=== PATIENT | female | born 1990 | race Hispanic/Latino ===

== ENCOUNTER 2020-04-04 19:35 | Observation (INO) | payer SELFPAY ==
[~2020-04-04] VITALS: Ht 162.6 cm; Wt 63.0 kg
--- OUTSIDE RECORDS SUMMARY | 2020-04-04 19:38 | XMS REPORT ---
Author Author [facility] t Organization [facility] Address [address] [place] [address] Phone Unavailable Care Team Providers Care Front End Software Engineer Name Role Phone NO, PCP PCP Unavailable MONA JULIAN Attphys Unavailable Eunice Nguyen CNM Attphys 1Jovan Rn [facility] Attphys Unavailable Porsha Jules MD Attphys Doctor Unassigned, Name No Attphys Unavailable Tereso Wayne CNM Attphys , [facility] Attphys Unavailable MONA JULIAN Admphys Unavailable Porsha Jules MD Admphys Payers Payer Name Policy Type Policy Number Effective Date Expiration Date S ource Problems Condition Name Condition Details Condition Category Status Onset Date Resolution Date Last Treatment Date Treating Clinician Comments Source Pancreatitis Problem Active [facility] Cholecystitis Problem Active [facility] Allergies, Adverse Reactions, Alerts Allergy Name Allergy Type Status Severity Reaction(s) Onset Date Inacti ve Date Treating Clinician Comments Source Aspirin Allergy to substance Active Severe SWELLING IN TON YESSI AND THROAT 2020-03-06 00:00:00 [facility] aspirin DA Active [place] 2019-07-25 00:00:00 [facility] No Known Allergies DA Active U 2019-07-25 00:00:00 [facility] Social History Social Habit Start Date Stop Date Quantity Comments Source Sex Assigned At 1990 00:00:00 1990 00:00:00 Female [facility] Medications Ordered Medication Name Filled Medication Name Start Date Stop Da te Current Medication? Ordering Clinician Indication Dosage Frequency Signature (SIG) Comments Components Source Famotidine (Pepcid) 20 Mg TABLET Famotidine (Pepcid) 20 Mg T ABLET 2020-03-10 08:52:00 Yes 20 Twice A Day [facility] Ondansetron Hcl (Zofran*) 4 Mg TABLET Ondansetron Hcl (Zofra n*) 4 Mg TABLET 2020-03-10 08:52:00 Yes 4 Every 4 Hour s as needed for Nausea/Vomiting [facility] Vital Signs Vital Name Observation Time Observation Value Comments Source Body Temperature 2020-03-10 11:46:00 97.7 [degF] [facility] Weight 2020-03-08 00:47:00 159.56 [lb_av] [facility] BMI (Body Mass Index) 2020-03-08 00:47:00 25.4 kg/m2 [facility] Procedures Procedure Date / Time Performed Performing Clinician Antonio cruz US Gallbladder 2020-03-10 00:00:00 [facility] Magnetic resonance cholangiopancreatography (MRCP) wit hout contrast 2020-03-07 00:00:00 [facility] CT of abdomen and pelvis without contrast 2020-03-06 00:00:00 [facility] Computed tomography of abdomen with contrast 2020-03-06 00:00:00 [facility] Plan of Care Planned Activity Planned Date Details Comments Source Instructions Cholelithiasis [facility] Encounters Start Date/Time End Date/Time Encounter Type Admission Type [facility] Care Department Encounter ID Source 2020-03-06 17:55:00 2020-03-10 14:24:00 Discharged Inpatient 1 MONA JULIAN [facility] [id number] [facility] 2020-01-09 10:52:18 2020-01-09 11:47:42 Routine Visit Yeny Nguyen [facility] [employer]ENT[employer] METAL [facility] [id number] 2019-12-26 10:04:52 2019-12-26 10:45:22 Nurse Visit 1Christopher Rn [facility] [employer] APPRENTICE METAL [facility] [id number] 2019-12-19 06:31:00 2019-12-21 13:20:00 Hospital Encounter Charly Jules [facility] [id number] 2019-12-19 00:00:00 2019-12-19 00:00:00 Orders Only D octor Unassigned, [place] [facility] [id number] 2019-12-17 13:16:43 2019-12-17 14:01:45 Routine Visit Viviana Wayne [facility] [employer] MET[employer] [facility]ILD [facility] [id number] 2019-12-13 15:34:16 2019-12-13 16:37:54 Routine Visit Viviana Wayne [facility] [employer]ENT[employer] MET[employer] [facility] [id number] 2019-07-18 16:05:34 2019-07-18 16:50:45 Routine Visit Yeny Nguyen [facility] [employer] APPRENTICE METAL [facility] & CHILD [facility] [id number] 2019-06-19 15:28:12 2019-06-19 16:04:29 Routine Visit Yeny Nguyen [facility] [employer] APPRENTICE METAL [facility] & CHILD [facility] [id number] 2019-06-11 15:27:50 2019-06-11 15:54:27 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 2020-03-10 11:26:00 [place] [address] Patient Name: RANDALL IVORY MR #: [id number] : 1990 Age/Sex: 29/F Req #: [id number] Adm Physician: MONA JULIAN MD Ordered by: MONA JULIAN MD Report #: [id number] Location: MED/SURG Room/Bed: [facility] Procedure: [id number] US/US GALLBLADDER Exam Date: 03/10/20 Exam Time: 0942 REPORT STATUS: Signed EXAM: Right upper quadrant abdominal ultrasound INDICATION: Right upper quadrant pain COMPARISON: CT abdomen and pelvis of 03/06/2020 TECHNIQUE: Transverse and longitudinal images of the right upper quadrant abdomen were obtained FINDINGS: Liver: Size: 14.3 cm in the right midclavicular line, normal Appearance: Increased echogenicity, smooth contour Mass: No focal masses Gallbladder: Multiple echogenic gallstones in the gallbladder. No gallbladder wall thickening, gallbladder distention, or pericholecystic fluid. Gallbladder wall measures 3 mm. Negative sonographic Gallagher's sign. Bile Ducts: Intrahepatic Ducts: No dilatation Extrahepatic Ducts: Common bile duct measures 4 mm Pancreas: Visualized portions of the pancreatic head, neck and proximal body are normal. Kidney: The right kidney measures 10.9 cm without evidence of hydronephrosis or stone. Vessels: Aorta: Visualized portions are normal Inferior Vena Cava: Visualized portions are normal Main Portal Vein: 0.9 cm, normal size with hepatopetal flow. Free Fluid: No ascites or pleural effusion IMPRESSION: Cholelithiasis without sonographic evidence of cholecystitis. Mild hepatic steatosis. Signed by: Cuba Payton MD on 03/10/2020 11:28 AM Dictated By: CUBA PAYTON MD 27 Transcribed By: DENISSE on 03/10/201127 COPY TO: MONA JULIAN MD Serum or plasma total bilirubin measurement (mass/volume) 26-03-04 05:15:00 Test Item Total Bilirubin (test code = 1975-2) 0.9 0.2-1.2 [facility] conjugated bilirubin measurement (mass/volume)2020-03-10 05:15:00* Test Item Value Reference Range Interpretation Comments Direct Bilirubin (test code = 39632-7) 0.5 0.0-0.5 [facility] procedure less than one hour [id number] 05:15:00* Test Item Value Reference Range Interpretation Comments Aspartate Amino Transf (AST/SGOT) (test code = Aspartate Amino Transf (AST/SGOT)) 63 5-34 [facility] alanine aminotransferase measurement (enzymatic activity/volume)2020-03-10 05:15:00* Test Item Value Reference Range Interpretation Comments Alanine Aminotransferase (ALT/SGPT) (test code = 1742-6) 532 0-55 [facility] protein measurement (mass/volume)2020-03-10 05:15:00* Test Item Value Reference Range Interpretation Comments Total Protein (test code = 2885-2) 6.8 6.5-8.1 [facility] albumin measurement (mass/volume)2020-03-10 05:15:00* Test Item Value Reference Range Interpretation Comments Albumin (test code = 1751-7) 3.7 3.5-5.0 [facility] alkaline phosphatase measurement (enzymatic activity/volume)2020-03-10 05:15:00* Test Item Value Reference Range Interpretation Comments Alkaline Phosphatase (test code = 6768-6) 155 40-150 [facility] lipase measurement (enzymatic activity/volume)2020-03-10 05:15:00* Test Item Value Reference Range Interpretation Comments Lipase (test code = 3040-3) 92 8-78 [facility] leukocytes automated count (number/volume)2020-03-09 05:30:00* Test Item Value Reference Range Interpretation Comments White Blood Count (test code = 6690-2) 5.17 4.8-10.8 [facility] erythrocytes automated count (number/volume)2020-03-09 05:30:00* Test Item Value Reference Range Interpretation Comments Red Blood Count (test code = 789-8) 4.79 3.6-5.1 [facility] hemoglobin measurement (moles/volume)2020-03-09 05:30:00* Test Item Value Reference Range Interpretation Comments Hemoglobin (test code = 28214-4) 13.3 12.0-16.0 [facility] HospitalAutomated blood hematocrit (volume fraction)2020-03-09 05:30:00* Test Item Value Reference Range Interpretation Comments Hematocrit (test code = 4544-3) 39.5 34.2-44.1 [facility] HospitalAutomated erythrocyte mean corpuscular rttaha6746-65-69 05:30:00* Test Item Value Reference Range Interpretation Comments Mean Corpuscular Volume (test code = 787-2) 82.5 81-99 [facility] HospitalAutomated erythrocyte mean corpuscular hemoglobin (mass per erythrocyte)2020-03-09 05:30:00* Test Item Value Reference Range Interpretation Comments Mean Corpuscular Hemoglobin (test code = 785-6) 27.8 28-32 [facility] HospitalAutomated erythrocyte mean corpuscular hemoglobin concentration measurement (mass/volume)2020-03-09 05:30:00* Test Item Value Reference Range Interpretation Comments Mean Corpuscular Hemoglobin Concent (test code = 786-4) 33.7 31-35 [facility] HospitalRDW KdnSm-Evp6978-14-03 05:30:00* Test Item Value Reference Range Interpretation Comments Red Cell Distribution Width (test code = 34948-1) 13.8 11.7 -14.4 [facility] HospitalAutomated blood platelet count (count/volume)2020-03-09 05:30:00* Test Item Value Reference Range Interpretation Comments Platelet Count (test code = 777-3) 210 140-360 [facility] HospitalAutomated blood segmented neutrophil count as percentage of total jidwwlhiuc6545-11-17 05:30:00* Test Item Value Reference Range Interpretation Comments Neutrophils (%) (Auto) (test code = 93693-7) 57.7 38.7-80.0 [facility] HospitalAutomated blood lymphocyte count as percentage ot total qtqslvctgn0610-26-78 05:30:00* Test Item Value Reference Range Interpretation Comments Lymphocytes (%) (Auto) (test code = 736-9) 26.3 18.0-39.1 [facility] HospitalAutomated blood monocyte count as percentage of total nzbzpvjlkq2696-30-13 05:30:00* Test Item Value Reference Range Interpretation Comments Monocytes (%) (Auto) (test code = 5905-5) 10.4 4.4-11.3 [facility] HospitalAutomated blood eosinophil count as percentage of total oibbcfspit2809-89-65 05:30:00* Test Item Value Reference Range Interpretation Comments Eosinophils (%) (Auto) (test code = 713-8) 4.6 0.0-6.0 [facility] HospitalAutomated blood basophil count as percentage of total hnymonskyp5978-45-61 05:30:00* Test Item Value Reference Range Interpretation Comments Basophils (%) (Auto) (test code = 706-2) 0.8 0.0-1.0 [facility] HospitalFluoroscopic procedure less than one hour pszzlmnd7381-18-24 05:30:00* Test Item Value Reference Range Interpretation Comments IM GRANULOCYTES % (test code = IM GRANULOCYTES %) 0.2 0.0- 1.0 [facility] HospitalAutomated blood neutrophil count 2020-03-09 05:30:00* Test Item Value Reference Range Interpretation Comments Neutrophils # (Auto) (test code = 751-8) 3.0 2.1-6.9 [facility] HospitalBlood lymphocytes count (number/volume) 2020-03-09 05:30:00* Test Item Value Reference Range Interpretation Comments Lymphocytes # (Auto) (test code = 59370-9) 1.4 1.0-3.2 [facility] monocytes automated count (number/volume)2020-03-09 05:30:00* Test Item Value Reference Range Interpretation Comments Monocytes # (Auto) (test code = 742-7) 0.5 0.2-0.8 [facility] HospitalAutomated blood eosinophil count 2020-03-09 05:30:00* Test Item Value Reference Range Interpretation Comments Eosinophils # (Auto) (test code = 711-2) 0.2 0.0-0.4 [facility] HospitalAutomated blood basophil count (count/volume)2020-03-09 05:30:00* Test Item Value Reference Range Interpretation Comments Basophils # (Auto) (test code = 704-7) 0.0 0.0-0.1 [facility] HospitalFluoroscopic procedure less than one hour iccosnho7065-41-18 05:30:00* Test Item Value Reference Range Interpretation Comments Absolute Immature Granulocyte (auto (izabel t code = Absolute Immature Granulocyte (auto) 0.01 0-0.1 [facility] sodium measurement (moles/volume)2020-03-09 05:30:00* Test Item Value Reference Range Interpretation Comments Sodium Level (test code = 2951-2) 138 136-145 [facility] potassium measurement (moles/volume)2020-03-09 05:30:00* Test Item Value Reference Range Interpretation Comments Potassium Level (test code = 2823-3) 3.2 3.5-5.1 [facility] chloride measurement (moles/volume)2020-03-09 05:30:00* Test Item Value Reference Range Interpretation Comments Chloride Level (test code = 2075-0) 110 98-107 [facility] carbon dioxide, total measurement (moles/volume)2020-03-09 05:30:00* Test Item Value Reference Range Interpretation Comments Carbon Dioxide Level (test code = 2028-9) 16 22-29 [facility] anion bkf1364-07-41 05:30:00* Test Item Value Reference Range Interpretation Comments Anion Gap (test code = 71796-5) 15.2 8-16 [facility] urea nitrogen measurement (mass/volume)2020-03-09 05:30:00* Test Item Value Reference Range Interpretation Comments Blood Urea Nitrogen (test code = 3094-0) 5 7-26 [facility] creatinine measurement (mass/volume)2020-03-09 05:30:00* Test Item Value Reference Range Interpretation Comments Creatinine (test code = 2160-0) 0.62 0.57-1.11 [facility] urea nitrogen/creatinine mass xdpaq1934-28-71 05:30:00* Test Item Value Reference Range Interpretation Comments BUN/Creatinine Ratio (test code = 3097-3) 8 6-25 [facility] HospitalEstimated glomerular filtration rate (GFR) dtlkoewsixzrc5572-11-61 05:30:00* Test Item Value Reference Range Interpretation Comments Estimat Glomerular Filtration Rate (test code = 624336410) > 60 >60 Ranges were taken from the National Kidney Disease Education Program and the [facility] Kid[facility] Foundation literature.Reference ranges:60 or greater: Worsul74-55 ( for 3 consecutive months): Chronic kidney disease 15 or less: Kidney failureCH[facility]stGlucose cpvlkikuxxg6602-80-25 05:30:00* Test Item Value Reference Range Interpretation Comments Glucose Level (test code = HUY7427) 65 74-118 [facility] calcium measurement (mass/volume)2020-03-09 05:30:00* Test Item Value Reference Range Interpretation Comments Calcium Level (test code = 35275-2) 8.9 8.4-10.2 [facility] HospitalMRI MRCP [id number] 19:05:00 [place] [address] Patient Name: RANDALL IVORY MR #: [id number] : 1990 Age/Sex: 29/F Req #: [id number] Adm Physician: MONA JULIAN MD Ordered by: MONA JULIAN MD Report #: [id number] Location: MED/SURG Room/Bed: [facility] Procedure: [id number] M RI/MRI MRCP WO Exam Date: Exam Time: REPORT STATUS: Signed EXAMINATION: MRI Abdome n without contrast/MRCP. TECHNIQUE: Axial T1 nonfat sat in and out of p hase, axial T2 with and without fat sat, coronal T2 nonfat sat, axial DWI and ADC MR images of the abdomen were obtained. No intravenous gadolinium was admi nistered. Heavily T2-weighted MRCP images were also performed including thick and thin slab ASSETT and 3-D reconstructions. CLINICAL HISTORY:Cholecyst itis, pancreatitis COMPARISON: CT abdomen 03/06/2020 FINDINGS:LACK OF G ADOLINIUM DECREASES SENSITIVITY FOR DETECTION OF INTRA-ABDOMINAL PATHOLOGY. LOWER THORAX: Unremarkable. LIVER: The hepatic contour is normal.. No s ignificant hepatic signal abnormality. No focal hepatic lesions. BILIA RY: No intra or extrahepatic biliary ductal dilation. The common bile duct is normal in caliber, measuring approximately 4 mm at the bradley hepatis and 2 mm at the pancreatic head. No intraluminal filling defects, strictures or extrins ic compressions.. Moderate to marked diffuse gallbladder wall thickening, whi ch measures approximately 1.0 cm. No gallbladder stones or sludge. PANCRE : .No mass or ductal dilatation. No peripancreatic increased T2 signal, free fluid or fluid collections. Assessment of the pancreatic parenchyma is limite d by lack of intravenous contrast. SPLEEN: No splenomegaly. ADRENALS: No nodules. KIDNEYS: No hydronephrosis or contour abnormalities in the imag ed portion of the kidneys. PERITONEUM / RETROPERITONEUM: No upper abdomin al free fluid. GI TRACT: Visualized bowel shows no dilation. LYMPH NOD ES: No upper abdominal lymphadenopathy. VESSELS: Normal flow voids are iden tified BONES AND SOFT TISSUES: No abnormal bone marrow signal. No soft tis ladan abnormalities. IMPRESSION: 1. No MR evidence of choledocholithi asis. 2. Diffuse gallbladder wall thickening suggesting cholecystitis. No s tones or sludge are identified. 3. Unremarkable appearance of the pancrea s in this noncontrast exam. Assessment of pancreatic parenchyma is limited by lack of intravenous contrast. Signed by: Dr. Olu Gaspar M.D. on 03/08/2020 7:13 PM Dictated By: OLU GASPAR MD 191 Transcribed By: DENISSE on 03/08/20 191 3 COPY TO: MONA JULIAN MD Serum or plasma ethanol measurement (mass/volume)2020-03-07 16:02:00* Test Item Value Reference Range Interpretation Comments Ethyl Alcohol Level (test code = 5643-2) < 10.0 0.0-10.0 [facility]CT [facility] [id number] 17:00:00 [facility] [address] [place] [address] Patient Name: RANDALL IVORY MR #: [id number] : 1990 Age/Sex: 29/F Req #: [id number] Adm Physician: Ordered by: PABLO DUNCAN COLOR CHECKER Report #: [id number] Location: ER Room/Bed: Procedure: CT/CT ABDOMEN W Exam Date: 03/06/20 Exam Time: 16 47 REPORT STATUS: Signed CT o f the abdomen. Comparison: CT of the abdomen and pelvis without oral or IV contrast done approximately 90 minutes earlier. Clinical History: Abdominal pain with elevation of lipase. Technique: CT scan of the abdomen was perfo rmed. Intravenous contrast administration was utilized. Oral contrast admini stration was not utilized. Multiple images were submitted for interpretation. This exam was performed according to our departmental dose-optimization progr am which includes automated exposure control, adjustment of the mA and/or kV according to patient size Discussion: Inferior chest: Unremarkable Li abdirizak: Unremarkable Spleen: Unremarkable Pancreas: Unremarkable Biliary t ree and gallbladder: There is severe wall thickening of the gallbladder. The gallbladder wall measures approximately 8 mm. There is no radiopaque calculus. There is no pericholecystic fluid collection at this time. There is no gallbl adder associated gas. There is no intra or extrahepatic biliary ductal dilatat ion. For example the common bile duct measures 6 mm. There is no biliary ducta l calculus. Adrenal glands: Unremarkable Kidneys: Unremarkable Vasculatu re: Unremarkable Lymph nodes: No lymphadenopathy Bowel: Unremarkable Fl uid: No free fluid Bones: Unremarkable Impression: CT findings sugges tive of acute cholecystitis without abscess formation at this time. No radiopa que biliary calculi are seen. Signed by: Adan Watson MD on 03/06/2020 5:0 5 PM Dictated By: ADAN WATSON MD 04 Transcribed By: DENISSE on 03/06/201704 COPY TO: PABLO DUNCAN COLOR CHECKER CT ABDOMEN/PELVIS [id number] 16:04:00 [place] [address] Patient Name: RANDALL IVORY MR #: [id number] : 1990 Age/Sex: 29/F Req #: [id number] [facility] Physician: Ordered by: PABLO DUNCAN COLOR CHECKER Report #: [id number] Location: ER Room/Bed: Procedure: CT/CT ABDOMEN/PELVIS WO Exam Date: 03/06/20 Exam Time: 1510 REPORT STATUS: Signed ADDENDUM #1 New information just became available on this patient. There is elevation of lipase. The pancreas does not show any per ipancreatic stranding, low-density areas or peripancreatic fluid collections. There is no gallstone. There is no intrahepatic or extrahepatic biliary dilata tion. Please note that an IV contrast enhanced CT of the abdomen would be help ful to further evaluate the biliary tree and pancreas. A single phase Portal v enous phase CT of the abdomen may be performed to minimize radiation exposure in this woman of childbearing age. Signed by: Adan Watson MD on 020 4:[address] of the abdomen and pelvi s. Comparison: None Clinical History: Abdominal pain nausea vomiting epigastric Technique: Helical CT scan of the abdomen and pelvis was perform ed. Intravenous contrast administration was not utilized. Oral contrast ad ministration was not utilized. Coronal and sagittal reconstructions were gener ated from the raw data. This exam was performed according to our department al dose-optimization program which includes automated exposure control, adjust ment of the mA and/or kV according to patient size Discussion: Infe rior chest: Unremarkable. Liver: Unremarkable Spleen: Unremarkable Panc reas: Unremarkable Biliary tree and gallbladder: Unremarkable Adrenal glan ds: Unremarkable Kidneys and ureters: Unremarkable. Specifically, no perinep hric stranding, hydronephrosis, renal or ureteric calculi. Vasculature: Unr emarkable Lymph nodes: No lymphadenopathy Bowel: Unremarkable. Specificall y, no bowel obstruction. Pelvis: Urinary bladder is unremarkable. Female pelvi c organs unremarkable. Pelvic wall unremarkable. Peritoneum: Unremarkable Perineal compartments: unremarkable. Fluid: No free fluid Bones: Unremarka ble Body wall: Unremarkable Impression: No significant abnormality on t he CT of abdomen and pelvis without contrast in this patient. Specifically, no findings to account for the patient's symptoms. Signed by: Adan Watson MD on 03/06/2020 4:06 PM Dictated By: ADAN WATSON MD Electronically S igned By: ADAN WATSON MD on 03/06/20 161 Transcribed By: DENISSE on 1606 COPY TO: PABLO DUNCAN NP Urine color determination 2020-03-06 14:20:00* Test Item Value Reference Range Interpretation Comments Urine Color (test code = 5778-6) STRAW YELLOW [facility] Hospital[facility] wracbkg3897-35-94 14:20:00* Test Item Value Reference Range Interpretation Comments Urine Clarity (test code = 82701-1) SL CLOUDY CLEAR [facility] Urine by Test strip 2020-03-06 14:20:00* Test Item Value Reference Range Interpretation Comments Urine Specific Allison (test code = 5811-5) 1.020 1.010-1.02 5 [facility] HospitalU[facility] pH measurement by automated test knnkc1725-95-50 14:20:00* Test Item Value Reference Range Interpretation Comments Urine pH (test code = 90644-8) 7 5-7 [facility] HospitalUrine leukocyte esterase detection by [id number] 14:20:00* Test Item Value Reference Range Interpretation Comments Urine Leukocyte Esterase (test code = 5799-2) NEGATIVE [facility]GATIVE [facility] nitrite [id number] 14:20:00* Test Item Value Reference Range Interpretation Comments Urine Nitrite (test code = 98650-2) NEGATIVE NEGATIVE [facility] protein measurement by test strip (mass/volume)2020-03-06 14:20:00* Test Item Value Reference Range Interpretation Comments Urine Protein (test code = 5804-0) NEGATIVE NEGATIVE [facility] HospitalU[facility] glucose [id number] 14:20:00* Test Item Value Reference Range Interpretation Comments Urine Glucose (UA) (test code = 2349-9) NEGATIVE NEGATIVE [facility] HospitalUrine ketones detection by automated test [id number] 14:20:00* Test Item Value Reference Range Interpretation Comments Urine Ketones (test code = 96925-6) NEGATIVE NEGATIVE [facility] HospitalUrine urobilinogen measurement by test strip (mass/volume)2020-03-06 14:20:00* Test Item Value Reference Range Interpretation Comments Urine Urobilinogen (test code = 03529-2) 0.2 0.2-1 [facility] HospitalU[facility] total bilirubin measurement (mass/volume)2020-03-06 14:20:00* Test Item Value Reference Range Interpretation Comments Urine Bilirubin (test code = 1978-6) MODERATE NEGATIVE [facility] HospitalUrine erythrocytes [id number] 14:20:00* Test Item Value Reference Range Interpretation Comments Urine Blood (test code = 23509-5) TRACE NEGATIVE [facility] HospitalAutomated urine sediment leukocyte count by microscopy (number/high power field)2020-03-06 14:20:00* Test Item Value Reference Range Interpretation Comments Urine WBC (test code = 5821-4) NONE 0-5 [facility] HospitalErythrocytes detection in urine sediment by light [id number] 14:20:00* Test Item Value Reference Range Interpretation Comments Urine RBC (test code = 58005-0) 0-5 0-5 [facility] HospitalBacteria detection in urine sediment by light [id number] 14:20:00* Test Item Value Reference Range Interpretation Comments Urine Bacteria (test code = 41410-4) RARE NONE [facility] HospitalEpithelial cells detection in urine sediment by light yyyxvpycmb6070-22-82 14:20:00* Test Item Value Reference Range Interpretation Comments Urine Epithelial Cells (test code = 42040-4) FEW NONE [facility] HospitalPlasma globulin measurement (mass/volume) 2020-03-06 14:20:00* Test Item Value Reference Range Interpretation Comments Globulin (test code = 61645-7) 2.9 2.3-3.5 [facility] albumin/globulin mass [id number] 14:20:00* Test Item Value Reference Range Interpretation Comments Albumin/Globulin Ratio (test code = 1759-0) 1.4 0.8-2.0 [facility] amylase measurement (enzymatic activity/volume)2020-03-06 14:20:00* Test Item Value Reference Range Interpretation Comments Amylase Level (test code = 1798-8) 3642 25-125 [facility] or plasma choriogonadotropin ( test) ayqphxwzv1053-10-97 14:20:00* Test Item Value Reference Range Interpretation Comments Human Chorionic Gonadotropin, Qual (test code = 2118-8) NEGATIVE NEGATIVE [facility] HospitalURINALYSIS [id number] 06:57:00* Test Item Value Reference Range Interpretation Comments UA COLOR (test code = COLU) YELLOW YELLOW UA APPEARANCE (test code = APPU) CLEAR CLEAR UA GLUCOSE DIPSTICK (test code = DGLUU) NEGATIVE mg/dL NEGATIVE UA BILIRUBIN DIPSTICK (test code = BILU) NEGATIVE mg/dL NEGATIVE UA KETONE DIPSTICK (test code = KETU) 40 (2+) mg/dL NEGATIVE A UA SPECIFIC GRAVITY (test code = SGU) 1.017 1.001-1.035 UA BLOOD DIPSTICK (test code = MUNIRA) Negative mg/dL NEGATIVE UA PH DIPSTICK (test code = JACINTO) 6.0 5.0-8.0 UA PROTEIN DIPSTICK (test code = PROU) NEGATIVE mg/dL NEGATIVE UA UROBILINIOGEN DIPSTICK (test code = URO) Normal mg/dL NEGATIVE UA NITRITE DIPSTICK (test code = JANICE) NEGATIVE NEGATIVE UA LEUKOCYTE ESTERASE W REFLEX (test code = LEUUR) 500 Alexia/u L (3+) Alexia/uL NEGATIVE A UA WBC (test code = WBCU) 11-20 per HPF 0-5 A UA RBC (test code = RBCU) 0-2 #/HPF 0-5 UA EPITHELIAL CELLS (test code = EPIU) MOD per HPF FEW UA BACTERIA (test code = BACU) FEW #/HPF NONE A UA MUCUS (test code = MUCU) FEW #/LPF FEW SPECIMEN COMMENTS: repeat urinalysis Urine Source? Clean CatchURINALYSIS [id number] 06:55:00* Test Item Value Reference Range Interpretation Comments UA COLOR (test code = COLU) YELLOW YELLOW UA APPEARANCE (test code = APPU) CLEAR CLEAR UA GLUCOSE DIPSTICK (test code = DGLUU) NEGATIVE mg/dL NEGATIVE UA BILIRUBIN DIPSTICK (test code = BILU) NEGATIVE mg/dL NEGATIVE UA KETONE DIPSTICK (test code = KETU) 40 (2+) mg/dL NEGATIVE A UA SPECIFIC GRAVITY (test code = SGU) 1.017 1.001-1.035 UA BLOOD DIPSTICK (test code = MUNIRA) Negative mg/dL NEGATIVE UA PH DIPSTICK (test code = JACINTO) 6.0 5.0-8.0 UA PROTEIN DIPSTICK (test code = PROU) NEGATIVE mg/dL NEGATIVE UA UROBILINIOGEN DIPSTICK (test code = URO) Normal mg/dL NEGATIVE UA NITRITE DIPSTICK (test code = JANICE) NEGATIVE NEGATIVE UA LEUKOCYTE ESTERASE W REFLEX (test code = LEUUR) 500 Alexia/u L (3+) Alexia/uL NEGATIVE A UA WBC (test code = WBCU) per HPF 0-5 UA RBC (test code = RBCU) per HPF 0-5 UA EPITHELIAL CELLS (test code = EPIU) per HPF Few UA BACTERIA (test code = BACU) per HPF NONE SPECIMEN COMMENTS: repeat urinalysis Urine Source? Clean CatchHCG SERUM BETA 2019-07-29 05:58:00* Test Item Value Reference Range Interpretation Comments HCG SERUM BETA (test code = HCG) 81659.0 mIU/mL 0-3 H Interfering substances present in the serum of somepatients may cause a false-positive result in this assay.Questionable elevations in serum hCG should be confirmedwith a urine hCG. Suspected Trophoblastic Neoplasms shouldnot be diagnosed based on serun hCG/beta hCG alone. Theymust be confirmed by clinical history and tissue diagnosis.INTERPRETATION:B-HCG LEVELS <5 SHOULD BE CONSIDERED "NEGATIVE." *WHEN BODERLINE RESULTS ARE ENCOUNTERED,PATIENT SAMPLESSHOULD BE REDRAWN 48 HOURS. 0-1 WEEKS AFTER CONCEPTION 5-50 MIU/ML1-2 WEEKS AFTER CONCEPTION 50-500 MIU/ML2-3 WEEKS AFTER CONCEPTION 100 -5,000 MIU/ML3-4 WEEKS AFTER CONCEPTION 500-10,000 MIU/ML4-5 WEEKS AFTER CONCEPTION 1000 -50,000 MIU/ML5-6 WEEKS AFTER CONCEPTION 10,000-100,000 MIU/ML6-8 WEEKS AFTER CONCEPTION 15,000- 200,000 MIU/ML2-3 MONTHS AFTER CONCEPTION 10,000-100,000 MIU/ML BASIC METABOLIC [id number] 05:42:00* Test Item Value Reference Range Interpretation Comments SODIUM (test code = NA) 139 mmol/L 136-145 N POTASSIUM (test code = K) 3.2 mmol/L 3.5-5.1 L CHLORIDE (test code = CL) 106.0 mmol/L 98-107 N CARBON DIOXIDE (test code = CO2) 26.0 mmol/L 21-32 N ANION GAP (test code = GAP) 10.2 10-20 N GLUCOSE (test code = GLU) 99 mg/dL 74-106 N BLOOD UREA NITROGEN (test code = BUN) 6 mg/dL 7-18 L GLOMERULAR FILTRATION RATE (test code = GFR) > 60 mL/min >=60 Estimated GFR by using Modified MDRD formula.Chronic kidney disease is defined as either kidney damageor GFR <60 mL/min/1.73 m2 for >3 months. CREATININE (test code = CREAT) 0.60 mg/dL 0.55-1.02 N Note change in reference range due to change in reagent. BUN/CREATININE RATIO (test code = BUN/CREA) 9.9 10-20 L CALCIUM (test code = CA) 8.8 mg/dL 8.5-10.1 N HEPATIC FUNCTION [id number] 05:42:00* Test Item Value Reference Range Interpretation Comments TOTAL PROTEIN (test code = PROT) 7.3 gram/dL 6.4-8.2 N ALBUMIN (test code = ALB) 3.3 g/dL 3.4-5.0 L GLOBULIN (test code = GLOB) 4.0 gram/dL 2.7-4.2 N ALBUMIN/GLOBULIN RATIO (test code = A/G) 0.8 0.75-1.50 N BILIRUBIN TOTAL (test code = BILT) 0.60 mg/dL 0.0-1.0 N BILIRUBIN DIRECT (test code = BILD) 0.29 mg/dL 0.0-0.20 H SGOT/AST (test code = AST) 137 IUnit/L 15-37 H SGPT/ALT (test code = ALT) 88 IUnit/L 12-78 H ALKALINE PHOSPHATASE TOTAL (test code = ALKP) 86 IUnit/L 45-117 N Note change in reference range due to change in reagent. [id number] 05:42:00* Test Item Value Reference Range Interpretation Comments LIPASE (test code = LIP) 87 U/L 73.0-393.0 N [id number] 05:42:00* Test Item Value Reference Range Interpretation Comments TROPONIN-I (test code = TROPI) <0.015 ng/mL 0-0.045 N CBC W/O [id number] 05:40:00* Test Item Value Reference Range Interpretation Comments WHITE BLOOD CELL (test code = WBC) 14.2 K/mm3 4.5-12.5 H RED BLOOD CELL (test code = RBC) 4.47 mill/mm3 3.7-5.2 N HEMOGLOBIN (test code = HGB) 12.9 gram/dL 11.5-15.5 N HEMATOCRIT (test code = HCT) 38.3 % 36.0-46.0 N MEAN CELL VOLUME (test code = MCV) 85.7 fL 80-98 N MEAN CELL HGB (test code = MCH) 28.9 picogram 27.0-33.0 N MEAN CELL HGB CONCETRATION (test code = MCHC) 33.7 gram/dL 33.0-36. 0 N RED CELL DISTRIBUTION WIDTH (test code = RDW) 13.7 % 11.6-16. 2 N PLATELET COUNT (test code = PLT) 218 K/mm3 150-450 N MEAN PLATELET VOLUME (test code = MPV) 10.4 fL 6.7-11.0 N CBC W/O [id number] 05:19:00* Test Item Value Reference Range Interpretation Comments WHITE BLOOD CELL (test code = WBC) K/mm3 4.5-12.5 RED BLOOD CELL (test code = RBC) mill/mm3 3.7-5.2 HEMOGLOBIN (test code = HGB) 12.9 gram/dL 11.5-15.5 N HEMATOCRIT (test code = HCT) 38.3 % 36.0-46.0 N MEAN CELL VOLUME (test code = MCV) fL 80-98 MEAN CELL HGB (test code = MCH) picogram 27.0-33.0 MEAN CELL HGB CONCETRATION (test code = MCHC) gram/dL 33.0-36. 0 RED CELL DISTRIBUTION WIDTH (test code = RDW) % 11.6-16. 2 PLATELET COUNT (test code = PLT) K/mm3 150-450 MEAN PLATELET VOLUME (test code = MPV) fL 6.7-11.0 - US ABDOMEN [id number] 04:57:00 Name: RANDALL DE LA CRUZ [facility] : 1990 Age/S: 28 / F [address] [facility] Unit #: [id number] Loc: [place] [address] Phys: Gertrudis Angel COLOR CHECKER Acct: [id number] Dis Date: Status: REG ER PHONE #: [phone] Exam Date: 07/29/2019 0430 FAX #: [phone] Reason: Epigastric EXAMS: CPT CODE: [id number] US ABDOMEN LTD [id number] EXAM: RIGHT UPPER QUADRANT ABDOMINAL ULTRASOUND INDICATION: Epigastric COMPARISON: None available TECHNIQUE: Routine grayscale and color Doppler ultrasound examination of the right upper quadrant was obtained. FINDINGS: The liver is normal in size and measures 15.8 cm. There is normal echogenicity and echotexture of the liver parenchyma. No intrahepatic biliary ductal dilatation. The common bile duct measures 0.6 cm. The main portal vein is normal in size with normal hepatopedal flow. The gallbladder is normal in size. There are multiple gallstones noted within the gallbladder. No pericholecystic fluid is identified. The gallbladder wall thickness is normal measuring 0.3 cm. Negative Gallagher sign. The visualized pancreas is normal. The right kidney measures 11.9 x 4.2 x 5.4 cm and is normal in appearance with normal cortical thickness and cortical echogenicity. No hydronephrosis or nephrolithiasis. Abdominal aorta is normal in course and caliber. The IVC is normal. No free fluid or pleural effusion is ident ified. IMPRESSION: Cholelithiasis with no sonographic ev idence of acute cholelithiasis. Normal sonographic appearance of the conchis er and right kidney. LOCATION: A1 Electro nically Signed by Naomi Patiño M.D. on 07/29/2019 at 0456 Reported and signed by: Naoim ovalle M.D. PAGE 1 Signed Report (CONTINUED) Name: RANDALL DE LA CRUZ [facility] : 1990 Age/S: 28 / F [address] [facility] Unit #: [id number] Loc: [place] [address] Ph s: Gertrudis Angel NP Acct: [id number] Dis Date: Status: REG ER PHONE #: [phone] Exam Date: 07/29/2019 0430 FAX #: [phone] Reason: Epigastric EXAMS: CPT CODE: [id number] ABDOMEN LTD 89956 <Continued> CC: Gertrudis Angel NP Technologist: Patricia Galvan RT(S), RDCA Trnscb Date/Time: 07/29/2019 (0457) 16 Orig Print D/T: S: 07/29/2019 (0530) Probe: PAGE 2 Signed Report URINALYSIS COMPLETE 2019-07-29 03:23:00* Test Item Value Reference Range Interpretation Comments UA COLOR (test code = COLU) YELLOW YELLOW UA APPEARANCE (test code = APPU) Cloudy CLEAR A UA GLUCOSE DIPSTICK (test code = DGLUU) NEGATIVE mg/dL NEGATIVE UA BILIRUBIN DIPSTICK (test code = BILU) NEGATIVE mg/dL NEGATIVE UA KETONE DIPSTICK (test code = KETU) NEGATIVE mg/dL NEGATIVE UA SPECIFIC GRAVITY (test code = SGU) 1.011 1.001-1.035 UA BLOOD DIPSTICK (test code = MUNIRA) Negative mg/dL NEGATIVE UA PH DIPSTICK (test code = JACINTO) 7.5 5.0-8.0 UA PROTEIN DIPSTICK (test code = PROU) NEGATIVE mg/dL NEGATIVE UA UROBILINIOGEN DIPSTICK (test code = URO) Normal mg/dL NEGATIVE UA NITRITE DIPSTICK (test code = JANICE) NEGATIVE NEGATIVE UA LEUKOCYTE ESTERASE W REFLEX (test code = LEUUR) 250 Alexia/u L (2+) Alexia/uL NEGATIVE A UA WBC (test code = WBCU) 6-10 per HPF 0-5 A UA RBC (test code = RBCU) 0-2 #/HPF 0-5 UA EPITHELIAL CELLS (test code = EPIU) MOD per HPF FEW UA BACTERIA (test code = BACU) MODERATE #/HPF NONE A UA MUCUS (test code = MUCU) FEW #/LPF FEW UA AMORPHOUS SEDIMENT (test code = AMORU) MODERATE #/LPF NONE Urine Source? Clean CatchBASIC METABOLIC [id number] 07:49:00* Test Item Value Reference Range Interpretation Comments SODIUM (test code = NA) 141 mmol/L 136-145 N POTASSIUM (test code = K) 2.8 mmol/L 3.5-5.1 Re sults called to [id number] by EDU 07/25/19 0643Critical results verified and read back by Nurse? Y CHLORIDE (test code = CL) 108.0 mmol/L 98-107 H CARBON DIOXIDE (test code = CO2) 22.0 mmol/L 21-32 N ANION GAP (test code = GAP) 13.8 10-20 N GLUCOSE (test code = GLU) 113 mg/dL 74-106 H BLOOD UREA NITROGEN (test code = BUN) 6 mg/dL 7-18 L GLOMERULAR FILTRATION RATE (test code = GFR) > 60 mL/min >=60 Estimated GFR by using Modified MDRD formula.Chronic kidney disease is defined as either kidney damageor GFR <60 mL/min/1.73 m2 for >3 months. CREATININE (test code = CREAT) 0.60 mg/dL 0.55-1.02 N Note change in reference range due to change in reagent. BUN/CREATININE RATIO (test code = BUN/CREA) 10.6 10-20 N CALCIUM (test code = CA) 8.6 mg/dL 8.5-10.1 N HCG SERUM [id number] 07:49:00* Test Item Value Reference Range Interpretation Comments HCG SERUM BETA (test code = HCG) 50238.0 mIU/mL 0-3 H Interfering substances present in the serum of somepatients may cause a false-positive result in this assay.Questionable elevations in serum hCG should be confirmedwith a urine hCG. Suspected Trophoblastic Neoplasms shouldnot be diagnosed based on serun hCG/beta hCG alone. Theymust be confirmed by clinical history and tissue diagnosis.INTERPRETATION:B-HCG LEVELS <5 SHOULD BE CONSIDERED "NEGATIVE." *WHEN BODERLINE RESULTS ARE ENCOUNTERED,PATIENT SAMPLESSHOULD BE REDRAWN 48 HOURS. 0-1 WEEKS AFTER CONCEPTION 5-50 MIU/ML1-2 WEEKS AFTER CONCEPTION 50-500 MIU/ML2-3 WEEKS AFTER CONCEPTION 100 -5,000 MIU/ML3-4 WEEKS AFTER CONCEPTION 500-10,000 MIU/ML4-5 WEEKS AFTER CONCEPTION 1000 -50,000 MIU/ML5-6 WEEKS AFTER CONCEPTION 10,000-100,000 MIU/ML6-8 WEEKS AFTER CONCEPTION 15,000- 200,000 MIU/ML2-3 MONTHS AFTER CONCEPTION 10,000-100,000 MIU/ML URINALYSIS [id number] 06:47:00* Test Item Value Reference Range Interpretation Comments UA COLOR (test code = COLU) YELLOW YELLOW UA APPEARANCE (test code = APPU) Cloudy CLEAR A UA GLUCOSE DIPSTICK (test code = DGLUU) NEGATIVE mg/dL NEGATIVE UA BILIRUBIN DIPSTICK (test code = BILU) NEGATIVE mg/dL NEGATIVE UA KETONE DIPSTICK (test code = KETU) 20 (1+) mg/dL NEGATIVE A UA SPECIFIC GRAVITY (test code = SGU) 1.024 1.001-1.035 UA BLOOD DIPSTICK (test code = MUNIRA) Negative mg/dL NEGATIVE UA PH DIPSTICK (test code = JACINTO) 6.0 5.0-8.0 UA PROTEIN DIPSTICK (test code = PROU) 30 (1+) mg/dL NEGATIVE A UA UROBILINIOGEN DIPSTICK (test code = URO) Normal mg/dL NEGATIVE UA NITRITE DIPSTICK (test code = JANICE) NEGATIVE NEGATIVE UA LEUKOCYTE ESTERASE W REFLEX (test code = LEUUR) 75 Alexia/uL (1+) Alexia/uL NEGATIVE A UA WBC (test code = WBCU) 11-20 per HPF 0-5 A UA RBC (test code = RBCU) 0-2 #/HPF 0-5 UA EPITHELIAL CELLS (test code = EPIU) FEW per HPF FEW UA BACTERIA (test code = BACU) FEW #/HPF NONE A UA CALCIUM OXALATE CRYSTALS (test code = CAOXU) MODERATE #/HPF NONE A UA MUCUS (test code = MUCU) FEW #/LPF FEW Urine Source? Clean CatchBASIC METABOLIC [id number] 06:43:00* Test Item Value Reference Range Interpretation Comments SODIUM (test code = NA) 141 mmol/L 136-145 N POTASSIUM (test code = K) 2.8 mmol/L 3.5-5.1 Re sults called to [id number] by V.LAB.JAYY 07/25/19 0643Critical results verified and read back by Nurse? Y CHLORIDE (test code = CL) 108.0 mmol/L 98-107 H CARBON DIOXIDE (test code = CO2) 22.0 mmol/L 21-32 N ANION GAP (test code = GAP) 13.8 10-20 N GLUCOSE (test code = GLU) 113 mg/dL 74-106 H BLOOD UREA NITROGEN (test code = BUN) 6 mg/dL 7-18 L GLOMERULAR FILTRATION RATE (test code = GFR) > 60 mL/min >=60 Estimated GFR by using Modified MDRD formula.Chronic kidney disease is defined as either kidney damageor GFR <60 mL/min/1.73 m2 for >3 months. CREATININE (test code = CREAT) 0.60 mg/dL 0.55-1.02 N Note change in reference range due to change in reagent. BUN/CREATININE RATIO (test code = BUN/CREA) 10.6 10-20 N CALCIUM (test code = CA) 8.6 mg/dL 8.5-10.1 N HCG SERUM [id number] 06:43:00* Test Item Value Reference Range Interpretation Comments HCG SERUM BETA (test code = HCG) mIU/mL 0-3 - US PREG AFTER [id number] 06:17:00 Name: RANDALL JAVIER [facility] : 1990 Age/S: 28 / F [address] [facility] Unit #: [id number] Loc: [place] [address] Phys: Dillan Up BEHAVIORAL HEALTH SPECIALIST Acct: [id number] Dis Date: Status: REG ER PHONE #: [phone] Exam Date: 07/25/2019 0557 FAX #: [phone] Reason: VAGINAL BLEEDING/PELVIC PAIN EXAMS: CPT CODE: [id number] US PREG AFTER TRI 24291 EXAM: LIMITED OBSTETRIC ULTRASOUND INDICATION: VAGINAL BLEEDING/PELVIC PAIN COMPARISON: None available TECHNIQUE: Routine grayscale and color Doppler ultrasound examination of the . FINDINGS: There is a single uterine in cephalic presentation. The pl acenta is posterior. There is no evidence of previa or protrusion. The c ervix is closed and measures 2.6 cm. Estimated heart rate is 146 fabiana ts per minute. Amniotic fluid index is within normal limits. Approximate sonographic age is 17 weeks 0 days based upon the following: BPD 3.66 cm, 17 weeks 1 day. HC 13.66 cm, 17 weeks 1 day. F L 2.26 cm, 16 weeks 5 days. AC 11.05 cm, 16 weeks 6 days. Fe napoleon ratios include: CI: 0.80 FL/AC: 0.20 HC/AC: 1.24 FL/ BPD: 0.62 weight estimate: 172.65 Grams, 44.6 WT % Limited evaluation of the anatomy was performed. Maternal ovaries: Not identified IMPRESSION: Single intr auterine in cephalic presentation with an approximate sonograp hic age of 17 weeks 0 days. 2. No abnormality identified. LOCATION: A1 PAGE 1 Signed Report (CONTINUED) Name: RANDALL JAVIER [facility] : 1990 Age/S: 28 / F [address] [facility] Unit #: [id number] Loc: [place] [address] Phys: Dillan Up BEHAVIORAL HEALTH SPECIALIST Acct: [id number] Dis Date: Status: REG ER PHONE #: [phone] Exam Date: 07/25/2019 0557 FAX #: [phone] Reason: VAGINAL BLEEDING/PELVIC PAIN EXAMS: CPT CODE: [id number] US PREG AFTER 1ST TRI 81031 < Continued> at 0617 Reported and signed by: Naomi Patiño M.D. CC: Dillan UpP Technologist: CARMEN AGUIRRE RDMS Trnscb Date/Time: 07/25/2019 (616) 16 Orig Print D/T: S: 07/25/2019 (619) Probe: PAGE 2 Signed Report CBC W/O [id number] 06:08:00* Test Item Value Reference Range Interpretation Comments WHITE BLOOD CELL (test code = WBC) 11.2 K/mm3 4.5-12.5 N RED BLOOD CELL (test code = RBC) 4.07 mill/mm3 3.7-5.2 N HEMOGLOBIN (test code = HGB) 12.0 gram/dL 11.5-15.5 N HEMATOCRIT (test code = HCT) 34.6 % 36.0-46.0 L MEAN CELL VOLUME (test code = MCV) 85.0 fL 80-98 N MEAN CELL HGB (test code = MCH) 29.5 picogram 27.0-33.0 N MEAN CELL HGB CONCETRATION (test code = MCHC) 34.7 gram/dL 33.0-36. 0 N RED CELL DISTRIBUTION WIDTH (test code = RDW) 13.9 % 11.6-16. 2 N PLATELET COUNT (test code = PLT) 195 K/mm3 150-450 N MEAN PLATELET VOLUME (test code = MPV) 10.2 fL 6.7-11.0 N
--- OUTSIDE RECORDS SUMMARY | 2020-04-04 19:38 | XMS REPORT | Summary of Care ---
Author Author [facility] Organization [facility] Address Unknown Phone Unavailable Care Team Providers Care Nurse Discharge Planner Name Role Phone Viviana Wayne CNM PCP Reason for Referral * (Routine) Referred By Contact Referred To Contact Status Reason Specialty Diagnoses / Procedures Charly Jules MD [address] [employer] [address] [address] New Request OB Satellites Diagnoses S/P section P rocedures DISCHARGE FOLLOW-UP: [facility] Reason for Visit * Auth/Cert Referred By Contact Referred To Contact Status Reason Specialty Diagnoses / Procedures Jsa[address] [place] [id number] Obstetrics Diagnoses P rocedures DELIVERY Encounter Details Care Team Description Date Type Department Charly Jules MD [address] [email or web address] [address] 39 weeks gestation of 12/19/2019 [facility] Mother Baby Unit (J 8C) - Encounter 301 [facility] 12/21/2019 [place] [address] Allergies Comments Active Allergy Reactions Severity Noted Date Was a child Aspirin Swelling 01/28/2015 documented as of this encounter (statuses as of 12/21/2019) Medications End Date Status Medication Sig Dispensed Refills Start Date Active simethicone 80 mg Take 2 60 tablet 1 12/20/19 2 chewable tablets by 0 tabletIndications: S/P mouth after section meals and at bedtime as needed for Gas. Active vitamin w/FA Take 1 tablet 100 tablet 3 tabletIndications: S/P by mouth 0 section daily. Active docusate calcium 240 mg Take 1 60 capsule 1 capsuleIndications: S/P capsule by 0 section mouth once daily as needed for Constipation. Active ferrous sulfate 325 mg Take 1 tablet 60 tablet 2 0 (65 mg iron) by mouth 2 0 tabletIndications: S/P (two) times section daily. Active HYDROcodone-acetaminophen Take 1 tablet 20 tablet 0 5-325 mg by mouth 0 tabletIndications: S/P every 6 (six) section hours as needed for Pain (scale 4-6). 12/20/2019 Discontinued PNV 67-iron ps-folate Take 1 60 capsule 6 11/08 no.1-dha (VITAFOL ULTRA) capsule by 0 29 mg iron- 1 mg-200 mg mouth daily. CapIndications: High-risk in third trimester documented as of this encounter (statuses as of 12/21/2019) Active Problems Problem Noted Date 39 weeks gestation of 12/19/2019 Breech presentation 11/12/2019 Gallstones 08/21/2019 High-risk in third trimester 07/18/2019 Bicornuate uterus 09/22/2015 Comments Yes documented as of this encounter (statuses as of 12/21/2019) Resolved Problems Problem Noted Date Resolved Date Need for Tdap vaccination 10/26/2019 11/12/2019 Need for prophylactic vaccination and inoculation aga inst influenza 09/27/2019 10/11/2019 Insertion of implantable subdermal contraceptive 6 07/18/2019 Overview: 01/21/16 Implant placed Encounter for removal of intrauterine contraceptive device 01/05/2016 07/18/2019 Overview: 01/05/16 removal IUD Surveillance of previously prescribed intrauterine co ntraceptive device 12/30/2015 07/18/2019 Overview: 12/30/15 IUD check 01/05/16 IUD removal, advised no IUD for contraception d/t abnormal uterus Contraception 11/13/2015 07/18/2019 Overview: 01/05/16 IUD removed Encounter for insertion of intrauterine contraceptive devic e 11/13/2015 07/18/2019 Family planning counseling 11/13/2015 07/18/2019 care and examination of lactating mother 201411/13/2015 General counseling and advice for contraceptive management 10/14/2015 07/18/2019 Third degree laceration of perineum, type 3a 09/23/2015 11/13/2015 Overview: Perineal, 3A Extention, anal sphincter intact Vaginal delivery 09/23/2015 11/13/2015 Active labor at term 09/22/2015 09/23/2015 High-risk , third trimester [O09.93] 09/17/2015 10/14/2015 Immunizations up to date 09/02/2015 10/14/2015 Overview: Tdap and flu given this pg RESEARCH: ARRIVE-Expectant Managment 09/02/2015 1 12/15/2014 Overview: This patient was consented in the ARRIV E Research Study on 09/02/15. IRB # [id number], PI Dr. Szymanski Patient was randomized into the study o n 09/19/2015 and will be in the following group: Expectant Management Arm Pt. Must have at least weekly follow-up visits with provider. Unless pt. delivers spontaneously or a medical indication presents, will continue until at least 40.6 weeks. At 40.6 weeks, the patient may be induc ed at the provider s discretion or continue expectant bunny gement, but must undergo induction if not delivered by 42.2 weeks. testing must be started no later than 41.6 weeks (may be started earlier at the provider s discretion). [email or web address] Page r [phone] Supervision of other high-risk , third trimester 07/17/2015 10/14/2015 Overview: S=d and c/w exam High-risk , first trimester [V23.9] 02/06/2015 09/02/2015 Overview: , NOB at 6w5d per LMP Other specified screening(V28.89) 02/06/2015 10/14/2015 Overview: sono requested, Desires QUAD 28 wk labs wnl, RH + Screening examination for pulmonary tuberculosis 5 10/14/2015 Overview: PPD given 03/10/15. Result neg Flu vaccine need 02/06/2015 09/02/2015 Overview: Flu vaccine 08/19/15 History of migraine 02/06/2015 10/14/2015 Overview: reprts dx 9 yrs ago, last episode 4 mon ths ago, uses Tyelnol. Acid reflux 02/06/2015 10/14/2015 documented as of this encounter (statuses as of 12/21/2019) Immunizations Name Administration Dates Next Due HPV9 12/21/2019 Influenza Virus Vaccine 09/27/2019 Quad .5 mL IM 6+ MO Influenza Virus Vaccine 08/19/2015 Quad IM 3+ YRS PPD (TB) 03/10/2015 TDAP (ADACEL) VACCINE 10/26/2019 Tdap 07/03/2015 documented as of this encounter Social History Date Tobacco Use Types Packs/Day Years Used Never Smoker Smokeless Tobacco: Never Used Drinks/Week oz/Week Comments Alcohol Use 0 Standard drinks or equivalent 0.0 No Comments Yes Sex Assigned at Date Recorded Not on file Industry Job Start Date Occupation Not on file Not on file Not on file Travel End Travel History Travel Start No recent travel history available. documented as of this encounter Last Filed Vital Signs Reading Time Taken Comments Vital Sign 104/56 12/21/2019 8:00 AM RESIDENTIAL HOUSEKEEPER Blood Pressure 74 12/21/2019 8:00 AM RESIDENTIAL HOUSEKEEPER Pulse 36.8 C (98.3 F) 12/21/2019 8:00 AM RESIDENTIAL HOUSEKEEPER Temperature 20 12/21/2019 8:00 AM RESIDENTIAL HOUSEKEEPER Respiratory Rate 98% 12/21/2019 8:00 AM RESIDENTIAL HOUSEKEEPER Oxygen Saturation - - Inhaled Oxygen Concentration 79.8 kg (176 lb) 12/19/2019 6:50 AM RESIDENTIAL HOUSEKEEPER Weight 165.1 cm (5' 5") 12/19/2019 6:50 AM RESIDENTIAL HOUSEKEEPER Height 29.29 12/19/2019 6:50 AM RESIDENTIAL HOUSEKEEPER Body Mass Index documented in this encounter Discharge Instructions * Attachments The following attachments cannot be sent through Care Everywhere.* Breastfeed, How to (Indonesian) * , After (Indonesian) * Human Papillomavirus Quadrivalent Vaccine suspension for injection (Indonesian) * Human Papillomavirus Quadrivalent Vaccine suspension for injection (Greenlandic) documented in this encounter Progress Notes * Niya Gil MD - 12/20/2019 6:18 AM RESIDENTIAL HOUSEKEEPER POST-OPERATIVE PROGRESS NOTE 12/20/2019 6:19 AM Subjective: Overnight patient had no complaints. Her pain is well controlled on oral pain medications. She is tolerating a regular diet. She has not passed fla tus. She is not ambulating without difficulty. Lochia is Scant. She is urinating without adame. Patient denies chest pain, SOB, n/v, headache, RUQ pain, vision changes, dizziness. Objective: VITALS: Patient Vitals for the past 24 hrs: BP Temp Temp src Pulse Resp SpO2 Height Weight 12/20/19 0400 118/68 36.7 C (98.1 F) Oral 88 20 99 % 12/20/19 0000 110/76 37.1 C (98.8 F) Oral 89 20 99 % 12/19/19 2029 102/72 36.9 C (98.4 F) Oral 80 20 98 % 12/19/19 1700 104/64 36.8 C (98.2 F) Oral 95 17 100 % 12/19/19 1403 106/67 36.9 C (98.4 F) Oral 76 17 100 % 12/19/19 1245 98/64 78 17 100 % 12/19/19 1215 102/64 65 17 100 % 12/19/19 1200 104/58 68 17 99 % 12/19/19 1145 100/66 67 17 100 % 12/19/19 1130 95/57 73 17 100 % 12/19/19 1115 95/53 70 14 100 % 12/19/19 1100 105/64 36.4 C (97.5 F) 75 16 100 % 12/19/19 0815 106/74 96 18 100 % 12/19/19 0650 115/76 36.7 C (98 F) Axillary 76 18 100 % 1.651 m (5' 5") 79.8 kg (176 lb) I/O: Intake/Output Summary (Last 24 hours) at 12/20/2019 0619 Last data filed at 12/20/2019 0400 Gross per 24 hour Intake 8125 ml Output 3125 ml Net 5000 ml PE: General: patient alert and in no acute distress Lungs: clear to auscultation bilaterally Cardiology: regular rate and rhythm, no murmur Abdomen: normal tenderness to palpation, soft, bowel sounds present. Fundus is f irm and at umbilicus Incision: Bandage is clean, dry, and intact, will require removal and incision c heck at 1015 Extremities: no clubbing, cyanosis, or edema : deferred MEDS: Current Facility-Administered Medications Medication Dose Route Frequency Last Rate Last Dose bisacodyL (DULCOLAX) suppository 10 mg 10 mg Rectal QDAILYPRN diphenhydrAMINE (BENADRYL) injection 25 mg 25 mg Slow IV Push Q4HPRN diphenhydrAMINE (BENADRYL) tablet 25 mg 25 mg Oral Q6HPRN diphenhydrAMINE (BENADRYL) tablet 25 mg 25 mg Oral Q4HPRN diphenhydrAMINE-0.9 % sod.chlr (BENADRYL) 25 mg/50 mL piggyback 25 mg 25 mg IV Piggyback Q6HPRN docusate calcium (SURFAK) capsule 240 mg 240 mg Oral QDAILYPRN human papillomav vac,9-key(PF) (GARDASIL-9) syringe 0.5 mL 0.5 mL Intramusc ular ONCE-PRIOR TO DISCHARGE HYDROcodone-acetaminophen (NORCO 5) 5-325 mg tablet 1 tablet 1 tablet Oral Q6HPRN 1 tablet at 12/19/19 1256 HYDROcodone-acetaminophen (NORCO 5) 5-325 mg tablet 2 tablet 2 tablet Oral Q6HPRN 2 tablet at 12/20/19 0302 magnesium hydroxide (MILK OF MAGNESIA) 400 mg/5 mL suspension 30 mL 30 mL O ral QDAILYPRN naloxone (NARCAN) injection 0.2 mg 0.2 mg Intramuscular Q3HPRN naloxone (NARCAN) injection 0.4 mg 0.4 mg Slow IV Push PRN - SEE INSTRUCTIO NS ondansetron (ZOFRAN (PF)) injection 4 mg 4 mg Slow IV Push Q8HPRN ondansetron (ZOFRAN (PF)) injection 4 mg 4 mg Slow IV Push [id number] rho(D) immune globulin (RHOGAM) syringe 300 mcg 300 mcg Intramuscular ONCE simethicone (GAS RELIEF (SIMETHICONE)) chewable tablet 160 mg 160 mg Oral P C+HSPRN 160 mg at 12/20/19 0302 LABS: WBC x10^3 (/uL) Date Value 02/06/2015 8.4 WBC (10*3/L) Date Value 12/20/2019 12.44 (H) 11/28/2019 8.57 HGB Date Value 12/20/2019 12.5 g/dL 11/28/2019 12.2 g/dL 02/06/2015 13.0 G/DL HCT (%) Date Value 12/20/2019 38.2 11/28/2019 38.6 02/06/2015 39.0 PLT x10^3 (/uL) Date Value 02/06/2015 229 PLT (10*3/L) Date Value 12/20/2019 156 (L) 11/28/2019 199 Assessment: Ally Ramos is a 29 year old POD#1 s/p primary LTCS on 12/19/19 at 1016 at 39w0d for beau breech presentation, uncomplicated. Patient i s recovering well: hemodynamically stable, good UOP, pain well-controlled, vital s within normal limits. Plan: Postoperative Review: - Admitted for: Primary section - Surgical procedure: Primary Lower uterine tranverse section with no e xtension - Skin incision: pfannenstiel - Closure: sutures - Estimated blood loss: 650 mL - Intraoperative Complications: none - Clinical trials: none - Urine output: ~150cc/hr past 5 hrs - Preop H/H: 12.2/38.6 - Postop H/H: 12.5/38.2 Right ovarian cyst - simple appearing noted on M scan from 08/2019 and 10/2019; measuring 3.01 x 2.43 x 2.12 cm - adnexal not visualized on last scan - Mass removal consent form not done during admission Antepartum course reviewed - 1 h 107, sero neg, RImm, VZVImm, O+/neg, GBS neg, Pap NIL 05/2019 Postoperative care: - Diet: Advance as tolerated - Fluid: Encourage oral intake - Activity: Encourage ambulation and incentive spirometry - Pain: [place] and Ibuprofen - DVT prophylaxis: SCDs and TEDs when not ambulating Discharge Planning - Contraception: OCPs - Vaccines: Gardasil - Follow up in 5-7 days for incision check and/or staple removal at [facility] - [facility] Dispo: Anticipate discharge POD2 Baby's Status - APGARs 8,8 - Weight: 3230 g - Location: bedside Dispo: Patient is POD#1 s/p PCS, will be 24hr @1016 and require dressing removal /incision check. Patient is doing well with no complaints. Needs to meet the [facility] milestones before discharge: incision check, flatus, ambulation. Anticipa te discharge POD2. Will require Gardasil before discharge. Niya Gil MD DENTIAL HOUSEKEEPER Associated attestation - Apolinar Ceron MD - 12/20/2019 11:42 AM RESIDENTIAL HOUSEKEEPER I have seen and evaluated on 12/20/19 the patient thereby confirming the johnson po rtions of the history and physical examination. I discussed the case with the r sameerdent and agree with the findings and plan as documented in the resident note. Patient Active Problem List Diagnosis Bicornuate uterus High-risk in third trimester Gallstones Breech presentation 39 weeks gestation of Apolinar Ceron MD * Ange Do - 12/18/2019 12:57 PM RESIDENTIAL HOUSEKEEPER HISTORY & PHYSICAL IDENTIFYING DATA Ally Ramos is 29 year old, /White, 39w0d, fem juanito with KWABENA 12/26/2019, by Ultrasound. : 1990 Primary Care Physician: Viviana Wayne Hospital Day: 1 CHIEF COMPLAINT Scheduled primary section HISTORY OF PRESENT ILLNESS Ally Ramos is a 29 year old at 39w0d who presents for scheduled primary section secondary to breech presentation. complicated by bicornuate uterus and right ovarian cyst. PAST OBSTETRIC HISTORY OB History Para Term AB Living 2 1 1 1 SAB TAB Ectopic Multiple Live Births 1 # Outcome Date GA Lbr Suresh/2nd Weight Sex Delivery Anes PTL Lv 2 Current 1 Term 09/22/15 39w0d 3640 g M NORMAL SPONT EPI N CINDY Complications: Retained placenta PAST MEDICAL HISTORY Problem list: Patient Active Problem List Diagnosis Date Noted 39 weeks gestation of 12/19/2019 Breech presentation 11/12/2019 Gallstones 08/21/2019 High-risk in third trimester 07/18/2019 Bicornuate uterus 09/22/2015 Operations: No past surgical history on file. Prior surgeries at outside hospitals: none Past Medical History: Diagnosis Date Migraines 9 years last episode 4 months ago use tylenol Reflux gastritis 2012 Use antacids CURRENT HEALTH STATUS Medications: Current Facility-Administered Medications Medication Dose Route Frequency Last Rate Last Dose acetaminophen (TYLENOL) tablet 650 mg 650 mg Oral ONCE ceFAZolin in dextrose (iso-os) (ANCEF) 2 gram/100 mL Piggyback 2 g 2,000 mg IV Piggyback O.R. HOLDING ONCE lactated ringers IV infusion 1,000 mL 1,000 mL IV Infusion CONTINUOUS 125 m L/hr at 12/19/19 0742 1,000 mL at 12/19/19 0742 lactated ringers IV infusion 500 mL 500 mL IV Infusion ONCE sodium citrate-citric acid (BICITRA) 500-334 mg/5 mL solution 30 mL 30 mL O ral PRE-PROCEDURE ONCE Allergies and drug reactions: Asa [aspirin] HOME MEDICATIONS Medications Prior to Admission Medication Sig Dispense Refill Last Dose PNV 67-iron ps-folate no.1-dha (VITAFOL ULTRA) 29 mg iron- 1 mg-200 mg Cap T hans 1 capsule by mouth daily. 60 capsule 6 SOCIAL HISTORY Tobacco History: Social History Tobacco Use Smoking Status Never Smoker Smokeless Tobacco Never Used Drug History: Social History Substance and Sexual Activity Drug Use No Alcohol History: Social History Substance and Sexual Activity Alcohol Use No Alcohol/week: 0.0 standard drinks FAMILY HISTORY Family History Problem Relation Age of Onset Other - see comments Father Liver Diabetes Paternal Aunt No Significant Medical Problems Mother No Significant Medical Problems Sister No Significant Medical Problems Brother No Significant Medical Problems Maternal Aunt No Significant Medical Problems Maternal Uncle No Significant Medical Problems Paternal Uncle No Significant Medical Problems Maternal Grandmother No Significant Medical Problems Maternal Grandfather No Significant Medical Problems Paternal Grandmother No Significant Medical Problems Paternal Grandfather REVIEW OF SYSTEMS General: negative Constitutional: negative Eyes: negative ENT/Mouth: negative Cardiovascular: negative Respiratory: negative Gastrointestinal:negative Genitourinary: negative Musculoskeletal: negative Skin/breast: negative Neurological: negative Psychiatric: negative Endocrine: negative Hemat/Lymph: negative Allergic/Immuno:none VITAL SIGNS BP: (115)/(76) Temp: [36.7 C (98 F)] Temp source: Axillary (12/19 0650) Pulse: [76] Resp: [18] SpO2: [100 %] Height: [165.1 cm (5' 5")] Weight: [79.8 kg (176 lb)] BMI (calculated): [29.29] PHYSICAL EXAMINATIONS General: well-developed, well-nourished Cardiology: regular rate and rhythm Abdomen: fundal height - size equals dates Extremities: no clubbing, cyanosis, or edema Skin: no rashes REVIEW OF LABORATORY, PATHOLOGY, AND RADIOLOGY DATA Lab results: CBC BMP PT/INR WBC x10^3 (/uL) Date Value 02/06/2015 8.4 WBC (10*3/L) Date Value 11/28/2019 8.57 No results found for: NA No results found for: PT RBC x10^6 (/uL) Date Value 02/06/2015 4.70 RBC (10*6/L) Date Value 11/28/2019 4.31 No results found for: K No results found for: PTINR PLT x10^3 (/uL) Date Value 02/06/2015 229 PLT (10*3/L) Date Value 11/28/2019 199 No results found for: CA HGB Date Value 11/28/2019 12.2 g/dL 02/06/2015 13.0 G/DL No results found for: CL aPTT HCT (%) Date Value 11/28/2019 38.6 02/06/2015 39.0 No results found for: BUN No results found for: APTTPAT No results found for: CREAT No results found for: GLU No results found for: TCO2 Type & Screen Rubella Varicella ABO & RH (no units) Date Value 05/21/2019 O POSITIVE RUBELLA (no units) Date Value 02/06/2015 POSITIVE Rubella screen IgG (no units) Date Value 05/21/2019 Positive VZV IgG (no units) Date Value 02/06/2015 POSITIVE (A) No results found for: TSABINT Hep B HIV Syphilis HBsAg (no units) Date Value 02/06/2015 NEGATIVE HIV 1/2 Ab (no units) Date Value 02/06/2015 NEGATIVE SYPH IgG/IgM (no units) Date Value 02/06/2015 Non Reac Group B Strep Chlamydia No results found for: CGBS Chlamydia Amplified Assay (no units) Date Value 02/06/2015 NEGATIVE C. trachomatis Nucleic Acid (no units) Date Value 05/21/2019 Negative HEART RATE Baseline 140, moderate variability, + accelerations, -decelerations ASSESSMENT AND PLAN Ally Ramos is a 29 year old at 39w0d who presents for scheduled PCS for breech presentation. Breech presentation - breech presentation on last MFM scan from 11/28; not a candidate for ECV due to bicornuate uterus - posterior placenta - Hgb 12.2, Plt 199 on 11/28/18 - There is no height or weight on file to calculate BMI. - Will proceed with Right ovarian cyst - simple appearing noted on MFM scan from 08/2019 and 10/2019; measuring 3.01 x 2.43 x 2.12 cm - adnexal not visualized on last scan - Mass removal consent form? Antepartum course reviewed - 1 h 107, sero neg, RImm, VZVImm, O+/neg, GBS neg, Pap NIL 05/2019 - Juan J SHAH Fetus - Presentation: beau breech - NST: baseline 140, moderate variability, +accelerations, -decelerations - Normal anatomy scan Ange Do MD DENTIAL HOUSEKEEPER Associated attestation - Aziza Arizmendi MD - 12/20/2019 3:36 PM RESIDENTIAL HOUSEKEEPER Present and participated in the decision making, assessment and plan for admissi on and delivery documented in this encounter Plan of Treatment Care Team Description Date Type Specialty 1, Pas-Rmchp Jovan Rodríguez 12/26/2019 [place] [address] [address] [place] [address] [phone] 01/09/2020 Routine OB Satellites Visit Health Maintenance Due Date Last Done Comments PAP SMEAR 05/21/2022 05/21/2019, 015 DTaP,Tdap,and Td Vaccines 10/26/2029 10/26/2019, 07/03/2015 (3 - Td) INFLUENZA VACCINE Completed 09/27/2019, 015 PNEUMOCOCCAL 0-64 YEARS Aged Out No longer elig ible based COMBINED SERIES on patient's age to complete this topic documented as of this encounter Procedures Comments Procedure Name Priority Date/Time Associated Diag nosis PROFILE / HEMOGRAM STAT 12/20/2019 1:31 PM RESIDENTIAL HOUSEKEEPER CBC WITH DIFFERENTIAL Routine 12/20/2019 2:45 AM RESIDENTIAL HOUSEKEEPER CBC WITH DIFFERENTIAL Routine 12/20/2019 2:45 AM RESIDENTIAL HOUSEKEEPER VENOUS CORD GAS ANIYAH 12/19/2019 10:23 AM RESIDENTIAL HOUSEKEEPER ARTERIAL CORD GAS ANIYAH 12/19/2019 10:23 AM RESIDENTIAL HOUSEKEEPER SECTION 12/19/2019 s/p primary for gaurav ech 9:19 AM RESIDENTIAL HOUSEKEEPER RHO (D) IMMUNE GLOBULIN Routine 12/19/2019 7:43 AM RESIDENTIAL HOUSEKEEPER HB ABO GROUPING Routine 12/19/2019 7:43 AM RESIDENTIAL HOUSEKEEPER GALV ONLY - SYPHILIS ANIYAH 12/19/2019 IGG/IGM 7:41 AM RESIDENTIAL HOUSEKEEPER HEPATITIS B SURFACE ANIYAH 12/19/2019 ANTIGEN 7:41 AM RESIDENTIAL HOUSEKEEPER documented in this encounter Results * PROFILE / HEMOGRAM (12/20/2019 1:31 PM RESIDENTIAL HOUSEKEEPER) WBC 14.04 (H) 4.30 - 11.10 [facility] 10*3/L SERVICES RBC 4.26 3.93 - 5.25 10*6/L [facility] HGB 11.9 11.6 - 15.0 g/dL [facility] HCT 36.7 35.7 - 45.2 % [facility] MCH 27.9 25.9 - 32.8 pg [facility] MCV 86.2 80.6 - 95.5 fL [facility] MCHC 32.4 31.6 - 35.1 g/dL [facility] PLT 174 166 - 358 10*3/L [facility] MPV 10.2 9.5 - 12.9 fL [facility] RDW-CV 13.9 12.0 - 15.5 % [facility] RDW-SD 42.8 39.0 - 49.9 fL [facility] NRBC x10^3 <0.01 10*3/L [facility] NRBC/100 WBC 0.0 0.0 - 10.0 /100 WBCs [facility] IPF % [facility] Specimen Blood - ARM, RIGHT Performing Organization Address City/State/Zipcode Ph one Number [facility] CLIA: [id number], [address] [place] [address] [facility] * CBC WITH DIFFERENTIAL (12/20/2019 2:45 AM RESIDENTIAL HOUSEKEEPER) WBC 12.44 (H) 4.30 - 11.10 [facility] 10*3/L SERVICES RBC 4.45 3.93 - 5.25 10*6/L [facility] HGB 12.5 11.6 - 15.0 g/dL [facility] HCT 38.2 35.7 - 45.2 % [facility] MCV 85.8 80.6 - 95.5 fL [facility] MCH 28.1 25.9 - 32.8 pg [facility] MCHC 32.7 31.6 - 35.1 g/dL [facility] RDW-SD 42.4 39.0 - 49.9 fL [facility] RDW-CV 13.8 12.0 - 15.5 % [facility] PLT 156 (L) 166 - 358 10*3/L [facility] MPV 10.1 9.5 - 12.9 fL [facility] NRBC/100 WBC 0.0 0.0 - 10.0 /100 WBCs [facility] NRBC x10^3 <0.01 10*3/L [facility] GRAN MAT (NEUT) 79.2 % [facility] % SERVICES IMM GRAN % 0.60 % [facility] LYMPH % 9.2 % [facility] MONO % 10.0 % [facility] EOS % 0.7 % [facility] BASO % 0.3 % [facility] GRAN MAT 9.84 (H) 1.88 - 7.09 10*3/uL [facility] x10^3(ANC) SERVICES IMM GRAN x10^3 0.08 (H) 0.00 - 0.06 10*3/uL [facility] LYMPH x10^3 1.15 (L) 1.32 - 3.29 10*3/uL [facility] MONO x10^3 1.24 (H) 0.33 - 0.92 10*3/uL [facility] EOS x10^3 0.09 0.03 - 0.39 10*3/uL [facility] BASO x10^3 0.04 0.01 - 0.07 10*3/uL [facility] Specimen Blood - ARM, LEFT Performing Organization Address [facility] one Number [facility] CLIA: [id number], [address] [place] [address] [facility] * Venous Cord Gas (12/19/2019 10:23 AM RESIDENTIAL HOUSEKEEPER) VENOUS BASE -2.1 mEq/L [facility] EXCESS, CORD SERVICES VENOUS PH, CORD 7.39 7.25 - 7.45 [facility] Y SERVICES VENOUS PC02, 38 27 - 49 mmHg [facility] CORD SERVICES VENOUS PO2, 39 17 - 41 mmHg [facility] CORD SERVICES VENOUS 22 12 - 29 mEq/L [facility] BICARBONATE, SERVICES CORD Specimen Blood - CORD Performing Organization Address [facility] one Number [facility] CLIA: [id number], [address] [place] [address] [facility] * Arterial Cord Gas (12/19/2019 10:23 AM RESIDENTIAL HOUSEKEEPER) BASE EXCESS, -2.6 mEq/L [facility] CORD SERVICES AC PH, CORD 7.30 7.18 - 7.38 [facility] (BEAKER) SERVICES PC02, CORD 50 32 - 66 mmHg [facility] PO2, CORD 15 10 - 30 mmHg [facility] SERVICES BICARBONATE, 24 17 - 27 mEq/L [facility] LABORATORY CORD SERVICES Specimen Blood - CORD Performing Organization Address [facility] one Number [facility] LABORATORY SERVICES CLIA: [id number], [address] [place] [address] [facility] * RHO (D) IMMUNE GLOBULIN (12/19/2019 7:43 AM RESIDENTIAL HOUSEKEEPER) Pathologist [facility] RHIG CANDIDATE? No- see comment LAB Comment: Patient is not a candidate for RhIg- Patient is Rh Positive. Performed at [facility] Laboratory Services - [facility] Blood [place] [address] Toll Free: [phone] CLIA No. [id number] Specimen Blood Performing Organization Address City/[facility] one Number [facility] LAB * Type and Screen - ONCE Routine (12/19/2019 7:43 AM RESIDENTIAL HOUSEKEEPER) Pathologist [facility] ABO & RH O POSITIVE LAB Comment: Performed at [facility] Laboratory Services - [facility] Blood [place] [address] Toll Free: [phone] CLIA No. [id number] IAT Negative LAB Comment: Performed at [facility] Laboratory Services - [facility] Blood [place] [address] Toll Free: [phone] CLIA No. [id number] Specimen Blood Performing Organization Address [facility] one Number D LAB * GALV ONLY - SYPHILIS IGG/IGM (12/19/2019 7:41 AM RESIDENTIAL HOUSEKEEPER) Pathologist [facility] Syphilis Non-reactive Non-reactive [facility] IgG/IgM SERVICES Specimen Blood - VENOUS Narrative Performed At Non-reactive - No serologic evidence of T. pallidum i nfection. Cannot exclude [facility] incubating or early syphilis. Submit a second specimen in 2-4 weeks if syphilis SERVICES is clinically suspected. Equivocal - Further testing to follow. Reactive - Further testing to follow. Performing Organization Address City/[facility] one Number [facility]ORY SERVICES CLIA: [id number], [address] [place] [address] [facility] * Hepatitis B Surface Antigen (12/19/2019 7:41 AM RESIDENTIAL HOUSEKEEPER) Pathologist [facility] HBsAg Negative Negative [facility] SERVICES HBsAg 0.21 [facility] Semi-Quantitati SERVICES ve Specimen Blood - VENOUS Performing Organization Address City/[facility] Ph one Number [facility] SERVICES CLIA: [id number], [address] [place] [address] documented in this encounter Visit Diagnoses Diagnosis S/P section - Primary Other postprocedural status 39 weeks gestation of state, incidental documented in this encounter Administered Medications Action Date Dose Rate Site Medication Order BANNER Action diphenhydrAMINE (BENADRYL) tablet 25 mg 25 mg, Oral, Q4HPRN, Starting Tue12/19/19 at 1012, Until Discontinued, Routine, Itching, PACU 12/21/2019 7:51 AM RESIDENTIAL HOUSEKEEPER 240 mg docusate calcium (SURFAK) capsule 240 mg Given 240 mg, Oral, QDAILYPRN, Starting Tue12/19/19 at 1353, Until Discontinued, Routine, Constipation 12/19/2019 12:56 PM RESIDENTIAL HOUSEKEEPER 1 tablet HYDROcodone-acetaminophen (NORCO 5) Given 5-325 mg tablet 1 tablet 1 tablet, Oral, Q6HPRN, Starting Tue12/19/19 at 1012, Until Discontinued, Routine, Pain (scale 4-6), PACU 12/21/2019 4:44 AM RESIDENTIAL HOUSEKEEPER 2 tablets HYDROcodone-acetaminophen (NORCO 5) Given 5-325 mg tablet 2 tablet 2 tablet, Oral, Q6HPRN, Starting Tue12/19/19 at 1353, Until Discontinued, Routine, Pain (scale 7-10) 2 tablets Given 12/20/2019 8:08 PM RESIDENTIAL HOUSEKEEPER 2 tablets Given 12/20/2019 10:57 AM RESIDENTIAL HOUSEKEEPER naloxone (NARCAN) injection 0.2 mg 0.2 mg, Intramuscular, Q3HPRN, Starting Tue12/19/19 at 1012, Until Discontinued , Routine, Itching, PACU 12/20/2019 3:02 AM RESIDENTIAL HOUSEKEEPER 160 mg simethicone (GAS RELIEF (SIMETHICONE)) Given chewable tablet 160 mg 160 mg, Oral, PC+HSPRN, Starting Tue12/19/19 at 1353, Until Discontinued, Routine, Gas Action Date Dose Rate Site Medication Order BANNER Action 12/19/2019 8:18 AM RESIDENTIAL HOUSEKEEPER 650 mg acetaminophen (TYLENOL) tablet 650 mg Given 650 mg, Oral, ONCE, 1 dose, Tue12/19/19 at 0745, Routine 12/19/2019 9:20 AM RESIDENTIAL HOUSEKEEPER 2 g ceFAZolin in dextrose (iso-os) (ANCEF) 2 Given gram/100 mL Piggyback 2 g 2 g (2,000 mg), IV Piggyback, O.R. HOLDING ONCE, 1 dose, Starting Tue12/19/19 at 0736, Until Tue12/19/19 at 0920, 100 mL, Reason for Anti-Infective : Surgical Prophylaxis, Surgical Prophylaxis: AUTO GARAGE ATTENDANT, Duration of therapy: within 24 hours of surgery 12/21/2019 11:32 AM RESIDENTIAL HOUSEKEEPER 0.5 mL Left Del toid-IM human papillomav vac,9-key(PF) Given (GARDASIL-9) syringe 0.5 mL 0.5 mL, Intramuscular, ONCE-PRIOR TO DISCHARGE, 1 dose, Starting Tue12/19/19 at 1353, Until Tue12/21/19 at 1132, Routine, Give vaccine prior to discharg e 12/19/2019 10:46 AM RESIDENTIAL HOUSEKEEPER lactated ringers IV infusion 1,000 mL New Bag at 125 mL/hr, 1,000 mL, IV Infusion, CONTINUOUS, Starting Tue12/19/19 at 0745, Until Tue12/19/19 at 1353, Routin e New Bag 12/19/2019 9:32 AM RESIDENTIAL HOUSEKEEPER 1,000 mL 125 mL/hr New Bag 12/19/2019 7:42 AM RESIDENTIAL HOUSEKEEPER 12/19/2019 3:02 PM RESIDENTIAL HOUSEKEEPER 125 mL/hr LR 1000 mL + oxytocin 20 units IV Given Solution at 125 mL/hr, IV Infusion, ONCE, 1 dose , Tue12/19/19 at 1400, ANIYAH 12/19/2019 9:19 AM RESIDENTIAL HOUSEKEEPER 30 mL sodium citrate-citric acid (BICITRA) Given 500-334 mg/5 mL solution 30 mL 30 mL, Oral, PRE-PROCEDURE ONCE, 1 dose , Starting Tue12/19/19 at 0736, Until Tue12/19/19 at 0919, Routine, Surgery/Procedure documented in this encounter Insurance Type Payer Benefit Subscriber ID Effective Phone Address Plan / Dates Group Pending MEDICAID PENDING CHIP FELA PENDING 2019- [phone] [place], [place] [phone] documented as of this encounter
--- OUTSIDE RECORDS SUMMARY | 2020-04-04 19:38 | XMS REPORT | Summary of Care ---
Author Author [facility] - Health Organization [facility] - Health Address Unknown Phone Unavailable Care Team Providers Care Forklift Driver Name Role Phone Yeny Nguyen CNM PCP Reason for Visit * Reason Comments ULTRASOUND * (Routine) Referred By Contact Referred To Contact Status Reason Specialty Diagnoses / Procedures Yeny Nguyen CNM [address] [place] [address] Closed Maternal Diagnoses Medicine High-risk in first trimester P rocedures CONSULT MATERNAL MEDICINE ULTRASOUND Preferred Location: [place] Encounter Details Care Team Description Date Type Department Aziza Arizmendi [id number] [place] [address] Encounter for screening for un certain dates; Uterine size-date discrepancy in first trimester 06/11/2019 Industrial Green Systems Designer [facility] Visit Ultrasound- [place] [address] [place] [address] Allergies Comments Active Allergy Reactions Severity Noted Date Was a child Aspirin Swelling 01/28/2015 documented as of this encounter (statuses as of 06/11/2019) Medications No known medicationsdocumented as of this encounter (statuses as of 06/11/2019) Active Problems Problem Noted Date Insertion of implantable subdermal contraceptive Overview: 01/21/16 Implant placed Encounter for removal of intrauterine contraceptive d evice 01/05/2016 Overview: 01/05/16 removal IUD Surveillance of previously prescribed intrauterine co ntraceptive device 12/30/2015 Overview: 12/30/15 IUD check 01/05/16 IUD removal, advised no IUD for contraception d/t abnormal uterus Contraception 11/13/2015 Overview: 01/05/16 IUD removed Encounter for insertion of intrauterine contraceptive device 11/13/2015 Family planning counseling 11/13/2015 General counseling and advice for contraceptive manag ement 10/14/2015 Bicornuate uterus 09/22/2015 Estimated Date of Delivery Comments Yes 01/03/2020 Based on last menst rual period of 03/29/2019 documented as of this encounter (statuses as of 06/11/2019) Resolved Problems Problem Noted Date Resolved Date care and examination of lactating mother 201411/13/2015 Third degree laceration of perineum, type 3a [...] started earlier at the provider s discretion). [email or web address] Page r [phone] Supervision of other high-risk , third trimester [...] as of this encounter (statuses as of 06/11/2019) Immunizations Name Administration Dates Next Due Influenza Virus Vaccine 08/19/2015 Quad IM 3+ YRS PPD (TB) 03/10/2015 Tdap 07/03/2015 documented as of this encounter Social History Date Tobacco Use Types Packs/Day Years Used Never Smoker Smokeless Tobacco: Never Used Drinks/Week oz/Week Comments Alcohol Use 0 Standard drinks or equivalent 0.0 No Estimated Date of Delivery Comments Yes 01/03/2020 Based on last menst rual period of 03/29/2019 Sex Assigned at Date Recorded Not on file Industry Job Start Date Occupation Not on file Not on file Not on file Travel End Travel History Travel Start No recent travel history available. documented as of this encounter Last Filed Vital Signs Not on filedocumented in this encounter Plan of Treatment Care Team Description [place] [address] [facility] [address] [place], [place] [address] 06/19/2019 Routine OB Satellites Visit Health Maintenance Due Date Last Done Comments VARICELLA VACCINES (1 of 2002 2 - 13+ 2-dose series) INFLUENZA VACCINE 07/08/2019 08/19/2015 PAP SMEAR 05/21/2022 05/21/2019, 015 DTaP,Tdap,and Td Vaccines 07/03/2025 07/03/2015 (2 - Td) PNEUMOCOCCAL 0-64 YEARS Aged Out No longer elig ible based COMBINED SERIES on patient's age to complete this topic documented as of this encounter Results Not on filedocumented in this encounter Visit Diagnoses Diagnosis Encounter for screening for u ncertain dates Uterine size-date discrepancy in first trimester Uterine size date discrepancy, antepart um condition or complication documented in this encounter Insurance Type Payer Benefit Subscriber ID Effective Phone Address Plan / Dates Group Agency [facility] TITLE V [facility] TITLE V [id number] 2019- [address]% [place] [phone] documented as of this encounter
--- OUTSIDE RECORDS SUMMARY | 2020-04-04 19:38 | XMS REPORT | Summary of Care ---
Author Author [facility] - Health Organization [facility] - Health Address Unknown Phone Unavailable Care Team Providers Care Title Insurance Sales Representative Name Role Phone Yeny Nguyen CNM PCP Reason for Visit * Reason Comments Care Encounter Details Care Team Description Date Type Department Yeny Nguyen CNM [address] [place] [address] High-risk in first trimester ( Primary Dx); Bicornuate uterus 06/19/2019 Routine [facility] Visit [facility] [address] [place] [address] Allergies Comments Active Allergy Reactions Severity Noted Date Was a child Aspirin Swelling 01/28/2015 documented as of this encounter (statuses as of 06/20/2019) Medications No known medicationsdocumented as of this encounter (statuses as of 06/20/2019) Active Problems Problem Noted Date Insertion of [...] 09/22/2015 Estimated Date of Delivery Comments Yes 12/26/2019 Based on Ultrasound , FHT 161; posterior placenta documented as of this encounter (statuses as of 06/20/2019) Resolved Problems Problem Noted Date Resolved Date [...] started earlier at the provider s discretion). [email or web address] Page r [phone] Supervision of other high-risk , third trimester [...] as of this encounter (statuses as of 06/20/2019) Immunizations Name Administration Dates Next Due Influenza Virus Vaccine 08/19/2015 Quad IM 3+ YRS PPD (TB) 03/10/2015 Tdap 07/03/2015 documented as of this encounter Social History Date Tobacco Use Types Packs/Day Years Used Never Smoker Smokeless Tobacco: Never Used Drinks/Week oz/Week Comments Alcohol Use 0 Standard drinks or equivalent 0.0 No Estimated Date of Delivery Comments Yes 12/26/2019 Based on Ultrasound , FHT 161; posterior placenta Sex Assigned at Date Recorded Not on file Industry Job Start Date Occupation Not on file Not on file Not on file Travel End Travel History Travel Start No recent travel history available. documented as of this encounter Last Filed Vital Signs Reading Time Taken Comments Vital Sign 104/68 06/19/2019 3:39 PM CDT Blood Pressure 68 06/19/2019 3:39 PM CDT Pulse 36.8 C (98.2 F) 06/19/2019 3:39 PM CDT Temperature 20 06/19/2019 3:39 PM CDT Respiratory Rate - - Oxygen Saturation - - Inhaled Oxygen Concentration 77.8 kg (171 lb 9.6 oz) 06/19/2019 3:39 PM CDT Weight 165.1 cm (5' 5") 06/19/2019 3:39 PM CDT Height 28.56 06/19/2019 3:39 PM CDT Body Mass Index documented in this encounter Progress Notes * Yeny Nguyen CNM - 06/19/2019 3:30 PM CDT Chief complaint: Chief Complaint Patient presents with Care CC: Follow Up Visit Ally Ramos is a 28 year old, , /White female. Patient's last menstrual period was 03/29/2019. She is 11w5d with an intrauteri ne . Her estimated date of delivery is 01/03/2020, by Last Menstrual Pe riod. She denies nausea, vomiting, cramping, and vaginal bleeding. She has no complaints today. Histories OB History Para Term AB Living 2 1 1 1 SAB TAB Ectopic Multiple Live Births 1 # Outcome Date GA Lbr Suresh/2nd Weight Sex Delivery Anes PTL Lv 2 Current 1 Term 09/22/15 39w0d 8 lb 0.4 oz (3.64 kg) M NORMAL SPONT EPI N CINDY Complications: Retained placenta Past Medical History: Diagnosis Date Migraines 9 years last episode 4 months ago use tylenol Reflux gastritis 2013 Use antacids Family History Problem Relation Age of Onset [...] Grandmother No Significant Medical Problems Paternal Grandfather Family Status Relation Name Status Fa PAunt Alive Mo Alive Sis Alive Bro Alive MAunt Alive MUnc Alive PUnc Alive MGMo Alive MGFa Alive PGMo PGFa No past surgical history on file. Social History Socioeconomic History Marital status: Single Spouse name: Alonzo Lakhani Number of children: 1 Years of education: Not on file Highest education level: Not on file Occupational History Occupation: none Social Needs Financial resource strain: Not on file Food insecurity: Worry: Not on file Inability: Not on file Transportation needs: Medical: Not on file Non-medical: Not on file Tobacco Use Smoking status: Never Smoker Smokeless tobacco: Never Used Substance and Sexual Activity Alcohol use: No Alcohol/week: 0.0 oz Drug use: No Sexual activity: Yes Partners: Male control/protection: None Comment: last intercourse 05/18/19 Lifestyle Physical activity: Days per week: Not on file Minutes per session: Not on file Stress: Not on file Relationships Social connections: Talks on phone: Not on file Gets together: Not on file Attends anabaptist service: Not on file Active member of club or organization: Not on file Attends meetings of clubs or organizations: Not on file Relationship status: Not on file Intimate partner violence: Fear of current or ex partner: Not on file Emotionally abused: Not on file Physically abused: Not on file Forced sexual activity: Not on file Other Topics Concern Not on file Social History Narrative Denies any form of abuse/domestic violence. Lives and son, no pets. Social History Substance and Sexual Activity Sexual Activity Yes Partners: Male control/protection: None Comment: last intercourse 05/18/19 Labs No new labs Radiology No new radiology. Allergies Ally is allergic to asa [aspirin]. Medications Ally currently has no medications in their medication list. Review of Systems Constitutional: Negative. Negative for appetite change, fever and unexpected we ight change. HENT: Negative. Negative for congestion, facial swelling, rhinorrhea and sore t hroat. Eyes: Negative. Negative for visual disturbance. Respiratory: Negative. Breasts: Negative. Cardiovascular: Negative. Negative for palpitations and leg swelling. Gastrointestinal: Negative. Negative for abdominal pain, constipation, diarrhea , nausea and vomiting. Genitourinary: Negative. Negative for bladder incontinence, dysuria, flank pain , vaginal bleeding, vaginal discharge, difficulty urinating, genital sores, vagi nal pain and pelvic pain. Musculoskeletal: Negative. Skin: Negative. Neurological: Negative. Negative for syncope, light-headedness, numbness and he adaches. Psychiatric/Behavioral: Negative. Negative for dysphoric mood, self-injury and suicidal ideas. The patient is not nervous/anxious. Endocrine: Endocrine negative BP 104/68 | Pulse 68 | Temp 36.8 C (98.2 F) (Tympanic) | Resp 20 | Ht 5' 5" (1.651 m) | Wt 171 lb 9.6 oz (77.8 kg) | LMP 03/29/2019 | BMI 28.56 kg/m Pregravid BMI: Could not be calculated Physical Exam Vitals reviewed. Constitutional: She is oriented to person, place, and time. She appears well-dev eloped, well-nourished and well-groomed. Cardiovascular: No peripheral edema present. Pulmonary/Chest: Normal inspiratory effort. Abdominal: No tenderness present. There is no rigidity and no guarding. Neuro/Psychiatric: She has a normal mood and affect. She is oriented to person, place, and time. Skin: Skin normal. PHYSICAL: General Exam: Lungs: Normal Abdomen: Normal Gravid, nontender Skin: Normal Extremities: Normal Pelvic Exam: Membrane status: Intact Assessment/Plan High-risk in first trimester (primary encounter diagnosis) Comment: 12wd Plan: RTC in 4w Bicornuate uterus Comment: Plan: continue poc This visit did not involve counseling and coordination that comprised more than 50% of the visit time. documented in this encounter Plan of Treatment Care Team Description Date Type Specialty Yeny Nguyen CNM [address] [place] [address] [phone] 07/18/2019 Routine OB Satellites Visit Health Maintenance Due [...] filedocumented in this encounter Visit Diagnoses Diagnosis High-risk in first trimester - Primary Bicornuate uterus documented in this encounter Insurance Type Payer Benefit Subscriber ID Effective Phone Address Plan / Dates Group CHIP Mylene CHIP MYLENE [employer] [id number] 2019- [address] CHIP Present [id number] [phone] [place] [address] [facility] TITLE V [facility] TITLE V [id number] 2019- [address]100% [place] [phone] documented as of this encounter
--- OUTSIDE RECORDS SUMMARY | 2020-04-04 19:38 | XMS REPORT | Summary of Care ---
Author Author [facility] - Health Organization [facility] - Health Address Unknown Phone Unavailable Care Team Providers Care Surgical Nurse Practitioner Name Role Phone Viviana Wayne CNM PCP Reason for Visit * Reason Comments NURSE VISIT staple removal * (Routine) Referred By Contact Referred To Contact Status Reason Specialty Diagnoses / Procedures Charly Jules MD [address] [facility] [id number] [place] [address] New Request OB Satellites Diagnoses S/P section P rocedures DISCHARGE FOLLOW-UP: [facility] Encounter Details Care Team Description Date Type Department Viviana Wayne CNM [address] [place] [address] [facility] Encounter for post surgical wound check (Primary Dx) 12/26/2019 Nurse Visit [facility] [address] [place] [address] Allergies Comments Active Allergy Reactions Severity Noted Date Was a child Aspirin Swelling 01/28/2015 documented as of this encounter (statuses as of 12/26/2019) Medications End Date Status Medication Sig Dispensed [...] hours as needed for Pain (scale 4-6). documented as of this encounter (statuses as of 12/26/2019) Active Problems Problem Noted Date 39 weeks gestation of 12/19/2019 Breech presentation 11/12/2019 Gallstones 08/21/2019 High-risk in third trimester 07/18/2019 Bicornuate uterus 09/22/2015 documented as of this encounter (statuses as of 12/26/2019) Resolved Problems Problem Noted Date Resolved Date [...] started earlier at the provider s discretion). [email or web address] Page r [phone] Supervision of other high-risk , third trimester [...] as of this encounter (statuses as of 12/26/2019) Immunizations Name Administration Dates Next Due HPV9 [...] 0 Standard drinks or equivalent 0.0 No Sex Assigned at Date Recorded Not on file Industry Job Start Date Occupation Not on file Not on file Not on file Travel End Travel History Travel Start No recent travel history available. documented as of this encounter Last Filed Vital Signs Reading Time Taken Comments Vital Sign 102/67 12/26/2019 10:25 AM REGISTRAR ASSISTANT Blood Pressure 70 12/26/2019 10:25 AM REGISTRAR ASSISTANT Pulse 36.8 C (98.3 F) 12/26/2019 10:25 AM REGISTRAR ASSISTANT Temperature 20 12/26/2019 10:25 AM REGISTRAR ASSISTANT Respiratory Rate - - Oxygen Saturation - - Inhaled Oxygen Concentration 72.6 kg (160 lb) 12/26/2019 10:25 AM REGISTRAR ASSISTANT Weight 167.6 cm (5' 6") 12/26/2019 10:25 AM REGISTRAR ASSISTANT Height 25.82 12/26/2019 10:25 AM REGISTRAR ASSISTANT Body Mass Index documented in this encounter Progress Notes * Alana [place] LVN - 12/26/2019 10:00 AM REGISTRAR ASSISTANT Ally Ramos is a 29 year old female Patient in clinic for staple removal. Delivered girl by 12/19/19. She is breast feeding. She denies depression/suicidal/homocial ideation, not con stipated and is drinking 12 bottles water daily, last BM yesterday. States has help at home and denies any domestic violence. LT incision well approximated and intact/no superficial wound separation. No ss of infection, induration or wound opening noted. Skin cleansed via aseptic technique, steri strips removed w/o any difficulty. ER warnings discussed, she voiced understanding and agrees with plan. STRAR ASSISTANT documented in this encounter Plan of Treatment Care Team Description Date Type Specialty Yeny Nguyen CNM [address] [place] [address] [phone] 01/09/2020 Routine OB Satellites Visit Health Maintenance [...] this encounter Visit Diagnoses Diagnosis Encounter for post surgical wound check - Primary documented in this encounter Insurance Type Payer Benefit Subscriber ID Effective Phone Address Plan / Dates Group CHIP Mylene CHIP MYLENE [facility] [id number] 2019-[address] [facility] [id number] [facility] [id number] CH[address]LEN[phone] [id number] [phone] documented as of this encounter
--- OUTSIDE RECORDS SUMMARY | 2020-04-04 19:38 | XMS REPORT | Summary of Care ---
Author Author [facility] - Health Organization [facility] - Health Address Unknown Phone Unavailable Care Team Providers Care [place] Machine Operator Name Role Phone Viviana Wayne CNM PCP Reason for Visit * Reason Comments Care Encounter Details Care Team Description Date Type Department Viviana Wayne, GUERRERO [address] [facility] [place] [address] High-risk in third trimester ( Primary Dx); Breech presentation, single or unspecified fetus; Bicornuate uterus 12/13/2019 Routine [facility] Visit [facility] [address] [place] [address] Allergies Comments Active Allergy Reactions Severity Noted Date Was a child Aspirin Swelling 01/28/2015 documented as of this encounter (statuses as of 12/13/2019) Medications End Date Status Medication Sig Dispensed Refills Start Date Active PNV 67-iron ps-folate Take 1 60 capsule 6 11/08 no.1-dha (VITAFOL ULTRA) capsule by 0 29 mg iron- 1 mg-200 mg mouth daily. CapIndications: High-risk in third trimester documented as of this encounter (statuses as of 12/13/2019) Active Problems Problem Noted Date Breech presentation 11/12/2019 Gallstones 08/21/2019 High-risk in third trimester 07/18/2019 Bicornuate uterus 09/22/2015 Estimated Date of Delivery Comments Yes 12/26/2019 Based on Ultrasound , FHT 161; posterior placenta documented as of this encounter (statuses as of 12/13/2019) Resolved Problems Problem Noted Date Resolved Date [...] started earlier at the provider s discretion). [email or web address] [phone] Supervision of other high-risk , third trimester [...] as of this encounter (statuses as of 12/13/2019) Immunizations Name Administration Dates Next Due Influenza Virus Vaccine 09/27/2019 Quad .5 mL [...] Signs Reading Time Taken Comments Vital Sign 116/71 12/13/2019 3:48 PM RISK SPECIALIST Blood Pressure 88 12/13/2019 3:48 PM RISK SPECIALIST Pulse 36.6 C (97.9 F) 12/13/2019 3:48 PM RISK SPECIALIST Temperature 20 12/13/2019 3:48 PM RISK SPECIALIST Respiratory Rate - - Oxygen Saturation - - Inhaled Oxygen Concentration 79.2 kg (174 lb 9.6 oz) 12/13/2019 3:48 PM RISK SPECIALIST Weight 165.1 cm (5' 5") 12/13/2019 3:48 PM RISK SPECIALIST Height 29.05 12/13/2019 3:48 PM RISK SPECIALIST Body Mass Index documented in this encounter Progress Notes * Viviana Wayne, ALONAM - 12/13/2019 3:30 PM RISK SPECIALIST Chief complaint: Chief Complaint Patient presents with Care CC: Follow Up Visit Ally Ramos is a 29 year old, , /White female. Patient's last menstrual period was 03/29/2019. She is 38w1d with an intrauteri ne . Her estimated date of delivery is 12/26/2019, by Ultrasound. She has no complaints today. Histories OB [...] Sexual Activity Alcohol use: No Alcohol/week: 0.0 standard drinks Drug use: No Sexual activity: Yes Partners: Male control/protection: None Comment: last intercourse 05/18/19 Lifestyle Physical activity: Days per week: Not on file Minutes per session: Not on file Stress: Not on file Relationships Social connections: Talks on phone: Not on file Gets together: Not on file Attends oriental orthodox service: Not on file Active member of [...] control/protection: None Comment: last intercourse 05/18/19 Labs Routine Visit on 12/06/2019 Component Date Value POCT U SP GRAV 12/06/2019 na POCT PH U 12/06/2019 7 POCT U LEUK EST 12/06/2019 2+ POCT U NIT 12/06/2019 n POCT U PROT 12/06/2019 trace POCT U GLU 12/06/2019 n POCT U KETONE 12/06/2019 n POCT U UROBILI 12/06/2019 na POCT U BILI 12/06/2019 na POCT U BLD 12/06/2019 n POCT U COLOR 12/06/2019 yellow POCT U APPEAR 12/06/2019 clear Routine Visit on 11/28/2019 Component Date Value Group B Streptococcus by* 11/28/2019 Negative WBC 11/28/2019 8.57 RBC 11/28/2019 4.31 HGB 11/28/2019 12.2 HCT 11/28/2019 38.6 MCV 11/28/2019 89.6 MCH 11/28/2019 28.3 MCHC 11/28/2019 31.6 RDW-SD 11/28/2019 44.5 RDW-CV 11/28/2019 13.6 PLT 11/28/2019 199 MPV 11/28/2019 10.8 NRBC/100 WBC 11/28/2019 0.0 NRBC x10^3 11/28/2019 <0.01 GRAN MAT (NEUT) % 11/28/2019 77.8 IMM GRAN % 11/28/2019 1.30 LYMPH % 11/28/2019 11.2 MONO % 11/28/2019 8.6 EOS % 11/28/2019 0.6 BASO % 11/28/2019 0.5 GRAN MAT x10^3(ANC) 11/28/2019 6.67 IMM GRAN x10^3 11/28/2019 0.11* LYMPH x10^3 11/28/2019 0.96* MONO x10^3 11/28/2019 0.74 EOS x10^3 11/28/2019 0.05 BASO x10^3 11/28/2019 0.04 POCT U SP GRAV 11/28/2019 na POCT PH U 11/28/2019 7.0 POCT U LEUK EST 11/28/2019 neg POCT U NIT 11/28/2019 neg POCT U PROT 11/28/2019 neg POCT U GLU 11/28/2019 2+ POCT U KETONE 11/28/2019 neg POCT U UROBILI 11/28/2019 na POCT U BILI 11/28/2019 na POCT U BLD 11/28/2019 neg POCT U COLOR 11/28/2019 yellow POCT U APPEAR 11/28/2019 cler VZV IgG antibody 11/28/2019 Positive Radiology No new radiology. Allergies Ally is allergic to asa [aspirin]. Medications Ally has a current medication list which includes the following prescription(s) : pnv 67-iron ps-folate no.1-dha. Review of Systems BP 116/71 | Pulse 88 | Temp 36.6 C (97.9 F) (Tympanic) | Resp 20 | Ht 5' 5" (1.651 m) | Wt 174 lb 9.6 oz (79.2 kg) | LMP 03/29/2019 | BMI 29.05 kg/m Pregravid BMI: 27.0 Physical Exam Assessment/Plan High-risk in third trimester (primary encounter diagnosis) Comment: Plan: POCT URINALYSIS W SPECIFIC GRAVITY Breech presentation, single or unspecified fetus Comment: Plan: C/S to be sched. Pt wants at 40w Bicornuate uterus Comment: Plan: Return to clinic in 1 weeks. at 38w1d This visit did not involve counseling and coordination that comprised more than 50% of the visit time. SPECIALIST * Smita Rubio, RN - 12/13/2019 3:30 PM RISK SPECIALIST You want to schedule on 12/26 @ 40.0wks ?? SPECIALIST documented in this encounter Plan of Treatment Care Team Description Date Type Specialty 12/26/2019 Hospital Obstetrics Encounter Health Maintenance Due Date Last Done Comments PAP SMEAR 05/21/2022 05/21/2019, 015 DTaP,Tdap,and Td Vaccines 10/26/2029 10/26/2019, 07/03/2015 (3 - Td) INFLUENZA VACCINE Completed 09/27/2019, 015 PNEUMOCOCCAL 0-64 YEARS Aged Out No longer elig ible based COMBINED SERIES on patient's age to complete this topic documented as of this encounter Procedures Comments Procedure Name Priority Date/Time Associated Diag nosis POCT URINALYSIS Routine 12/13/2019 High-risk preg joanne in 3:49 PM RISK SPECIALIST third trimester documented in this encounter Results * POCT URINALYSIS W SPECIFIC GRAVITY (12/13/2019 3:49 PM RISK SPECIALIST) POCT U SP GRAV na 1.005 - 1.025 mg/dl POCT PH U 5.0 5 - 8 mg/dl POCT U LEUK EST neg Negative - Negative POCT U NIT neg Negative - Negative POCT U PROT tr Negative - Negative POCT U GLU neg Negative - Negative POCT U KETONE neg Negative - Negative POCT U UROBILI na 0.2 - 1 mg/dl POCT U BILI na Negative - Negative POCT U BLD neg Negative - Negative POCT U COLOR yellow POCT U APPEAR clear Specimen Urine - URINE, CLEAN CATCH documented in this encounter Visit Diagnoses Diagnosis High-risk in third trimester - Primary Breech presentation, single or unspecif ied fetus Bicornuate uterus documented in this encounter Insurance Type Payer Benefit Subscriber ID Effective Phone Address Plan / Dates Group CHIP [employer] [place] [id number] 2019-P [address] [facility] resent [id number] [place] [address] CHIP MYLENE [phone] FPL [phone] documented as of this encounter
--- OUTSIDE RECORDS SUMMARY | 2020-04-04 19:38 | XMS REPORT | Summary of Care ---
Author Author [facility] - Health Organization [facility] - Health Address Unknown Phone Unavailable Care Team Providers Care Corn Miller Name Role Phone Viviana Wayne CNM PCP Reason for Visit * Reason Comments Care Encounter Details Care Team Description Date Type Department Viviana [place], GUERRERO [address] [place] [address] High-risk in third trimester ( Primary Dx); Breech presentation, single or unspecified fetus; Bicornuate uterus 11/28/2019 Routine [facility] Visit [facility] [address] [place] [address] Allergies Comments Active Allergy Reactions Severity Noted Date Was a child Aspirin Swelling 01/28/2015 documented as of this encounter (statuses as of 11/30/2019) Medications End Date Status Medication Sig Dispensed Refills Start Date Active PNV 67-iron ps-folate Take 1 60 capsule 6 11/08 no.1-dha (VITAFOL ULTRA) capsule by 0 29 mg iron- 1 mg-200 mg mouth daily. CapIndications: High-risk in third trimester 11/28/2019 Discontinued (Reorder) PNV 67-iron ps-folate Take 1 60 capsule 6 no.1-dha (VITAFOL ULTRA) capsule by 0 29 mg iron- 1 mg-200 mg mouth daily. CapIndications: High-risk in third trimester documented as of this encounter (statuses as of 11/30/2019) Active Problems Problem Noted Date Breech presentation 11/12/2019 Gallstones 08/21/2019 High-risk in third trimester 07/18/2019 Bicornuate uterus 09/22/2015 Estimated Date of Delivery Comments Yes 12/26/2019 Based on Ultrasound , FHT 161; posterior placenta documented as of this encounter (statuses as of 11/30/2019) Resolved Problems Problem Noted Date Resolved Date [...] started earlier at the provider s discretion). [email or web address] Page r [phone] Supervision of other high-risk , third trimester [...] as of this encounter (statuses as of 11/30/2019) Immunizations Name Administration Dates Next Due Influenza [...] Signs Reading Time Taken Comments Vital Sign 109/70 11/28/2019 11:43 AM STITCHER SPECIAL MACHINE Blood Pressure 90 11/28/2019 11:43 AM STITCHER SPECIAL MACHINE Pulse 36.9 C (98.4 F) 11/28/2019 11:43 AM STITCHER SPECIAL MACHINE Temperature 20 11/28/2019 11:43 AM STITCHER SPECIAL MACHINE Respiratory Rate - - Oxygen Saturation - - Inhaled Oxygen Concentration 78.8 kg (173 lb 12.8 oz) 11/28/2019 11:43 AM STITCHER SPECIAL MACHINE Weight 168.9 cm (5' 6.5") 11/28/2019 11:43 AM STITCHER SPECIAL MACHINE Height 27.63 11/28/2019 11:43 AM STITCHER SPECIAL MACHINE Body Mass Index documented in this encounter Progress Notes * Viviana Wayne, GUERRERO - 11/28/2019 11:00 AM STITCHER SPECIAL MACHINE Chief complaint: No chief complaint on file. CC: Follow Up Visit Ally Ramos is a 29 year old, , /White female. Patient's last menstrual period was 03/29/2019. She is 36w2d with an intrauteri ne . Her estimated [...] use tylenol Reflux gastritis 2012 Use antacids Family History Problem Relation Age [...] file Gets together: Not on file Attends sikh service: Not on file Active member of [...] last intercourse 05/18/19 Labs Routine Visit on 11/12/2019 Component Date Value POCT U SP GRAV 11/12/2019 na POCT PH U 11/12/2019 6.0 POCT U LEUK EST 11/12/2019 neg POCT U NIT 11/12/2019 neg POCT U PROT 11/12/2019 neg POCT U GLU 11/12/2019 tr POCT U KETONE 11/12/2019 neg POCT U UROBILI 11/12/2019 na POCT U BILI 11/12/2019 na POCT U BLD 11/12/2019 neg POCT U COLOR 11/12/2019 yellow POCT U APPEAR 11/12/2019 clear Radiology I have reviewed the patient's radiology. Breech on sono today Allergies Ally is allergic to asa [aspirin]. Medications Ally has a current medication list which includes the following prescription(s) : pnv 67-iron ps-folate no.1-dha. Review of Systems BP 109/70 | Pulse 90 | Temp 36.9 C (98.4 F) (Tympanic) | Resp 20 | Ht 5' 6.5" (1.689 m) | Wt 173 lb 12.8 oz (78.8 kg) | LMP 03/29/2019 | BMI 27.63 kg /m Pregravid BMI: 25.8 Physical Exam Assessment/Plan High-risk in third trimester (primary encounter diagnosis) Comment: Plan: CBC WITH DIFF, GROUP B STREPTOCOCCUS BY PCR, CBC WITH DIFFERENTIAL, POCT URINALYSIS W SPECIFIC GRAVITY, PNV 67-iron ps-folate no.1-dha (VITAFOL ULTRA) 29 mg iron- 1 mg-200 mg Cap, VZV ANTIBODY SCREEN Breech presentation, single or unspecified fetus Comment: W/ head in uterine horn Plan: Breech exercises and version info given. Consult w/ MFM next visit re: v ersion Bicornuate uterus Comment: Plan: Return to clinic in 1 weeks. at 36w2d This visit did not involve counseling and coordination that comprised more than 50% of the visit time. CHER SPECIAL MACHINE documented in this encounter Plan of Treatment Care Team Description Date Type Specialty Viviana Wayne CNM [address] [place] [address] [phone] 12/06/2019 Routine OB Satellites Visit Health Maintenance Due Date Last Done Comments PAP SMEAR 05/21/2022 05/21/2019, 015 DTaP,Tdap,and Td Vaccines 10/26/2029 10/26/2019, 07/03/2015 (3 - Td) INFLUENZA VACCINE Completed 09/27/2019, 015 PNEUMOCOCCAL 0-64 YEARS Aged Out No longer elig ible based COMBINED SERIES on patient's age to complete this topic documented as of this encounter Procedures Comments Procedure Name Priority Date/Time Associated Diag nosis CBC WITH DIFFERENTIAL Routine 11/28/2019 High-ris k in 12:57 PM STITCHER SPECIAL MACHINE third trimester VZV ANTIBODY SCREEN Routine 11/28/2019 High-risk in 12:57 PM STITCHER SPECIAL MACHINE third trimester CBC WITH DIFFERENTIAL Routine 11/28/2019 High-ris k in 12:57 PM STITCHER SPECIAL MACHINE third trimester GROUP B STREPTOCOCCUS BY Routine 11/28/2019 High- risk in PCR 12:50 PM STITCHER SPECIAL MACHINE third trimester POCT URINALYSIS Routine 11/28/2019 High-risk preg joanne in 11:44 AM STITCHER SPECIAL MACHINE third trimester documented in this encounter Results * VZV ANTIBODY SCREEN (11/28/2019 12:57 PM STITCHER SPECIAL MACHINE) VZV IgG Positive Negative [facility] antibody SERVICES Specimen Blood - ARM, RIGHT Narrative Performed At Positive - Indicates the patient was exposed to VZV t hrough infection or [facility] vaccination. SERVICES Negative - Indicates the patient could be susceptible to VZV infection. Equivocal - A second specimen should be sent for testing. Performing Organization Address City/State/Zipcode Ph one Number [facility] CLIA: [id number], [address] [place] [id number] [facility] * CBC WITH DIFFERENTIAL (11/28/2019 12:57 PM STITCHER SPECIAL MACHINE) WBC 8.57 4.30 - 11.10 [facility] 10*3/L SERVICES RBC 4.31 3.93 - 5.25 10*6/L [facility] HGB 12.2 11.6 - 15.0 g/dL [facility] RY SERVICES HCT 38.6 35.7 - 45.2 % [facility] MCV 89.6 80.6 - 95.5 fL [facility] MCH 28.3 25.9 - 32.8 pg [facility] MCHC 31.6 31.6 - 35.1 g/dL [facility] RDW-SD 44.5 39.0 - 49.9 fL [facility] RDW-CV 13.6 12.0 - 15.5 % [facility] PLT 199 166 - 358 10*3/L [facility] MPV 10.8 9.5 - 12.9 fL [facility] NRBC/100 WBC 0.0 0.0 - 10.0 /100 WBCs [facility] NRBC x10^3 <0.01 10*3/L [facility] GRAN MAT (NEUT) 77.8 % [facility] Y % SERVICES IMM GRAN % 1.30 % [facility] LYMPH % 11.2 % [facility] MONO % 8.6 % [facility] EOS % 0.6 % [facility] BASO % 0.5 % [facility] GRAN MAT 6.67 1.88 - 7.09 10*3/uL [facility] x10^3(ANC) SERVICES IMM GRAN x10^3 0.11 (H) 0.00 - 0.06 10*3/uL [facility] SERVICES LYMPH x10^3 0.96 (L) 1.32 - 3.29 10*3/uL [facility] MONO x10^3 0.74 0.33 - 0.92 10*3/uL [facility] EOS x10^3 0.05 0.03 - 0.39 10*3/uL [facility] BASO x10^3 0.04 0.01 - 0.07 10*3/uL [facility] SERVICES Specimen Blood - ARM, RIGHT Performing Organization Address [facility] one [facility] SERVICES CLIA: [id number], [address] [place] [address] [facility] * GROUP B STREPTOCOCCUS BY PCR (11/28/2019 12:50 PM STITCHER SPECIAL MACHINE) Pathologist [facility] B Negative Negative [facility] Streptococcus SERVICES by PCR Specimen Swab - VAGINA Performing Organization Address [facility] SERVICES CLIA: [id number], [address] [place] [address] [facility] * POCT URINALYSIS W SPECIFIC GRAVITY (11/28/2019 11:44 AM STITCHER SPECIAL MACHINE) POCT U SP GRAV na 1.005 - 1.025 mg/dl POCT PH U 7.0 5 - 8 mg/dl POCT U LEUK EST neg Negative - Negative POCT U NIT neg Negative - Negative POCT U PROT neg Negative - Negative POCT U GLU 2+ Negative - Negative POCT U KETONE neg Negative - Negative POCT U UROBILI na 0.2 - 1 mg/dl POCT U BILI na Negative - Negative POCT U BLD neg Negative - Negative POCT U COLOR yellow POCT U APPEAR cler Specimen Urine - URINE, CLEAN CATCH documented in this encounter Visit Diagnoses Diagnosis High-risk in third trimester - Primary Breech presentation, single or unspecif ied fetus Bicornuate uterus documented in this encounter Insurance Type Payer Benefit Subscriber ID Effective Phone Address Plan / Dates Group CHIP Mylene [facility] [place] [facility] [id number] 2019-P [address] [employer] CHIL[employer] resent [id number] [facility], [place] [address] CHIP MYLENE [phone] FPL [phone] documented as of this encounter
--- OUTSIDE RECORDS SUMMARY | 2020-04-04 19:38 | XMS REPORT | Summary of Care ---
Author Author [facility] - Health Organization [facility] - Health Address Unknown Phone Unavailable Care Team Providers Care Head Of Sales Name Role Phone Yeny Nguyen CNM PCP Reason for Visit * Reason Comments ULTRASOUND * (Routine) Referred By Contact Referred To Contact Status Reason Specialty Diagnoses / Procedures Yeny Nguyen CNM [address] [place] [address] Closed Maternal Diagnoses Medicine High-risk in first trimester P rocedures CONSULT MATERNAL MEDICINE ULTRASOUND Preferred Location: [place] Encounter Details Care Team Description Date Type Department Aziza Arizmendi [id number] [place] [address] Encounter for screening for un certain dates; Uterine size-date discrepancy in first trimester 06/11/2019 Director Investment Banking [facility] Visit Ultrasound- [place] [address] [place] [address] Allergies Comments Active Allergy Reactions [...] started earlier at the provider s discretion). [email or web address] Page r [phone] Supervision of other high-risk , third trimester [...] Description Date [place] [address] [facility] [address] [place], [place] [id number] 06/19/2019 Routine OB Satellites Visit Health Maintenance [...] Phone Address Plan / Dates Group Agency [facility] TITLE V [id number] 2019- 301 0-100% [place] [phone] documented as of this encounter
--- OUTSIDE RECORDS SUMMARY | 2020-04-04 19:38 | XMS REPORT | Summary of Care ---
Author Author [facility] - Health Organization [facility] - Health Address Unknown Phone Unavailable Care Team Providers Care Night Stocker Name Role Phone Yeny Nguyen CNM PCP Reason for Referral * (Routine) Referred By Contact Referred To Contact Status Reason Specialty Diagnoses / Procedures Yeny Nguyen CNM [address] [place] [address] New Request Maternal Diagnoses Medicine High-risk in second trimester P rocedures CONSULT MATERNAL MEDICINE ULTRASOUND Preferred Location: [place] Reason for Visit * Reason Comments Care Encounter Details Care Team Description Date Type Department Yeny Nguyen CNM [address] [place], [place] [id number] High-risk in second trimester (Primary Dx); Bicornuate uterus 07/18/2019 Routine [facility] Visit [facility] [address] [place] [address] Allergies Comments Active Allergy Reactions Severity Noted Date Was a child Aspirin Swelling 01/28/2015 documented as of this encounter (statuses as of 07/18/2019) Medications No known medicationsdocumented as of this encounter (statuses as of 07/18/2019) Active Problems Problem Noted Date High-risk in second trimester 07/18/2019 Bicornuate uterus 09/22/2015 Estimated Date of Delivery Comments Yes 12/26/2019 Based on Ultrasound , FHT 161; posterior placenta documented as of this encounter (statuses as of 07/18/2019) Resolved Problems Problem Noted Date Resolved Date Insertion of implantable subdermal contraceptive 6 07/18/2019 [...] earlier at the provider s discretion). [email or web address] Page r [phone] Supervision of other high-risk , third trimester [...] as of this encounter (statuses as of 07/18/2019) Immunizations Name Administration Dates Next Due Influenza [...] Signs Reading Time Taken Comments Vital Sign 110/66 07/18/2019 4:19 PM CDT Blood Pressure 78 07/18/2019 4:19 PM CDT Pulse 36.6 C (97.8 F) 07/18/2019 4:19 PM CDT Temperature - - Respiratory Rate - - Oxygen Saturation - - Inhaled Oxygen Concentration 75.8 kg (167 lb) 07/18/2019 4:19 PM CDT Weight 165.1 cm (5' 5") 07/18/2019 4:19 PM CDT Height 27.79 07/18/2019 4:19 PM CDT Body Mass Index documented in this encounter Progress Notes * Yeny Nguyen CNM - 07/18/2019 4:00 PM CDT Chief complaint: Chief Complaint Patient presents with Care CC: Follow Up Visit Ally Ramos is a 28 year old, , /White female. Patient's last menstrual period was 03/29/2019. She is 17w0d with an intrauteri ne . Her estimated date of delivery is 12/26/2019, by Ultrasound. + FM, denies contractions, LOF, or vaginal bleeding. Denies blurred vision, swelling , or epigastric pain. Pt denies current or past physical, sexual, or emotional abuse. She reports occasional headaches that improve with rest and Tylenol. Histories OB History Para Term AB Living [...] file Gets together: Not on file Attends tenriism service: Not on file Active member of [...] control/protection: None Comment: last intercourse 05/18/19 Labs Labs are pending. Radiology Radiology pending. Allergies Ally is allergic to asa [aspirin]. [...] pelvic pain. Musculoskeletal: Negative. Skin: Negative. Neurological: Positive for headaches. Negative for syncope, light-headedness and numbness. Psychiatric/Behavioral: Negative. Negative for dysphoric mood, self-injury and suicidal ideas. The patient is not nervous/anxious. Endocrine: Endocrine negative BP 110/66 | Pulse 78 | Temp 36.6 C (97.8 F) (Oral) | Ht 5' 5" (1.651 m) | Wt 167 lb (75.8 kg) | LMP 03/29/2019 | BMI 27.79 kg/m Pregravid BMI: Could not be calculated Physical Exam Vitals reviewed. Constitutional: She is oriented to person, place, and time. She appears well-dev eloped, well-nourished and well-groomed. Her body habitus is normal. Cardiovascular: No peripheral edema present. Pulmonary/Chest: Normal inspiratory effort. Abdominal: No tenderness present. There is no rigidity and no guarding. Neuro/Psychiatric: She has a normal mood and affect. She is oriented to person, place, and time. Skin: Skin normal. PHYSICAL: Pelvic Exam: Membrane status: Intact Uterus: 17 Weeks Assessment/Plan High-risk in second trimester (primary encounter diagnosis) Comment: 17w0d Plan: POCT URINALYSIS W SPECIFIC GRAVITY, CONSULT MATERNAL MEDICINE ULTRASOUND Preferred Location: [facility] 4[facility] Bicornuate uterus Comment: Plan: This visit did not involve counseling and coordination that comprised more than 50% of the visit time. documented in this encounter Plan of Treatment Care Team Description Date Type Specialty Yeny Nguyen CNM [id number] [facility] [address] [place], [place] [address] 08/15/2019 Routine OB Satellites Visit Date/Time Name Type Priority Associated Diag noses 07/18/2019 4:47 PM CDT [facility] LAB Routine High-risk pregn ashley in second trimester Health Maintenance Due Date Last Done Comments VARICELLA VACCINES (1 of 2002 2 - 13+ 2-dose series) INFLUENZA VACCINE (#1) 2019 08/19/2015 PAP SMEAR 05/21/2022 05/21/2019, 015 DTaP,Tdap,and Td Vaccines 07/03/2025 07/03/2015 (2 - Td) PNEUMOCOCCAL 0-64 YEARS Aged Out No longer elig ible based COMBINED SERIES on patient's age to complete this topic documented as of this encounter Procedures Comments Procedure Name Priority Date/Time Associated Diag nosis POCT URINALYSIS Routine 07/18/2019 High-risk preg joanne in 4:21 PM CDT second trimester documented in this encounter Results * POCT URINALYSIS W SPECIFIC GRAVITY (07/18/2019 4:21 PM CDT) POCT U SP GRAV NA 1.005 - 1.025 mg/dl POCT PH U 7 5 - 8 mg/dl POCT U LEUK EST NEG Negative - Negative POCT U NIT NEG Negative - Negative POCT U PROT NEG Negative - Negative POCT U GLU NEG Negative - Negative POCT U KETONE NEG Negative - Negative POCT U UROBILI NA 0.2 - 1 mg/dl POCT U BILI NA Negative - Negative POCT U BLD NEG Negative - Negative POCT U COLOR POCT U APPEAR Specimen Urine - URINE, CLEAN CATCH documented in this encounter Visit Diagnoses Diagnosis High-risk in second trimester - Primary Bicornuate uterus documented in this encounter Insurance Type Payer Benefit Subscriber ID Effective Phone Address Plan / Dates Group CHIP Mylene CHIP MYLENE [facility] [id number] 2019-P [address] [employer] PLAN CHILDRENS resent [id number] [facility] [id number] CHIP MYLENE [phone] FPL [phone] documented as of this encounter
--- OUTSIDE RECORDS SUMMARY | 2020-04-04 19:38 | XMS REPORT | Summary of Care ---
Author Author [facility] - Health Organization [facility] - Health Address Unknown Phone Unavailable Care Team Providers Care Marina Dry Dock Manager Name Role Phone Viviana Wayne CNM PCP Yeny Nguyen CNM PCP Encounter Details Care Team Description Date Type Department Doctor Unassigned, [place] [address] [place] [id number] 12/19/2019 Orders Only [facility] [address] [place] [address] Allergies Comments Active Allergy Reactions Severity Noted Date Was a child Aspirin Swelling 01/28/2015 documented as of this encounter (statuses as of 01/16/2020) Medications End Date Status Medication Sig Dispensed [...] as of this encounter (statuses as of 01/16/2020) Active Problems Problem Noted Date 39 weeks gestation of 12/19/2019 Breech presentation 11/12/2019 Gallstones 08/21/2019 High-risk in third trimester 07/18/2019 Bicornuate uterus 09/22/2015 documented as of this encounter (statuses as of 01/16/2020) Resolved Problems Problem Noted Date Resolved Date [...] started earlier at the provider s discretion). [email or web address] Page r [phone] Supervision of other high-risk , third trimester [...] as of this encounter (statuses as of 01/16/2020) Immunizations Name Administration Dates Next Due Influenza [...] Treatment Care Team Description Date Type Specialty 3, Pas-Rmchp Room 01/31/2020 Office Visit OB Satellites Provider, Christopher-Rmchp Temp 01/31/2020 Office Visit OB Satellites Health Maintenance Due Date Last Done Comments PAP SMEAR 05/21/2022 05/21/2019, 015 DTaP,Tdap,and Td Vaccines 10/26/2029 10/26/2019, 07/03/2015 (3 - Td) INFLUENZA VACCINE Completed 09/27/2019, 015 PNEUMOCOCCAL 0-64 YEARS Aged Out No longer elig ible based COMBINED SERIES on patient's age to complete this topic documented as of this encounter Procedures Comments Procedure Name Priority Date/Time Associated Diag nosis HOSPITAL ADMISSION Routine 12/19/2019 12:01 AM LIVESTOCK AGENT documented in this encounter Results Not on filedocumented in this encounter Insurance Type Payer Benefit Subscriber ID Effective Phone Address Plan / Dates Group CHIP Mylene CHIP MYLENE [facility] [id number] 2019-P [address] [facility] CHILDREN resent [id number] REPLACED BY [facility] [id number] CHIP MYLENE [phone] FPL Agency [facility] TITLE V [id number] 2019- 301 0-100% [place] [address] Medicaid [id number] xxxxxxxxx 2019- [phone] [address] [facility] 2019 [id number] [place] [address] documented as of this encounter
--- OUTSIDE RECORDS SUMMARY | 2020-04-04 19:38 | XMS REPORT | Summary of Care ---
Author Author [facility] - Health Organization [facility] - Health Address Unknown Phone Unavailable Care Team Providers Care Counseling Psychologist Name Role Phone Viviana Wayne CNM PCP Reason for Visit * Reason Comments Care Encounter Details Care Team Description Date Type Department Viviana Wayne, [place] [address] [address] High-risk in third trimester ( Primary Dx); Breech presentation, single or unspecified fetus; Bicornuate uterus 12/17/2019 Routine [facility] Visit [facility] [address] [place] [address] Allergies Comments Active Allergy Reactions Severity Noted Date Was a child Aspirin Swelling 01/28/2015 documented as of this encounter (statuses as of 12/17/2019) Medications End Date Status Medication Sig Dispensed Refills Start Date Active PNV 67-iron ps-folate Take 1 60 capsule 6 11/08 no.1-dha (VITAFOL ULTRA) capsule by 0 29 mg iron- 1 mg-200 mg mouth daily. CapIndications: High-risk in third trimester documented as of this encounter (statuses as of 12/17/2019) Active Problems Problem Noted Date Breech presentation 11/12/2019 Gallstones 08/21/2019 High-risk in third trimester 07/18/2019 Bicornuate uterus 09/22/2015 Estimated Date of Delivery Comments Yes 12/26/2019 Based on Ultrasound , FHT 161; posterior placenta documented as of this encounter (statuses as of 12/17/2019) Resolved Problems Problem Noted Date Resolved Date [...] started earlier at the provider s discretion). [email or web address] Page r [phone] Supervision of other high-risk , third trimester [...] as of this encounter (statuses as of 12/17/2019) Immunizations Name Administration Dates Next Due Influenza [...] Signs Reading Time Taken Comments Vital Sign 112/70 12/17/2019 1:39 PM BRINE MAKER Blood Pressure 78 12/17/2019 1:39 PM BRINE MAKER Pulse 37.3 C (99.1 F) 12/17/2019 1:39 PM BRINE MAKER Temperature 20 12/17/2019 1:39 PM BRINE MAKER Respiratory Rate 100% 12/17/2019 1:39 PM BRINE MAKER Oxygen Saturation - - Inhaled Oxygen Concentration 79.6 kg (175 lb 6.4 oz) 12/17/2019 1:39 PM BRINE MAKER Weight 168.9 cm (5' 6.5") 12/17/2019 1:39 PM BRINE MAKER Height 27.89 12/17/2019 1:39 PM BRINE MAKER Body Mass Index documented in this encounter Progress Notes * ToneViviana, CNM - 12/17/2019 1:15 PM BRINE MAKER Chief complaint: Chief Complaint Patient presents with Care CC: Follow Up Visit Ally Ramos is a 29 year old, , /White female. Patient's last menstrual period was 03/29/2019. She is 38w5d with an intrauteri ne . Her estimated [...] file Gets together: Not on file Attends restorationist service: Not on file Active member of [...] last intercourse 05/18/19 Labs Routine Visit on 12/13/2019 Component Date Value POCT U SP GRAV 12/13/2019 na POCT PH U 12/13/2019 5.0 POCT U LEUK EST 12/13/2019 neg POCT U NIT 12/13/2019 neg POCT U PROT 12/13/2019 tr POCT U GLU 12/13/2019 neg POCT U KETONE 12/13/2019 neg POCT U UROBILI 12/13/2019 na POCT U BILI 12/13/2019 na POCT U BLD 12/13/2019 neg POCT U COLOR 12/13/2019 yellow POCT U APPEAR 12/13/2019 clear Routine Visit on 12/06/2019 Component Date Value [...] 67-iron ps-folate no.1-dha. Review of Systems BP 112/70 | Pulse 78 | Temp 37.3 C (99.1 F) (Oral) | Resp 20 | Ht 5' 6.5 " (1.689 m) | Wt 175 lb 6.4 oz (79.6 kg) | LMP 03/29/2019 | SpO2 100% | BMI 27.89 kg/m Pregravid BMI: 25.8 Physical Exam Assessment/Plan High-risk in third trimester (primary encounter diagnosis) Comment: Plan: POCT URINALYSIS W SPECIFIC GRAVITY Breech presentation, single or unspecified fetus Comment: Plan: C/S sched for 12/19. Patient aware to be NPO Bicornuate uterus Comment: Plan: Return to L&D 12/19. This visit did not involve counseling and coordination that comprised more than 50% of the visit time. E MAKER * Smita Rubio, MIKE - 12/17/2019 1:15 PM BRINE MAKER Patient MF has been scheduled for Pcs on 12/19/2019 @ 39.0wks as requested. E MAKER documented in this encounter Plan of Treatment Care Team Description Date Type Specialty 12/19/2019 Hospital Obstetrics Encounter Faculty, [address] [address] SECTION 12/19/2019 Surgery Surgery Health Maintenance Due Date Last Done Comments PAP SMEAR 05/21/2022 05/21/2019, 015 DTaP,Tdap,and Td Vaccines 10/26/2029 10/26/2019, 07/03/2015 (3 - Td) INFLUENZA VACCINE Completed 09/27/2019, 015 PNEUMOCOCCAL 0-64 YEARS Aged Out No longer elig ible based COMBINED SERIES on patient's age to complete this topic documented as of this encounter Procedures Comments Procedure Name Priority Date/Time Associated Diag nosis POCT URINALYSIS Routine 12/17/2019 High-risk preg joanne in third trimester documented in this encounter Results * POCT URINALYSIS W SPECIFIC GRAVITY (12/17/2019) POCT U SP GRAV na 1.005 - 1.025 mg/dl POCT PH U 7 5 - 8 mg/dl POCT U LEUK EST neg Negative - Negative POCT U NIT neg Negative - Negative POCT U PROT neg Negative - Negative POCT U GLU neg Negative - Negative POCT U KETONE neg Negative - Negative POCT U UROBILI na 0.2 - 1 mg/dl POCT U BILI na Negative - Negative POCT U BLD neg Negative - Negative POCT U COLOR POCT U APPEAR Specimen Urine - URINE, CLEAN CATCH documented in this encounter Visit Diagnoses Diagnosis High-risk in third trimester - Primary Breech presentation, single or unspecif ied fetus Bicornuate uterus documented in this encounter Insurance Type Payer Benefit Subscriber ID Effective Phone Address Plan / Dates Group CHIP Mylene CHIP MYLENE [facility] [id number] 2019-P [address] [facility] CHILDREN resour [facility] [id number] [facility] [id number] CHIP MYLENE [phone] FPL [phone] documented as of this encounter
--- OUTSIDE RECORDS SUMMARY | 2020-04-04 19:38 | XMS REPORT | Summary of Care ---
Author Author [facility] - Health Organization [facility] - Health Address Unknown Phone Unavailable Care Team Providers Care Financial Systems Manager Name Role Phone Yeny Nguyen CNM PCP Reason for Visit * Reason Comments Care Encounter Details Care Team Description Date Type Department Yeny Nguyen CNM [address] [place] [address] Status post section routine pos tpartum follow-up (Primary Dx); care and examination of lactating mother 01/09/2020 Routine [facility] Visit [facility] [address] [place] [address] Allergies Comments Active Allergy Reactions Severity Noted Date Was a child Aspirin Swelling 01/28/2015 documented as of this encounter (statuses as of 01/09/2020) Medications End Date Status Medication Sig Dispensed [...] as of this encounter (statuses as of 01/09/2020) Active Problems Problem Noted Date 39 weeks gestation of 12/19/2019 Breech presentation 11/12/2019 Gallstones 08/21/2019 High-risk in third trimester 07/18/2019 Bicornuate uterus 09/22/2015 documented as of this encounter (statuses as of 01/09/2020) Resolved Problems Problem Noted Date Resolved Date [...] E Research Study on 09/02/15. IRB # [id number], PI Dr. Szymanski Patient was randomized into [...] started earlier at the provider s discretion). [email or web address] Page r [phone] Supervision of other high-risk , third trimester [...] as of this encounter (statuses as of 01/09/2020) Immunizations Name Administration Dates Next Due HPV9 [...] Signs Reading Time Taken Comments Vital Sign 109/68 01/09/2020 11:36 AM CAREER GUIDANCE COUNSELOR Blood Pressure 68 01/09/2020 11:36 AM CAREER GUIDANCE COUNSELOR Pulse 36.6 C (97.9 F) 01/09/2020 11:36 AM CAREER GUIDANCE COUNSELOR Temperature 18 01/09/2020 11:36 AM CAREER GUIDANCE COUNSELOR Respiratory Rate - - Oxygen Saturation - - Inhaled Oxygen Concentration 69.4 kg (153 lb) 01/09/2020 11:36 AM CAREER GUIDANCE COUNSELOR Weight 167.6 cm (5' 6") 01/09/2020 11:36 AM CAREER GUIDANCE COUNSELOR Height 24.69 01/09/2020 11:36 AM CAREER GUIDANCE COUNSELOR Body Mass Index documented in this encounter Progress Notes * Yeny Nguyen CNM - 01/09/2020 10:45 AM CAREER GUIDANCE COUNSELOR Chief complaint: Chief Complaint Patient presents with Care Ally Ramos is a 29 year old, , /White female. Patient's last menstrual period was 03/29/2019. Patient presents for her visit. She is 3 week(s) status-post a c-sec tion. Incision is healing as expected.. Since discharge, lochia has decreased. Lochia described as bloody and brown. She is . She reports no complications in the bilateral breast(s). Patient denies pain. She reports th at she currently engages in sexual activity and has had partner(s) who are Male. She reports using the following method of control/protection: None. Perineal repair: none Infants course complicated? no The patients course was without complication. The patients hosp ital course was without complication. Post- hemoglobin before leaving hospital: HGB Date Value Ref Range Status 12/20/2019 11.9 11.6 - 15.0 g/* Final 02/06/2015 13.0 11.6 - 15.0 G/* Final complications: none Patient lives with with baby, with older child(kang) and with baby's father. OB History T2 L2 SAB0 TAB0 Ectopic0 Multiple0 Live Births2 Name of Baby 1: Not recorded Date: 09/22/15 GA: 39w0d Delivery: Normal Spontaneous Vagin al Apgar1: 9 Apgar5: 9 Living: Living Name of Baby 2: YAYA RAMOS,OMAYRA PEREIRA Date: 12/19/19 GA: 39w0d Delivery: , Low Transvers e Apgar1: Not recorded Apgar5: Not recorded Living: Living Depression Scale: I have been able to laugh and see the funny side of things: As much as I always could I have looked forward with enjoyment to things: As much as I ever did I have blamed myself unnecessarily when things went wrong: No, never I have been anxious or worried for no good reason: No, not at all I have felt scared or panicky for no good reason: No, not at all Things have been getting on top of me: No, I have been coping as well as ever I have been so unhappy that I have had difficulty sleeping: Not at all I have felt sad or miserable: No, not at all I have been so unhappy that I have been crying: No, never The thought of harming myself has occurred to me: Never Total: 0 Immunization History Administered Date(s) Administered HPV9 12/21/2019 Influenza Virus Vaccine Quad .5 mL IM 6+ MO 09/27/2019 Influenza Virus Vaccine Quad IM 3+ YRS 08/19/2015 PPD (TB) 03/10/2015 TDAP (ADACEL) VACCINE 10/26/2019 Tdap 07/03/2015 Histories OB History Para Term AB Living 2 2 2 2 SAB TAB Ectopic Multiple Live Births 0 2 # Outcome Date GA Lbr Suresh/2nd Weight Sex Delivery Anes PTL Lv 2 Term 12/19/19 39w0d 7 lb 1.9 oz (3.23 kg) F , L Spinal CINDY 1 Term 09/22/15 39w0d 8 lb 0.4 [...] Alive MGMo Alive MGFa Alive PGMo PGFa Past Surgical History: Procedure Laterality Date SECTION N/A 12/19/2019 Surgeon: Aziza Arizmendi MD; Location: Labor and Delivery [facility] [place] Social History Socioeconomic History Marital status: Single [...] file Gets together: Not on file Attends caodaism service: Not on file Active member of [...] list which includes the following prescription(s) : docusate calcium, ferrous sulfate, hydrocodone-acetaminophen, vitamin w/fa, and simethicone. Review of Systems Constitutional: Negative. Negative for chills and fever. HENT: Negative. Eyes: Negative for visual disturbance. Respiratory: Negative. Breasts: Negative. Negative for pain. Cardiovascular: Negative. Gastrointestinal: Negative. Negative for abdominal pain, constipation, diarrhea , nausea, rectal pain and vomiting. Genitourinary: Positive for vaginal bleeding. Negative for bladder incontinence, vaginal discharge, difficulty urinating, vaginal pain and pelvic pain. Musculoskeletal: Negative. Skin: Negative. Neurological: Negative. Negative for headaches. Endocrine: Endocrine negative BP 109/68 | Pulse 68 | Temp 36.6 C (97.9 F) (Tympanic) | Resp 18 | Ht 5' 6" (1.676 m) | Wt 153 lb (69.4 kg) | LMP 03/29/2019 | BMI 24.69 kg/m Pregravid BMI: 27.0 Physical Exam Vitals reviewed. Constitutional: She is oriented to person, place, and time. She appears well-dev eloped, well-nourished and well-groomed. Cardiovascular: No peripheral edema present. Pulmonary/Chest: Normal inspiratory effort. Abdominal: No tenderness present. There is no rigidity and no guarding. Neuro/Psychiatric: She has a normal mood and affect. She is oriented to person, place, and time. Skin: Skin normal. Assessment/Plan Status post section routine follow-up (primary encounter di agnosis) care and examination of lactating mother Comment: 3wpp Plan: RTC in 3w for WWE; patient desires condoms for contraception This visit did not involve counseling and coordination that comprised more than 50% of the visit time. ER GUIDANCE COUNSELOR documented in this encounter Plan of Treatment Care Team Description Date Type Specialty 2[facility] [facility] Yeny Nguyen CNM [address] [facility] [address] [place] [address] [phone] 01/30/[address] [facility] Health Maintenance Due Date Last Done Comments PAP SMEAR 05/21/2022 05/21/2019, 015 DTaP,Tdap,and Td Vaccines 10/26/2029 10/26/2019, 07/03/2015 (3 - Td) INFLUENZA VACCINE Completed 09/27/2019, 015 PNEUMOCOCCAL 0-64 YEARS Aged Out No longer elig ible based COMBINED SERIES on patient's age to complete this topic documented as of this encounter Results Not on filedocumented in this encounter Visit Diagnoses Diagnosis Status post section routine po stpartum follow-up - Primary Routine follow-up care and examination of lact ating mother documented in this encounter Insurance Type Payer Benefit Subscriber ID Effective Phone Address Plan / Dates Group CHIP Mylene CHIP MYLENE [facility] [id number] 2019-P [address]OX HEALTH PLAN CHILDRENS resent [id number] [facility] [place] [address] CHIP MYLENE [phone] FPL [phone] documented as of this encounter
[2020-04-04] MEDS ORDERED: ONDANSETRON HCL INJ 2MG/ML 2ML 2 MG/ML VIAL IV STA (20:52)
[2020-04-04] MEDS ORDERED: SODIUM CHLORIDE 0.9% 100 ML 100 ML IV STA (20:52)
[2020-04-04] MEDS ORDERED: SODIUM CHLORIDE 0.9% 1000ML 1,000 ML IV STA (20:52)
[2020-04-04] MEDS ORDERED: MORPHINE SULFATE INJ 4 MG/ML INJ 1ML IV PRN (21:00)
[2020-04-04 21:04] LABS: BASOPHILS # (AUTO) 0.1 (0.0-0.1); BASOPHILS % 0.7 % (0.0-1.0); EOSINOPHILS # (AUTO) 0.1 (0.0-0.4); EOSINOPHILS % 1.5 % (0.0-6.0); HEMATOCRIT 39.5 % (34.2-44.1); LYMPHOCYTES # (AUTO) 1.7 (1.0-3.2); LYMPHOCYTES % 18.6 % (18.0-39.1); MEAN CORPUSCULAR HEMOGLOBIN 27.4 pg (28-32); MEAN CORPUSCULAR HGB CONC 32.9 g/dL (31-35); MEAN CORPUSCULAR VOLUME 83.3 fL (81-99); MONOCYTES # (AUTO) 0.8 (0.2-0.8); MONOCYTES % 8.3 % (4.4-11.3); NEUTROPHILS # (AUTO) 6.5 (2.1-6.9); NEUTROPHILS % 70.6 % (38.7-80.0); PLATELET COUNT 195 x10e3/uL (140-360); RED BLOOD COUNT 4.74 x10e6/uL (3.6-5.1); RED CELL DISTRIBUTION WIDTH 13.7 % (11.7-14.4)
[2020-04-04 21:21] LABS: ALANINE AMINOTRANSFERASE 26 IU/L (0-55); ALBUMIN 4.1 g/dL (3.5-5.0); ALBUMIN/GLOBULIN RATIO 1.4 (0.8-2.0); ALKALINE PHOSPHATASE 87 IU/L (40-150); BLOOD UREA NITROGEN 10 mg/dL (7-26); BUN/CREATININE RATIO 14 (6-25); CARBON DIOXIDE 25 mmol/L (22-29); CHLORIDE 105 mmol/L (98-107); CREATININE, SERUM 0.73 mg/dL (0.57-1.11); EST GLOMERULAR FILTRATION RATE > 60 ML/MIN (60-); GLUCOSE 88 mg/dL (74-118); SODIUM 138 mmol/L (136-145)
--- NOTE | 2020-04-04 21:34 | Emergency Department Note ---
History of Present Illnes History of Present Illness Chief Complaint: Abdominal Complaints History of Present Illness This is a 29 year old female arrives to the ED with 1 day history of right upper quadrant abdominal pain. Patient states she was told she had problems the gallbladder in the past as well as during her recent . Patient states she recently had a baby about 3 months ago. Patient admits to fried greasy food and pain subsequently started soon after. Patient notes nausea but no vomiting. He is localized right upper quadrant wrapping around her back. She denies any dysuria hematuria, no pelvic pain, no chest pain, no shortness of breath, fever pain is sharp and worse with motion and oral intake. Chief Complaint Comment 29 Y/O FEMALE PT AAOX3 PRESENTS TO ED WITH UMBILICAL PAIN X1 DAY FOLLOWING EATING 2 HOT DOGS; PT REPORTS DX'D WITH GALLSTONES WHEN , IS CURRENTLY 3 MONTHS ; PTS V/S/S; RESP EVEN AND UNLABORED, O2 SAT RA 99%; [employer] ATTENDANT TO TRIAGE Historian: Patient Arrival Mode: Car History limited by: language barrier (spoke to patient in [place]e, arabic translator offered, patient reportedly expressed understanding) Keyliner Required: No Onset (how long ago): day(s) Radiation: back Severity: moderate Onset quality: gradual Duration (how long): day(s) Timing of current episode: constant Progression: worsening Chronicity: recurrent Relieving factors: none Exacerbating factors: eating Past Medical/Family History Physician Review I have reviewed the patient's past medical and family history. Any updates have been documented here. Past Medical History Recent Fever: No Clinical Suspicion of Infectio: No New/Unexplained Change in Ment: No Past Medical History: None Past Surgical History: Social History Smoking Cessation: Never Smoker Family History Family history of heart diseas: No Other Last Tetanus: UTD Review of Systems Review of Systems Constitutional: no symptoms EENTM: no symptoms Cardiovascular: no symptoms Respiratory: no symptoms Gastrointestinal: abdominal pain, nausea Genitourinary: no symptoms Musculoskeletal: no symptoms Neurological: no symptoms Psychological: no symptoms Endocrine: no symptoms Hematological/Lymphatic: no symptoms Review of other systems All other systems reviewed and negative. Physical Exam Related Data Allergies: Coded Allergies: aspirin (Verified Allergy, Intermediate, 04/04/20) Triage Vital Signs Vital Signs Date Time Temp Pulse Resp B/P (MAP) Pulse Ox O2 Delivery O2 Flow Rate FiO2 04/04/20 20:43 98.0 72 17 121/92 99 Vital signs reviewed: Yes Physical Exam CONSTITUTIONAL Constitutional: well-developed, well-nourished HENT HENT: normocephalic, atraumatic, oropharynx clear/moist, nose normal HENT L/R: left ext ear normal, right ext ear normal EYES Eyes: PERRL, conjunctivae normal NECK Neck: ROM normal PULMONARY Pulmonary: effort normal, breath sounds normal CARDIOVASCULAR Cardiovascular: regular rhythm, heart sounds normal, capillary refill normal, normal rate GASTROINTESTINAL Abdominal: bowel sounds normal GENITOURINARY Genitourinary: exam deferred SKIN Skin: warm, dry MUSCULOSKELETAL Musculoskeletal: ROM normal NEUROLOGICAL Neurological: alert, oriented x 3, no gross motor or sensory deficits PSYCHOLOGICAL Psychological: mood/affect normal, judgement normal Results Laboratory Result Diagram: 04/04/20200904/04/202009 Laboratory Laboratory Tests Test 04/04/20 20:10 White Blood Count 9.18 x10e3/uL (4.8-10.8) Red Blood Count 4.74 x10e6/uL (3.6-5.1) Hemoglobin 13.0 g/dL (12.0-16.0) Hematocrit 39.5 % (34.2-44.1) Mean Corpuscular Volume 83.3 fL (81-99) Mean Corpuscular Hemoglobin 27.4 pg (28-32) Mean Corpuscular Hemoglobin Concent 32.9 g/dL (31-35) Red Cell Distribution Width 13.7 % (11.7-14.4) Platelet Count 195 x10e3/uL (140-360) Neutrophils (%) (Auto) 70.6 % (38.7-80.0) Lymphocytes (%) (Auto) 18.6 % (18.0-39.1) Monocytes (%) (Auto) 8.3 % (4.4-11.3) Eosinophils (%) (Auto) 1.5 % (0.0-6.0) Basophils (%) (Auto) 0.7 % (0.0-1.0) Neutrophils # (Auto) 6.5 (2.1-6.9) Lymphocytes # (Auto) 1.7 (1.0-3.2) Monocytes # (Auto) 0.8 (0.2-0.8) Eosinophils # (Auto) 0.1 (0.0-0.4) Basophils # (Auto) 0.1 (0.0-0.1) Absolute Immature Granulocyte (auto 0.03 x10e3/uL (0-0.1) Sodium Level 138 mmol/L (136-145) Potassium Level 4.0 mmol/L (3.5-5.1) Chloride Level 105 mmol/L (98-107) Carbon Dioxide Level 25 mmol/L (22-29) Anion Gap 12.0 mmol/L (8-16) Blood Urea Nitrogen 10 mg/dL (7-26) Creatinine 0.73 mg/dL (0.57-1.11) Estimat Glomerular Filtration Rate > 60 ML/MIN (60-) BUN/Creatinine Ratio 14 (6-25) Glucose Level 88 mg/dL (74-118) Calcium Level 9.0 mg/dL (8.4-10.2) Total Bilirubin 0.5 mg/dL (0.2-1.2) Aspartate Amino Transf (AST/SGOT) 35 IU/L (5-34) Alanine Aminotransferase (ALT/SGPT) 26 IU/L (0-55) Alkaline Phosphatase 87 IU/L (40-150) Total Protein 7.1 g/dL (6.5-8.1) Albumin 4.1 g/dL (3.5-5.0) Globulin 3.0 g/dL (2.3-3.5) Albumin/Globulin Ratio 1.4 (0.8-2.0) Lab results reviewed: Yes Imaging Imaging results reviewed: Yes Impressions CT findings suggestive of cholecystitis. Recommend right upper quadrant ultrasound. Subtle tram track hypodensities about the intrahepatic portal veins can be due to biliary ductal dilation or portal edema can also be evaluated with right upper quadrant ultrasound. A 1.2 cm hyperdensity in hepatic segment 7 is likely benign, possibly focal nodular hyperplasia, adenoma, or hemangioma. Attention on right upper quadrant ultrasound to hepatic segment 7. Critical Care Time Subsequent provider I assumed direction of critical care for this patient from another provider of my specialty. Assessment & Plan Reassessment Reassessment 29-year-old female brought to the ED with complaints of right upper quadrant abdominal pain, CT findings concerning for acute cholecystitis. His clinical exam findings consistent with acute cholecystitis, patient admitted for possible cholecystectomy and Gen. surgery consultation. Assessment & Plan Final Impression: (1) DISORD OF GB, BILIARY TRAC AND PANCREAS IN DIS CLASSD ELSWHR (2) GALLSTONE ILEUS (3) ACUTE CHOLECYSTITIS Assessment & Plan CBC, CMP, IV fluids, test CT abdomen and pelvis Admission for acute cholecystitis General surgery consult Depart Disposition: HOME, SELF-CARE Last Vital Signs Date Time Temp Pulse Resp B/P (MAP) Pulse Ox O2 Delivery O2 Flow Rate FiO2 04/04/20 20:43 98.0 72 17 121/92 99 Medications in the ED Morphine Sulfate 4 mg ONCE PRN IV SEVERE PAIN (7-10); Start 04/04/20 at 21:00; Stop 04/11/20 at 20:59 Ondansetron HCl 4 mg NOW STAT IV ; Start 04/04/20 at 20:52; Stop 04/04/20 at 20:56; Status DC Sodium Chloride 100 ml @ 0 mls/hr ONCE STAT IV ; Start 04/04/20 at 20:52; Stop 04/04/20 at 20:55; Status DC Sodium Chloride 1,000 ml @ 0 mls/hr Q0M STAT IV ; Start 04/04/20 at 20:52; Stop 04/04/20 at 20:55; Status DC YEHUDA GOMEZ, April 04, 2020 21:34
[2020-04-05] VITALS (7 sets, daily range): BP systolic 116; BP diastolic 80–85
[2020-04-05] MEDS ORDERED: MORPHINE SULFATE INJ 4 MG/ML INJ 1ML ONE (00:29)
[2020-04-05] MEDS ORDERED: ONDANSETRON HCL INJ 2MG/ML 2ML 2 MG/ML VIAL ONE (00:29)
[2020-04-05] MEDS ORDERED: SODIUM CHLORIDE 0.9% 1000ML 2,000 ML ONE (00:29)
[2020-04-05 00:53] LABS: BILIRUBIN,URINE NEGATIVE (NEGATIVE); CLARITY,URINE CLEAR (CLEAR); COLOR,URINE YELLOW (YELLOW); KETONES,URINE NEGATIVE (NEGATIVE); LEUKOCYTE ESTERASE ,URINE NEGATIVE (NEGATIVE); NITRITE,URINE NEGATIVE (NEGATIVE); PROTEIN,URINE DIPSTICK NEGATIVE (NEGATIVE); URINE UROBILINOGEN 0.2 mg/dL (0.2 - 1)
[2020-04-05 00:57] LABS: BACTERIA,URINE MODERATE /HPF; PREGNANCY TEST, URINE NEGATIVE (NEGATIVE)
[2020-04-05] MEDS ORDERED: SODIUM CHLORIDE 0.9% 50ML 50 ML ONE (01:19)
[2020-04-05] MEDS ORDERED: IOPAMIDOL 370 MG/ML 200 ML INFUS..BTL INJ ONE (01:20)
--- NOTE | 2020-04-05 02:20 | Diagnostic Imaging Report ---
EXAM: CT Abdomen and Pelvis WITH contrast INDICATION: Right upper quadrant pain COMPARISON: None. TECHNIQUE: Abdomen and pelvis were scanned utilizing a multidetector helical scanner from the lung base to the pubic symphysis after administration of IV contrast. Coronal and sagittal reformations were obtained. Routine protocol was performed. Scan was performed when during portal venous phase. IV CONTRAST: 100 mL of Isovue 370 ORAL CONTRAST: None COMPLICATIONS: None RADIATION DOSE: Total DLP: 251 mGy*cm Estimated effective dose: (DLP x 0.015 x size factor) mSv CTDIvol has been reviewed. It is below the limits set by the Radiation Protocol Committee (RPC). Dose modulation, iterative reconstruction, and/or weight based adjustment of the mA/kV was utilized to reduce the radiation dose to as low as reasonably achievable. FINDINGS: LINES and TUBES: None. LOWER THORAX: Unremarkable HEPATOBILIARY: Subtle 1.2 cm hyperdensity in hepatic segment 7 (series 2 image 14). Subtle tram track hypodensities about the intrahepatic portal veins can be due to biliary ductal dilation or portal edema. No focal hepatic lesions. No biliary ductal dilation. GALLBLADDER: Hydropic gallbladder over 9 cm in long axis, and mildly thickened and heterogeneous gallbladder wall. Subtle pericholecystic fat stranding. No radiopaque stones or sludge. SPLEEN: No splenomegaly. PANCREAS: No focal masses or ductal dilatation. ADRENALS: No adrenal nodules KIDNEYS/URETERS: Kidneys enhance symmetrically. No hydronephrosis. No cystic or solid mass lesions. No stones. GI TRACT: No abnormal distention, wall thickening, or evidence of bowel obstruction. Appendix is normal. PELVIC ORGANS/BLADDER: Probable septate uterus. LYMPH NODES: No lymphadenopathy. VESSELS: Unremarkable. PERITONEUM / RETROPERITONEUM: No free air or fluid. BONES: Unremarkable. SOFT TISSUES: Pfannenstiel incision scar intact. IMPRESSION: CT findings suggestive of cholecystitis. Recommend right upper quadrant ultrasound. Subtle tram track hypodensities about the intrahepatic portal veins can be due to biliary ductal dilation or portal edema can also be evaluated with right upper quadrant ultrasound. A 1.2 cm hyperdensity in hepatic segment 7 is likely benign, possibly focal nodular hyperplasia, adenoma, or hemangioma. Attention on right upper quadrant ultrasound to hepatic segment 7. Signed by: Jean Pierre Mills DO on 04/05/2020 2:16 AM
[2020-04-05] MEDS ORDERED: MORPHINE SULFATE 2 MG/ML SYR 1ML IV PRN (02:30)
--- OUTSIDE RECORDS SUMMARY | 2020-04-05 03:03 | XMS REPORT ---
Author Author [facility] t Organization [facility] Address [address] [place] [address] Phone Unavailable Care Team Providers Care Project Associate Name Role Phone NO, PCP PCP Unavailable Rose Mary GOMEZ Attphys Unavailable MONA JULIAN Attphys Unavailable Eunice Nguyen CNM Attphys Jovan Salazar Rn [facility] Attphys Unavailable Porsha Jules MD Attphys Doctor Unassigned, Name No Attphys Unavailable Tereso Wayne CNM Attphys [address] [place] [address] Attphys Unavailable MONA JULIAN Admphys Unavailable Porsha Jules MD Admphys Payers Payer Name Policy Type Policy Number Effective Date Expiration Date S ource Problems Condition Name Condition Details Condition Category Status Onset Date Resolution Date Last Treatment Date Treating Clinician Comments Source Pancreatitis Problem Active [facility] Cholecystitis Problem Active [facility] Allergies, Adverse Reactions, Alerts Allergy Name Allergy Type Status Severity Reaction(s) Onset Date Inacti ve Date Treating Clinician Comments Source Aspirin Allergy to substance Active Severe SWELLING IN TON YESSI AND THROAT 2020-03-06 00:00:00 [facility] aspirin DA Active [place] 2019-07-25 00:00:00 [facility] No Known Allergies DA Active U 2019-07-25 00:00:00 [facility] Social History Social Habit Start Date Stop Date Quantity Comments Source Sex Assigned At 1990 00:00:00 1990 00:00:00 Female [facility] Medications Ordered Medication Name Filled Medication Name Start Date Stop Da te Current Medication? Ordering Clinician Indication Dosage Frequency Signature (SIG) Comments Components Source Famotidine (Pepcid) 20 Mg TABLET Famotidine (Pepcid) 20 Mg T ABLET 2020-03-10 08:52:00 Yes 20 Twice A Day [facility] Ondansetron Hcl (Zofran*) 4 Mg TABLET Ondansetron Hcl (Zofra n*) 4 Mg TABLET 2020-03-10 08:52:00 Yes 4 Every 4 Hour s as needed for Nausea/Vomiting [facility] Vital Signs Vital Name Observation Time Observation Value Comments Source Body Temperature 2020-03-10 11:46:00 97.7 [degF] [facility] Weight 2020-03-08 00:47:00 159.56 [lb_av] [facility] BMI (Body Mass Index) 2020-03-08 00:47:00 25.4 kg/m2 [facility] Procedures Procedure Date / Time Performed Performing Clinician Antonio cruz US Gallbladder 2020-03-10 00:00:00 [facility] Magnetic resonance cholangiopancreatography (MRCP) wit hout contrast 2020-03-07 00:00:00 [facility] CT of abdomen and pelvis without contrast 2020-03-06 00:00:00 [facility] Computed tomography of abdomen with contrast 2020-03-06 00:00:00 [facility] Plan of Care Planned Activity Planned Date Details Comments Source Instructions Cholelithiasis [facility] Encounters Start Date/Time End Date/Time Encounter Type [facility] Encounter ID Source 2020-03-06 17:55:00 2020-03-10 14:24:00 Discharged Inpatient 1 MONA JULIAN [facility] [id number] [facility] 2020-01-09 10:52:18 2020-01-09 11:47:42 Routine Visit Yeny Nguyen [facility] INPUT OUTPUT CLERK [facility] & CHILD [facility] [id number] 2019-12-26 10:04:52 2019-12-26 10:45:22 Nurse Visit 1Christopher Rn [facility] INPUT OUTPUT CLERK [facility] CHILD [facility] [id number] 2019-12-19 06:31:00 2019-12-21 13:20:00 Hospital Encounter Charly Jules [facility] [id number] 2019-12-19 00:00:00 2019-12-19 00:00:00 Orders Only D octor Unassigned, [place] [facility] [id number] 2019-12-17 13:16:43 2019-12-17 14:01:45 Routine Visit Viviana Wayne [facility] INPUT OUTPUT CLERK [facility] CHILD [facility] [id number] 2019-12-13 15:34:16 2019-12-13 16:37:54 Routine Visit Viviana Wayne [facility] INPUT OUTPUT CLERK [facility] & CHILD [facility] [id number] 2019-07-18 16:05:34 2019-07-18 16:50:45 Routine Visit Yeny Nguyen [facility] INPUT OUTPUT CLERK [facility] CHILD [facility] [id number] 2019-06-19 15:28:12 2019-06-19 16:04:29 Routine Visit Yeny Nguyen [facility] INPUT OUTPUT CLERK [facility] [id number] 2019-06-11 15:27:50 2019-06-11 15:54:27 Brusher Hand Visit 1 , [facility] Room [facility] INPUT OUTPUT CLERK [facility] [id number] Results Test Description Test Time Test Comments Results Result Comments Source CT ABDOMEN/PELVIS W 2020-04-05 02:04:00 [place] [address] Patient Name: RANDALL JAVIER MR #: [id number] : 1990 Age/Sex: 29/F Req #: [id number] Adm Physician: Ordered by: YEHUDA GOMEZ DO Report #: [id number] Location: ER Room/Bed: Procedure: [id number] CT/CT ABDOMEN/PELVIS W Exam Date: 04/05/20 Exam Time: 0120 REPORT STATUS: Signed EXAM: CT Abdomen and Pelvis WITH contrast INDICATION: Right upper quadrant pain COMPARISON: None. TECHNIQUE: Abdomen and pelvis were scanned utilizing a multidetector helical scanner from the lung base to the pubic symphysis after administration of IV contrast. Coronal and sagittal reformations were obtained. Routine protocol was performed. Scan was performed when during portal venous phase. IV CONTRAST: 100 mL of Isovue 370 ORAL CONTRAST: None COMPLICATIONS: None RADIATION DOSE: Total DLP: 251 mGy*cm Estimated effective dose: (DLP x 0.015 x size factor) mSv CTDIvol has been reviewed. It is below the limits set by the Radiation Protocol Committee (RPC). Dose modulation, iterative reconstruction, and/or weight based adjustment of the mA/kV was utilized to reduce the radiation dose to as low as reasonably achievable. FINDINGS: LINES and TUBES: None. LOWER THORAX: Unremarkable HEPATOBILIARY: Subtle 1.2 cm hyperdensity in hepatic segment 7 (series 2 image 14). Subtle tram track hypodensities about the intrahepatic portal veins can be due to biliary ductal dilation or portal edema. No focal hepatic lesions. No biliary ductal dilation. GALLBLADDER: Hydropic gallbladder over 9 cm in long axis, and mildly thickened and heterogeneous gallbladder wall. Subtle pericholecystic fat stranding. No radiopaque stones or sludge. SPLEEN: No splenomegaly. PANCREAS: No focal masses or ductal dilatation. ADRENALS: No adrenal nodules KIDNEYS/URETERS: Kidneys enhance symmetrically. No hydronephrosis. No cystic or solid mass lesions. No stones. GI TRACT: No abnormal distention, wall thickening, or evidence of bowel obstruction. Appendix is normal. PELVIC ORGANS/BLADDER: Probable septate uterus. LYMPH NODES: No lymphadenopathy. VESSELS: Unremarkable. PERITONEUM / RETROPERITONEUM: No free air or fluid. BONES: Unremarkable. SOFT TISSUES: Pfannenstiel incision scar intact. IMPRESSION: CT findings suggestive of cholecystitis. Recommend right upper quadrant ultrasound. Subtle tram track hypodensities about the intrahepatic portal veins can be due to biliary ductal dilation or portal edema can also be evaluated with right upper quadrant ultrasound. A 1.2 cm hyperdensity in hepatic segment 7 is likely benign, possibly focal nodular hyperplasia, adenoma, or hemangioma. Attention on right upper quadrant ultrasound to hepatic segment 7. Signed by: Jean Pierre Yeung DO on 04/05/2020 2:16 AM Dictated By: JEAN PIERRE YEUNG DO 5 Transcribed By: EDNISSE on 04/05/20215 COPY TO: YEHUDA GOMEZ DO GALLBLADDER 2020-03-10 11:26:00 [place] [address] Patient Name: RANDALL IVORY MR #: [id number] : 1990 Age/Sex: 29/F Req #: [id number] Adm Physician: MONA JULIAN MD Ordered by: MONA JULIAN MD Report #: [id number] Location: MED/SURG Room/Bed: [facility] Procedure: [id number] US/US GALLBLADDER Exam Date: 03/10/20 Exam Time: [...] code = 1975-2) 0.9 0.2-1.2 [facility] plasma conjugated bilirubin measurement (mass/volume)2020-03-10 05:15:00* Test Item Value Reference Range Interpretation Comments Direct Bilirubin (test code = 78045-2) 0.5 0.0-0.5 [facility] procedure less than one hour rsevspba0407-20-03 05:15:00* Test Item Value Reference Range Interpretation Comments Aspartate Amino Transf (AST/SGOT) (test code = Aspartate Amino Transf (AST/SGOT)) 63 5-34 [facility] or plasma alanine aminotransferase measurement (enzymatic activity/volume)2020-03-10 05:15:00* Test Item Value Reference Range Interpretation Comments Alanine Aminotransferase (ALT/SGPT) (test code = 1742-6) 532 0-55 [facility] or plasma protein measurement (mass/volume)2020-03-10 05:15:00* Test Item Value Reference Range Interpretation Comments Total Protein (test code = 2885-2) 6.8 6.5-8.1 [facility] or plasma albumin measurement (mass/volume)2020-03-10 05:15:00* Test Item Value Reference Range Interpretation Comments Albumin (test code = 1751-7) 3.7 3.5-5.0 [facility] or plasma alkaline phosphatase measurement (enzymatic activity/volume)2020-03-10 05:15:00* Test Item Value Reference Range Interpretation Comments Alkaline Phosphatase (test code = 6768-6) 155 40-150 [facility] or plasma lipase measurement (enzymatic activity/volume)2020-03-10 05:15:00* Test Item Value Reference Range Interpretation Comments Lipase (test code = 3040-3) 92 8-78 [facility] leukocytes automated count (number/volume)2020-03-09 05:30:00* Test Item Value Reference Range Interpretation Comments White Blood Count (test code = 6690-2) 5.17 4.8-10.8 [facility] erythrocytes automated count (number/volume)2020-03-09 05:30:00* Test Item Value Reference Range Interpretation Comments Red Blood Count (test code = 789-8) 4.79 3.6-5.1 [facility] hemoglobin measurement (moles/volume)2020-03-09 05:30:00* Test Item Value Reference Range Interpretation Comments Hemoglobin (test code = 99258-2) 13.3 12.0-16.0 [facility] Paso[facility] blood hematocrit (volume fraction)2020-03-09 05:30:00* Test Item Value Reference Range Interpretation Comments Hematocrit (test code = 4544-3) 39.5 34.2-44.1 [facility] Paso[facility]ated erythrocyte mean corpuscular tibpuj3545-05-80 05:30:00* Test Item Value Reference Range Interpretation Comments Mean Corpuscular Volume (test code = 787-2) 82.5 81-99 [facility] PasoAutom[facility] erythrocyte mean corpuscular hemoglobin (mass per erythrocyte)2020-03-09 05:30:00* Test Item Value Reference Range Interpretation Comments Mean Corpuscular Hemoglobin (test code = 785-6) 27.8 28-32 [facility] Paso[facility] erythrocyte mean corpuscular hemoglobin concentration measurement (mass/volume)2020-03-09 05:30:00* Test Item Value Reference Range Interpretation Comments Mean Corpuscular Hemoglobin Concent (test code = 786-4) 33.7 31-35 [facility] PasoRDW SluZr-Nnn3188-64-03 05:30:00* Test Item Value Reference Range Interpretation Comments Red Cell Distribution Width (test code = 87137-1) 13.8 11.7 -14.4 [facility] Paso[facility] blood platelet count (count/volume)2020-03-09 05:30:00* Test Item Value Reference Range Interpretation Comments Platelet Count (test code = 777-3) 210 140-360 [facility] Paso[facility] blood segmented neutrophil count as percentage of total qrofrlnigk6679-70-90 05:30:00* Test Item Value Reference Range Interpretation Comments Neutrophils (%) (Auto) (test code = 80032-5) 57.7 38.7-80.0 [facility] blood lymphocyte count as percentage ot total xhuegudzvp1089-67-29 05:30:00* Test Item Value Reference Range Interpretation Comments Lymphocytes (%) (Auto) (test code = 736-9) 26.3 18.0-39.1 [facility] Paso[facility] blood monocyte count as percentage of total rtcaevlrqv2286-03-03 05:30:00* Test Item Value Reference Range Interpretation Comments Monocytes (%) (Auto) (test code = 5905-5) 10.4 4.4-11.3 [facility] eosinophil count as percentage of total rdmslonvvr3601-06-57 05:30:00* Test Item Value Reference Range Interpretation Comments Eosinophils (%) (Auto) (test code = 713-8) 4.6 0.0-6.0 [facility] blood basophil count as percentage of total lsvkewlhzs7230-77-29 05:30:00* Test Item Value Reference Range Interpretation Comments Basophils (%) (Auto) (test code = 706-2) 0.8 0.0-1.0 [facility] PasoFluoroscopic procedure less than one hour zrshucnp2105-69-61 05:30:00* Test Item Value Reference Range Interpretation Comments IM GRANULOCYTES % (test code = IM GRANULOCYTES %) 0.2 0.0- 1.0 [facility] neutrophil count 2020-03-09 05:30:00* Test Item Value Reference Range Interpretation Comments Neutrophils # (Auto) (test code = 751-8) 3.0 2.1-6.9 [facility] lymphocytes count (number/volume) 2020-03-09 05:30:00* Test Item Value Reference Range Interpretation Comments Lymphocytes # (Auto) (test code = 62363-8) 1.4 1.0-3.2 [facility] Paso[facility] monocytes automated count (number/volume)2020-03-09 05:30:00* Test Item Value Reference Range Interpretation Comments Monocytes # (Auto) (test code = 742-7) 0.5 0.2-0.8 [facility] Paso[facility] blood eosinophil count 2020-03-09 05:30:00* Test Item Value Reference Range Interpretation Comments Eosinophils # (Auto) (test code = 711-2) 0.2 0.0-0.4 [facility] Paso[facility] blood basophil count (count/volume)2020-03-09 05:30:00* Test Item Value Reference Range Interpretation Comments Basophils # (Auto) (test code = 704-7) 0.0 0.0-0.1 [facility] PasoFluoroscopic procedure less than one hour vmtinngv3344-51-93 05:30:00* Test Item Value Reference Range Interpretation Comments Absolute Immature Granulocyte (auto (izabel t code = Absolute Immature Granulocyte (auto) 0.01 0-0.1 [facility] or plasma sodium measurement (moles/volume)2020-03-09 05:30:00* Test Item Value Reference Range Interpretation Comments Sodium Level (test code = 2951-2) 138 136-145 [facility] or plasma potassium measurement (moles/volume)2020-03-09 05:30:00* Test Item Value Reference Range Interpretation Comments Potassium Level (test code = 2823-3) 3.2 3.5-5.1 [facility] or plasma chloride measurement (moles/volume)2020-03-09 05:30:00* Test Item Value Reference Range Interpretation Comments Chloride Level (test code = 2075-0) 110 98-107 [facility] or plasma carbon dioxide, total measurement (moles/volume)2020-03-09 05:30:00* Test Item Value Reference Range Interpretation Comments Carbon Dioxide Level (test code = 2028-9) 16 22-29 [facility] or plasma anion xrj5029-03-82 05:30:00* Test Item Value Reference Range Interpretation Comments Anion Gap (test code = 69785-6) 15.2 8-16 [facility] or plasma urea nitrogen measurement (mass/volume)2020-03-09 05:30:00* Test Item Value Reference Range Interpretation Comments Blood Urea Nitrogen (test code = 3094-0) 5 7-26 [facility] or plasma creatinine measurement (mass/volume)2020-03-09 05:30:00* Test Item Value Reference Range Interpretation Comments Creatinine (test code = 2160-0) 0.62 0.57-1.11 [facility] or plasma urea nitrogen/creatinine mass fausm9185-56-50 05:30:00* Test Item Value Reference Range Interpretation Comments BUN/Creatinine Ratio (test code = 3097-3) 8 6-25 [facility] PasoEstimated glomerular filtration rate (GFR) fornummspkbda6406-50-07 05:30:00* Test Item Value Reference Range Interpretation Comments Estimat Glomerular Filtration Rate (test code = 544747503) > 60 >60 Ranges were taken from the National Kidney Disease Education Program and the [facility] [employer] literature.Reference ranges:60 or greater: Hqlwhc37-42 ( for 3 consecutive months): Chronic kidney disease 15 or less: Kidney failureUniversity [facility] Center of [facility] PasoGlucose ejhbjmqoqpv2101-47-26 05:30:00* Test Item Value Reference Range Interpretation Comments Glucose Level (test code = ALQ3251) 65 74-118 [facility] or plasma calcium measurement (mass/volume)2020-03-09 05:30:00* Test Item Value Reference Range Interpretation Comments Calcium Level (test code = 62813-3) 8.9 8.4-10.2 [facility] PasoMRI MRCP IU5611-39-80 19:05:00 [facility] [address] [place] [address] Patient Name: RANDALL IVORY MR #: [id number] : 1990 Age/Sex: 29/F Req #: [id number] Adm Physician: MONA JULIAN MD Ordered by: MONA JULIAN MD Report #: [id number] Location: MED/SURG Room/Bed: [facility] Procedure: [id number] M RI/MRI MRCP WO Exam Date: Exam [...] 7:13 PM Dictated By: OLU GASPAR MD 12 Transcribed By: DENISSE on 03/08/20 3 COPY TO: MONA JULIAN MD Serum or plasma ethanol measurement (mass/volume)2020-03-07 16:02:00* Test Item Value Reference Range Interpretation Comments Ethyl Alcohol Level (test code = 5643-2) < 10.0 0.0-10.0 [facility] PasoCT ABDOM[facility] Y4338-55-80 17:00:00 [facility] [address] [place] [address] Patient Name: RANDALL IVORY MR #: [id number] : 1990 Age/Sex: 29/F Req #: [id number] Adm Physician: Ordered by: [employer] Report #: [id number] Location: ER Room/Bed: Procedure: 0430-[address]/CT ABDOMEN W Exam Date: 03/06/20 Exam [...] DENISSE on 03/06/201704 COPY TO: [employer] CT ABDOMEN/PELVIS DV9104-20-03 16:04:00 [place] [address] Patient Name: RANDALL IVORY MR #: [id number] : 1990 Age/Sex: 29/F Req #: [id number] Adm Physician: Ordered by: [employer] Report #: [id number] Location: ER Room/Bed: Procedure: 0430-[address]/CT ABDOMEN/PELVIS WO Exam Date: 03/06/20 Exam [...] igned By: ADAN WATSON MD on 03/06/20 1616 Transcribed By: DENISSE on 1606 COPY TO: PABLO DUNCAN NP Urine color determination 2020-03-06 14:20:00* Test Item Value Reference Range Interpretation Comments Urine Color (test code = 5778-6) STRAW YELLOW [facility] PasoUrine itrmfbz0547-35-72 14:20:00* Test Item Value Reference Range Interpretation Comments Urine Clarity (test code = 80521-0) SL CLOUDY CLEAR [facility] Southpecific gravity of Urine by Test strip 2020-03-06 14:20:00* Test Item Value Reference Range Interpretation Comments Urine Specific [place] (test code = 5811-5) 1.020 1.010-1.02 5 [facility] Paso[facility] pH measurement by automated test obady3678-50-44 14:20:00* Test Item Value Reference Range Interpretation Comments Urine pH (test code = 88938-6) 7 5-7 [facility] PasoUrine leukocyte esterase detection by ehzocoxx9682-26-84 14:20:00* Test Item Value Reference Range Interpretation Comments Urine Leukocyte Esterase (test code = 5799-2) NEGATIVE NEGATIVE [facility] PasoUrine nitrite srhuiwcbz9716-80-98 14:20:00* Test Item Value Reference Range Interpretation Comments Urine Nitrite (test code = 59144-6) NEGATIVE NEGATIVE [facility] Paso[facility]rine protein measurement by test strip (mass/volume)2020-03-06 14:20:00* Test Item Value Reference Range Interpretation Comments Urine Protein (test code = 5804-0) NEGATIVE NEGATIVE [facility] Paso[facility] glucose bsatyqipy7120-31-38 14:20:00* Test Item Value Reference Range Interpretation Comments Urine Glucose (UA) (test code = 2349-9) NEGATIVE NEGATIVE [facility] PasoUrine ketones detection by automated test cjhqb3426-97-16 14:20:00* Test Item Value Reference Range Interpretation Comments Urine Ketones (test code = 53603-8) NEGATIVE NEGATIVE [facility] PasoUrine urobilinogen measurement by test strip (mass/volume)2020-03-06 14:20:00* Test Item Value Reference Range Interpretation Comments Urine Urobilinogen (test code = 84314-1) 0.2 0.2-1 [facility] total bilirubin measurement (mass/volume)2020-03-06 14:20:00* Test Item Value Reference Range Interpretation Comments Urine Bilirubin (test code = 1978-6) MODERATE NEGATIVE [facility] PasoUrine erythrocytes jzqqyfkyz8985-53-80 14:20:00* Test Item Value Reference Range Interpretation Comments Urine Blood (test code = 32297-9) TRACE NEGATIVE [facility] PasoAutomated urine sediment leukocyte count by microscopy (number/high power field)2020-03-06 14:20:00* Test Item Value Reference Range Interpretation Comments Urine WBC (test code = 5821-4) NONE 0-5 [facility] PasoErythrocytes detection in urine sediment by light dfbaygygcn0456-98-21 14:20:00* Test Item Value Reference Range Interpretation Comments Urine RBC (test code = 16402-6) 0-5 0-5 [facility] PasoBacteria detection in urine sediment by light myeouzusgz2492-35-89 14:20:00* Test Item Value Reference Range Interpretation Comments Urine Bacteria (test code = 27490-9) RARE NONE [facility] PasoEpithelial cells detection in urine sediment by light elewpwviko8315-95-14 14:20:00* Test Item Value Reference Range Interpretation Comments Urine Epithelial Cells (test code = 23826-0) FEW NONE [facility] PasoPlasma globulin measurement (mass/volume) 2020-03-06 14:20:00* Test Item Value Reference Range Interpretation Comments Globulin (test code = 26907-9) 2.9 2.3-3.5 [facility] or plasma albumin/globulin mass coymn2894-24-74 14:20:00* Test Item Value Reference Range Interpretation Comments Albumin/Globulin Ratio (test code = 1759-0) 1.4 0.8-2.0 [facility] or plasma amylase measurement (enzymatic activity/volume)2020-03-06 14:20:00* Test Item Value Reference Range Interpretation Comments Amylase Level (test code = 1798-8) 3642 25-125 [facility] or plasma choriogonadotropin ( test) ijnbkdgci1184-46-36 14:20:00* Test Item Value Reference Range Interpretation Comments Human Chorionic Gonadotropin, Qual (test code = 2118-8) NEGATIVE NEGATIVE [facility]INALYSIS DYLSKPVG8026-14-04 06:57:00* Test Item Value Reference Range Interpretation [...] COMMENTS: repeat urinalysis Urine Source? Clean CatchURINALYSIS POJFQOMU1485-60-74 06:55:00* Test Item Value Reference Range Interpretation [...] HCG SERUM BETA (test code = HCG) 83672.0 mIU/mL 0-3 H Interfering substances present in [...] MONTHS AFTER CONCEPTION 10,000-100,000 MIU/ML BASIC METABOLIC NXCXN0215-91-19 05:42:00* Test Item Value Reference Range Interpretation [...] CA) 8.8 mg/dL 8.5-10.1 N HEPATIC FUNCTION [id number] 05:42:00* Test Item Value Reference Range Interpretation [...] reference range due to change in reagent. [id number] 05:42:00* Test Item Value Reference Range Interpretation Comments LIPASE (test code = LIP) 87 U/L 73.0-393.0 N [id number] 05:42:00* Test Item Value Reference Range Interpretation Comments TROPONIN-I (test code = TROPI) <0.015 ng/mL 0-0.045 N CBC W/O [id number] 05:40:00* Test Item Value Reference Range Interpretation [...] MPV) 10.4 fL 6.7-11.0 N CBC W/O [id number] 05:19:00* Test Item Value Reference Range Interpretation [...] = MPV) fL 6.7-11.0 - US ABDOMEN [id number] 04:57:00 Name: RANDALL DE LA CRUZ [facility] : 1990 Age/S: 28 / F [address] [facility] Unit #: [id number] Loc: [place] [address] Phys: Gertrudis Angel [employer] CONTROLLER Acct: [id number] Dis Date: Status: REG ER PHONE #: [phone] Exam Date: 07/29/2019 0430 FAX #: [phone] Reason: Epigastric EXAMS: CPT CODE: [id number] US ABDOMEN LTD 45900 EXAM: RIGHT UPPER QUADRANT ABDOMINAL ULTRASOUND INDICATION: [...] by Naomi Patiño M.D. on 07/29/2019 at 0457 Reported and signed by: Naomi ovalle M.D. PAGE 1 Signed Report (CONTINUED) Name: RANDALL DE LA CRUZ [facility] : 1990 Age/S: 28 / F [address] Unit #: [id number] Loc: [place] [address] Phy s: Gertrudis Angel [employer] CONTR[employer]LLER Acct: [id number] Dis Date: Status: REG ER PHONE #: [phone] Exam Date: 07/29/2019 0430 FAX #: [phone] Reason: Epigastric EXAMS: CPT CODE: [id number] ABDOMEN LTD 14633 <Continued> CC: Gertrudis Angel NP Technologist: Patricia Galvan RT(S), RDAZ Trnvab Date/Time: 07/29/2019 (045) [email or web address] Orig Print D/T: S: 07/29/2019 (0530) Probe: [...] #/LPF NONE Urine Source? Clean CatchBASIC METABOLIC [id number] 07:49:00* Test Item Value Reference Range Interpretation Comments SODIUM (test code = NA) 141 mmol/L 136-145 N POTASSIUM (test code = K) 2.8 mmol/L 3.5-5.1 LL Re sults called to [id number] by [email or web address] 07/25/19 0643Critical results verified and [...] CA) 8.6 mg/dL 8.5-10.1 N HCG SERUM [id number] 07:49:00* Test Item Value Reference Range Interpretation Comments HCG SERUM BETA (test code = HCG) 40252.0 mIU/mL 0-3 H Interfering substances present in [...] MIU/ML2-3 MONTHS AFTER CONCEPTION 10,000-100,000 MIU/ML URINALYSIS [id number] 06:47:00* Test Item Value Reference Range Interpretation [...] #/LPF FEW Urine Source? Clean CatchBASIC METABOLIC [id number] 06:43:00* Test Item Value Reference Range Interpretation Comments SODIUM (test code = NA) 141 mmol/L 136-145 N POTASSIUM (test code = K) 2.8 mmol/L 3.5-5.1 LL Re sults called to [id number] by EDU 07/25/19 0643Critical results verified and [...] CA) 8.6 mg/dL 8.5-10.1 N HCG SERUM [id number] 06:43:00* Test Item Value Reference Range Interpretation Comments HCG SERUM BETA (test code = HCG) mIU/mL 0-3 - US PREG AFTER [id number] 06:17:00 Name: RANDALL JAVIER [facility] : 1990 Age/S: 28 / F [address] [facility] Unit #: [id number] Loc: [place] [address] Phys: Dillan 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 Acct: [id number] Dis Date: Status: REG ER PHONE #: [phone] Exam Date: 07/25/2019 0557 FAX #: [phone] Reason: VAGINAL BLEEDING/PELVIC PAIN EXAMS: CPT CODE: [id number] US PREG AFTER TRI 20469 EXAM: LIMITED OBSTETRIC ULTRASOUND INDICATION: VAGINAL BLEEDING/PELVIC [...] 1 Signed Report (CONTINUED) Name: RANDALL JAVIER [facility] Piotr ast : 1990 Age/S: 28 / F [address] [facility] Unit #: [id number] Loc: [place] [address] Phys: Dillan Up Acct: [id number] Dis Date: Status: REG ER PHONE #: [phone] Exam Date: 07/25/2019 0557 FAX #: [phone] Reason: VAGINAL BLEEDING/PELVIC PAIN EXAMS: CPT CODE: [id number] US PREG AFTER 1ST TRI 22793 < Continued> at 0617 Reported and signed by: Naomi Patiño M.D. CC: Dillan Up Technologist: CARMEN AGUIRRE RDMS Trnscb Date/Time: 07/25/2019 (616) [email or web address] Orig Print D/T: S: 07/25/2019 (619) Probe: PAGE 2 Signed Report CBC W/O [id number] 06:08:00* Test Item Value Reference Range Interpretation [...]
[2020-04-05 06:37] LABS: EPITHELIAL CELLS,URINE FEW /LPF
--- NOTE | 2020-04-05 10:41 | Diagnostic Imaging Report ---
EXAM: Right upper quadrant abdominal ultrasound INDICATION: Right upper quadrant pain COMPARISON: CT abdomen/pelvis 04-05-2020. TECHNIQUE: Transverse and longitudinal images of the right upper quadrant abdomen were obtained FINDINGS: Limited examination secondary to bowel gas. Liver: Size: 14.8 cm in the right midclavicular line, normal Appearance: Normal echogenicity, smooth contour Mass: No focal masses Gallbladder: No distension, pericholecystic fluid, or reported sonographic Gallagher's sign. Cholelithiasis. Gallbladder wall measures 0.4 cm. Bile Ducts: Intrahepatic Ducts: No dilatation Extrahepatic Ducts: Common bile duct measures 0.5 cm, no dilatation Pancreas: Visualized portions of the pancreatic head, neck and proximal body are normal. Kidney: The right kidney measures 12.0 cm without evidence of hydronephrosis or stone. Vessels: Aorta: Visualized portions are normal Inferior Vena Cava: Visualized portions are normal Main Portal Vein: 0.9 cm, normal size with hepatopetal flow. Free Fluid: No evidence of ascites. IMPRESSION: Partially decompressed thickened gallbladder with associated gallstones. No pericholecystic fluid and negative reported sonographic Gallagher sign. The findings are equivocal for cholecystitis. Suggest clinical correlation. HIDA scan may be considered if clinically indicated. Signed by: Dr. Jose Olvera MD on 04/05/2020 10:38 AM
[2020-04-05] MEDS ORDERED: SODIUM CHLORIDE 0.9% 1000ML 1,000 ML IV SCH (13:15)
--- NOTE | 2020-04-05 14:35 | Consultation ---
DATE OF CONSULTATION: 04/05/2020 HISTORY OF PRESENT ILLNESS: The patient is a 29-year-old female, who presents with complaints of epigastric and right upper quadrant abdominal pain. Her pain is very severe last night. She came to the emergency room, evaluation revealed gallstones and thickened gallbladder wall. She says her pain is somewhat less now. There are no symptoms of jaundice. She has had similar pains in the past. She says this is the fourth or fifth time she has had pain. PAST MEDICAL HISTORY: Otherwise, unremarkable. She has no chronic medical problems. PAST SURGICAL HISTORY: Only previous surgery is section. ALLERGIES: SHE HAS ALLERGY TO ASPIRIN. MEDICATIONS: There were no current medications. FAMILY HISTORY: Noncontributory. SOCIAL HISTORY: The patient does not smoke cigarettes or drink alcohol. REVIEW OF SYSTEMS: As stated above, otherwise was negative. PHYSICAL EXAMINATION: GENERAL: The patient is awake and alert, in no distress. VITAL SIGNS: Normal. HEENT: The sclerae is not icteric. NECK: Supple. No masses. LUNGS: Equal breath sounds and clear bilaterally. CARDIAC: Regular rate and rhythm, with no murmur. ABDOMEN: Soft. There is mild epigastric tenderness. There is no mass. There were no signs of peritonitis. No organomegaly. EXTREMITIES: Have no edema. Pulses are palpable. NEUROLOGIC: Intact. ASSESSMENT: This is a 29-year-old female with findings suggestive of [id number] cholecystitis, cholelithiasis. She will benefit from cholecystectomy. PLAN: To schedule for tomorrow. Procedure was explained to the patient including risks, benefits, and alternatives. She understands she has had the opportunity to ask questions. Thank you for asking me to see Ms. Gibson. MD JACOBO Bernabe/ZACK /[id number]
[2020-04-05] MEDS: PIPER-TAZ 3.375 GM 50 ML IV SCH ×2 (16:12→22:53)
[2020-04-05] MEDS: FAMOTIDINE 20 MG/2 ML VIAL IV SCH (17:00)
[2020-04-05] MEDS ORDERED: HYDRALAZINE HCL 20 MG/ML VIAL IV PRN (19:30)
--- NOTE | 2020-04-05 20:30 | NUR ---
PATIENT IS RESTING IN BED AOX4, NO SIGNS OF DISTRESS NOTED. IV FLUIDS ARE RUNNING AT ORDERED RATE AND PATIENT VOICES PAIN AT A LEVEL OF 1 AND WAS PREVIOUSLY MEDICATED ORDERED. PATIENT IS AWARE OF NPO ORDER AFTER MIDNIGHT FOR PROCEDURE THE NEXT DAY, AND CONSENT WILL BE SIGNED. BED IS IN LOWEST POSITION, BOTH SIDE RAILS ARE UP, CALL LIGHT IS WITHIN EASY REACH, WILL CONTINUE TO MONITOR.
[2020-04-05] MEDS: ONDANSETRON HCL INJ 2MG/ML 2ML 2 MG/ML VIAL IV PRN (21:19)
[2020-04-06] VITALS (7 sets, daily range): BP systolic 110–137; BP diastolic 70–87
[2020-04-06 05:49] LABS: BASOPHILS % 0.8 % (0.0-1.0); EOSINOPHILS # (AUTO) 0.2 (0.0-0.4); HEMATOCRIT 37.2 % (34.2-44.1); LYMPHOCYTES # (AUTO) 1.1 (1.0-3.2); LYMPHOCYTES % 28.3 % (18.0-39.1); MEAN CORPUSCULAR HEMOGLOBIN 27.2 pg (28-32); MEAN CORPUSCULAR HGB CONC 32.3 g/dL (31-35); MEAN CORPUSCULAR VOLUME 84.4 fL (81-99); MONOCYTES # (AUTO) 0.4 (0.2-0.8); MONOCYTES % 10.9 % (4.4-11.3); NEUTROPHILS # (AUTO) 2.2 (2.1-6.9); NEUTROPHILS % 55.7 % (38.7-80.0); PLATELET COUNT 164 x10e3/uL (140-360); RED BLOOD COUNT 4.41 x10e6/uL (3.6-5.1); RED CELL DISTRIBUTION WIDTH 14.1 % (11.7-14.4)
[2020-04-06] MEDS: PIPER-TAZ 3.375 GM 50 ML IV SCH ×2 (06:01→12:27)
[2020-04-06 06:32] LABS: ALANINE AMINOTRANSFERASE 1107 IU/L (0-55); ALBUMIN 3.3 g/dL (3.5-5.0); ALBUMIN/GLOBULIN RATIO 1.4 (0.8-2.0); ALKALINE PHOSPHATASE 177 IU/L (40-150); ANION GAP 10.3 mmol/L (8-16); BLOOD UREA NITROGEN 7 mg/dL (7-26); BUN/CREATININE RATIO 11 (6-25); CALCIUM 8.2 mg/dL (8.4-10.2); CARBON DIOXIDE 21 mmol/L (22-29); CHLORIDE 112 mmol/L (98-107); CREATININE, SERUM 0.62 mg/dL (0.57-1.11); EST GLOMERULAR FILTRATION RATE > 60 ML/MIN (60-); GLUCOSE 86 mg/dL (74-118); MAGNESIUM 1.8 MG/DL (1.3-2.1); POTASSIUM 3.3 mmol/L (3.5-5.1); SODIUM 140 mmol/L (136-145)
[2020-04-06] MEDS ORDERED: BUPIVACAINE HCL 0.5% INJ 30 ML VIAL INJ ONE (06:43)
[2020-04-06] MEDS ORDERED: SODIUM CHLORIDE 0.9% 1000ML 1,000 ML IV SCH (07:45)
[2020-04-06] MEDS ORDERED: ONDANSETRON HCL INJ 2MG/ML 2ML 2 MG/ML VIAL IV PRN (07:45)
[2020-04-06] MEDS ORDERED: FENTANYL CITRATE/PF 100MCG/2 ML INJ ONE (08:21)
[2020-04-06] MEDS ORDERED: ONDANSETRON HCL INJ 2MG/ML 2ML 2 MG/ML VIAL ONE (08:25)
[2020-04-06] MEDS ORDERED: METOCLOPRAMIDE HCL 10 MG/2ML VIAL ONE (08:25)
--- NOTE | 2020-04-06 08:35 | NUR ---
BACK FROM RECOVERY. ALERT BUT SLEEPY. EASILY AROUSED. IV TO LEFT AC PATIENT. VSS. DIET ORDERED
[2020-04-06] MEDS ORDERED: HYDROMORPHONE 1MG/1ML INJ ONE (08:38)
[2020-04-06] MEDS ORDERED: TYLENOL WITH C1 EACH PO (09:08)
[2020-04-06] MEDS ORDERED: CEFDINIR300 MG PO (09:09)
[2020-04-06] MEDS ORDERED: POTASSIUM CHLORIDE 20 MEQ TAB CR PO ONE (09:15)
--- NOTE | 2020-04-06 09:38 | Operative Report ---
DATE OF PROCEDURE: 04/06/2020 SURGEON: Huey Conde MD PREOPERATIVE DIAGNOSES: Acute on chronic cholecystitis and cholelithiasis. POSTOPERATIVE DIAGNOSES: Acute on chronic cholecystitis and cholelithiasis. PROCEDURES: Diagnostic laparoscopy, laparoscopic cholecystectomy. 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 ANESTHESIA: General endotracheal. INDICATIONS AND FINDINGS: The patient is a 29-year-old female, who presents with complaints of severe epigastric right upper quadrant abdominal pain. Workup revealed gallstones with stone in the gallbladder neck. cystic duct. Gallbladder was edematous and distended containing multiple small stones. Cystic duct was about 3 mm in diameter. Common bile duct was about 5 mm in diameter. Liver, stomach, lower abdomen all appeared normal. TECHNIQUE: After adequate general endotracheal anesthesia, the patient was in supine position, the abdomen was prepped and draped in sterile fashion with ChloraPrep solution. Skin in the umbilicus was infiltrated with 0.5% Marcaine. Incision was made in the umbilicus. Abdominal wall was elevated and Veress needle was introduced. Pneumoperitoneum was then created. A 10 mm trocar and cannula were then passed through this wound. Laparoscopic camera was introduced. Initial laparoscopy revealed the gallbladder to be distended and edematous. Liver, stomach, lower abdomen all appeared normal. A 10 mm trocar and cannula were placed in the epigastrium and two 5 mm trocars and cannulas were placed in right upper quadrant. These were placed under direct vision. Fundus of the gallbladder was grasped, retracted superiorly, neck of the gallbladder was grasped, retracted laterally, peritoneum over the neck of the gallbladder was incised, the gallbladder and cystic duct junction were dissected free. The cystic artery was also dissected free. The neck of the gallbladder completely dissected free. Cystic duct was divided between hemoclips with 3 clips common bile duct side. There was a stone impacted in the cystic duct, which was removed. The cystic artery was also divided between hemoclips close to the gallbladder. The gallbladder was dissected free from the liver using scissors and electrocautery. Once it was entirely free, it was placed into an Endopouch and brought out through the epigastric cannula that contained multiple small stones. Gallbladder bed was inspected for hemostasis. There was one point which was bleeding, which was controlled with electrocautery. It was irrigated with saline, all fluid aspirated and inspected for hemostasis, which was seen to be adequate. Instruments and cannulas were removed. Pneumoperitoneum was evacuated. Wounds were then closed, fascia in the umbilical and epigastric wound closed with 0 Vicryl, skin to all wounds closed with jeimy. Sterile dressings were applied to each wound. The patient tolerated the procedure well. Estimated blood loss was 20 mL. There were no complications. All counts were correct. The patient was taken to the recovery room in satisfactory condition. MD JACOBO Bernabe/MODL /[id number]
[2020-04-06] MEDS: ONDANSETRON HCL INJ 2MG/ML 2ML 2 MG/ML VIAL IV PRN (11:00)
[2020-04-06] MEDS: HYDROCODONE/APAP 5MG-325MG TAB PO PRN ×2 (11:00→15:39)
[2020-04-06] MEDS: FAMOTIDINE 20 MG/2 ML VIAL IV SCH ×2 (11:36→16:45)
[2020-04-06 15:32] LABS: ALANINE AMINOTRANSFERASE 1083 IU/L (0-55); ALBUMIN 3.7 g/dL (3.5-5.0); ALBUMIN/GLOBULIN RATIO 1.2 (0.8-2.0); ALKALINE PHOSPHATASE 182 IU/L (40-150); ANION GAP 14.3 mmol/L (8-16); BLOOD UREA NITROGEN 8 mg/dL (7-26); BUN/CREATININE RATIO 11 (6-25); CALCIUM 8.9 mg/dL (8.4-10.2); CARBON DIOXIDE 21 mmol/L (22-29); CHLORIDE 106 mmol/L (98-107); CREATININE, SERUM 0.71 mg/dL (0.57-1.11); EST GLOMERULAR FILTRATION RATE > 60 ML/MIN (60-); GLUCOSE 138 mg/dL (74-118); POTASSIUM 4.3 mmol/L (3.5-5.1); SODIUM 137 mmol/L (136-145)
--- NOTE | 2020-04-06 20:19 | Discharge Summary ---
ADMISSION DIAGNOSES: 1. Cholelithiasis with cholecystitis. 2. Urinary tract infection, present on admission. DISCHARGE DIAGNOSES: 1. Cholelithiasis with cholecystitis. 2. Urinary tract infection, present on admission. HISTORY: None. SURGICAL HISTORY: with new cholecystectomy. FAMILY HISTORY: Noncontributory. SOCIAL HISTORY: Noncontributory. HOSPITAL COURSE: A 29-year-old female with no past medical history, admits with complaints of right upper quadrant abdominal pain which was intermittent and sharp that began yesterday. She had associated nausea and vomiting. On admission, ultrasound of the gallbladder showed partially decompressed thickened gallbladder with associated gallstones. CT of the abdomen and pelvis showed findings suggestive of cholecystitis. The patient was started on Zosyn, IV fluids, and kept n.p.o. Surgery was consulted and patient was taken for a laparoscopic cholecystectomy the following day. The patient tolerated the procedure well and on the same day she is tolerating a regular diet and passing gas. She will discharge home with prescriptions for Tylenol 3 and Omnicef for possible UTI. The patient will follow up with primary care in 1 to [address] Conde in one week. The patient understands discharge instructions and agrees to plan. Vital signs stable. The patient is Afebrile. Dictated by Xiomy Montes NP MD CHANDANA Mcpherson/MODL /[id number]
== END 2020-04-06 17:18 | disposition home or self-care (01) ==
LOC: ER 19:35 → ERHOLD 04-05 03:00 → MED/SURG2 04-05 17:42
PROVIDERS: ADMIT Internal Medicine; ATTEND Internal Medicine
DX: K80.12 Calculus of gallbladder with acute and chronic cholecystitis without obstruction (principal); N39.0 Urinary tract infection, site not specified; R74.0 Nonspecific elevation of levels of transaminase and lactic acid dehydrogenase [LDH]; Z88.6 Allergy status to analgesic agent; K56.3 Gallstone ileus
CPT/HCPCS: 36415 ×2; 47562; 74177; 76705; 80053 ×2; 81001; 81025; 83690; 83735; 85025 ×2; 87086; 87635; 88304; 99284; G0378 ×2; J1170; J2270 ×2; J2405 ×2; J2543 ×2; J2765; J3010; J7030 ×2; Q9967

== ENCOUNTER 2020-04-09 00:15 | Inpatient (IN) | payer OTHER ==
[~2020-04-09] VITALS: Ht 168.9 cm; Wt 65.8 kg
[2020-04-09] VITALS (9 sets, daily range): BP systolic 109–126; BP diastolic 67–88
[~2020-04-09 00:15] MED LIST: CEFDINIR300 MG PO; TYLENOL WITH C1 EACH PO
--- OUTSIDE RECORDS SUMMARY | 2020-04-09 00:17 | XMS REPORT | Continuity of Care Document ---
Author Author [facility] t Organization [facility] Address [address] [place] [address] Phone Unavailable Care Team Providers Care [employer] Project Manager Name Role Phone NO, PCP PCP Unavailable RYAN URENA Attphys Unavailable MONA JULIAN Attphys Unavailable Eunice Nguyen CNM Attphys 1Jovan Rn [facility] Attphys Unavailable Porsha Jules MD Attphys Doctor Unassigned, Name No Attphys Unavailable Tereso Wayne CNM Attphys , [facility] Attphys Unavailable RYAN URENA Admphys Unavailable MONA JULIAN Admphys Unavailable Porsha Jules MD Admphys Payers Payer Name Policy Type Policy Number Effective Date Expiration Date S ource Problems Condition Name Condition Details Condition Category Status Onset Date Resolution Date Last Treatment Date Treating Clinician Comments Source Pancreatitis Problem Active [facility] Cholecystitis Problem Active [facility] Allergies, Adverse Reactions, Alerts Allergy Name Allergy Type Status Severity Reaction(s) Onset Date Inacti ve Date Treating Clinician Comments Source Aspirin Allergy to substance Active Moderate 2020-04-04 00:00:00 [facility] Aspirin Allergy to substance Active Severe SWELLING IN TON YESSI AND THROAT 2020-03-06 00:00:00 [facility] No Known Allergies DA Active U 2019-07-25 00:00:00 [facility] aspirin DA Active [place] 2019-07-25 00:00:00 [facility] Social History Social Habit Start Date Stop Date Quantity Comments Source Sex Assigned At 1990 00:00:00 1990 00:00:00 Female [facility] Medications Ordered Medication Name Filled Medication Name Start Date Stop Da te Current Medication? Ordering Clinician Indication Dosage Frequency Signature (SIG) Comments Components Source Cefdinir (Omnicef) 300 Mg CAPSULE Cefdinir (Omnicef) 300 Mg CAPSULE 2020-04-06 09:09:00 Yes 300 Twice A Day [facility] Acetaminophen With Codeine (Tylenol With Codeine #3 Ta blet) 1 Each TABLET Acetaminophen With Codeine (Tylenol With Codeine #3 Tablet) 1 Each TABLET 2020-04-06 09:08:00 Yes 300 Every 8 Hours [facility] Famotidine (Pepcid) 20 Mg TABLET Famotidine (Pepcid) 20 Mg T ABLET 2020-03-10 08:52:00 Yes 20 Twice A Day [facility] Ondansetron Hcl (Zofran*) 4 Mg TABLET Ondansetron Hcl (Zofra n*) 4 Mg TABLET 2020-03-10 08:52:00 Yes 4 Every 4 Hour s as needed for Nausea/Vomiting [facility] Vital Signs Vital Name Observation Time Observation Value Comments Source Body Temperature 2020-04-06 16:30:00 97.6 [degF] [facility] Weight 2020-04-05 18:12:00 139 [lb_av] [facility] BMI (Body Mass Index) 2020-04-05 18:12:00 23.9 kg/m2 [facility] Body Temperature 2020-03-10 11:46:00 97.7 [degF] [facility] Weight 2020-03-08 00:47:00 159.56 [lb_av] [facility] BMI (Body Mass Index) 2020-03-08 00:47:00 25.4 kg/m2 [facility] Procedures Procedure Date / Time Performed Performing Clinician Richard anthony Computed tomography of abdomen and pelvis with contrast 00:00:00 [facility] US Gallbladder 2020-04-05 00:00:00 [facility] US Gallbladder 2020-03-10 00:00:00 [facility] Magnetic resonance cholangiopancreatography (MRCP) wit hout contrast 2020-03-07 00:00:00 [facility] CT of abdomen and pelvis without contrast 2020-03-06 00:00:00 [facility] Computed tomography of abdomen with contrast 2020-03-06 00:00:00 [facility] Plan of Care Planned Activity Planned Date Details Comments Source Instructions Cholelithiasis [facility] Instructions Cholelithiasis [facility] Encounters Start Date/Time End Date/Time Encounter Type Admission Type [facility] Care Department Encounter ID Source 2020-04-05 03:00:00 2020-04-06 17:18:00 Discharged Inpatient (obs) 1 RYAN URENA [facility] [id number] [facility] 2020-03-06 17:55:00 2020-03-10 14:24:00 Discharged Inpatient 1 MONA JULIAN [facility] [id number] [facility] 2020-01-09 10:52:18 2020-01-09 11:47:42 Routine Visit Yeny Nguyen [facility] [id number] 2019-12-26 10:04:52 2019-12-26 10:45:22 Nurse Visit 1, Christopher -Rmchp Jovan Rodríguez [facility] [id number] 2019-12-19 06:31:00 2019-12-21 13:20:00 Hospital Encounter Charly Jules [facility] [id number] 2019-12-19 00:00:00 2019-12-19 00:00:00 Orders Only D juanjo Unassigned, [place] [facility] [id number] 2019-12-17 13:16:43 2019-12-17 14:01:45 Routine Visit Viviana Wayne [facility] [id number] 2019-12-13 15:34:16 2019-12-13 16:37:54 Routine Visit Viviana Wayne [facility] [id number] 2019-07-18 16:05:34 2019-07-18 16:50:45 Routine Visit Yeny Nguyen [facility] [id number] 2019-06-19 15:28:12 2019-06-19 16:04:29 Routine Visit Yeny Nguyen [facility] [id number] 2019-06-11 15:27:50 2019-06-11 15:54:27 Town Manager Visit 1 , [facility] Room [facility] [id number] Results Test Description Test Time Test Comments Results Result Comments Source Serum or plasma sodium measurement (moles/volume) 2020-04-06 15:00:00 Test Item Sodium Level (test code = 2951-2) 137 136-145 [facility] potassium [facility] (moles/volume)2020-04-06 15:00:00* Test Item Value Reference Range Interpretation Comments Potassium Level (test code = 2823-3) 4.3 3.5-5.1 [facility] chloride measurement (moles/volume)2020-04-06 15:00:00* Test Item Value Reference Range Interpretation Comments Chloride Level (test code = 2075-0) 106 98-107 [facility] or plasma carbon dioxide, total measurement (moles/volume)2020-04-06 15:00:00* Test Item Value Reference Range Interpretation Comments Carbon Dioxide Level (test code = 2028-9) 21 22-29 [facility] or plasma anion [id number] 15:00:00* Test Item Value Reference Range Interpretation Comments Anion Gap (test code = 61390-7) 14.3 8-16 [facility] or plasma urea nitrogen measurement (mass/volume)2020-04-06 15:00:00* Test Item Value Reference Range Interpretation Comments Blood Urea Nitrogen (test code = 3094-0) 8 7-26 [facility] plasma creatinine measurement (mass/volume)2020-04-06 15:00:00* Test Item Value Reference Range Interpretation Comments Creatinine (test code = 2160-0) 0.71 0.57-1.11 [facility] or plasma urea nitrogen/creatinine mass [id number] 15:00:00* Test Item Value Reference Range Interpretation Comments BUN/Creatinine Ratio (test code = 3097-3) 11 6-25 [facility] Lake[facility]ated glomerular filtration rate (GFR) vwjuqdmxdxdjb7940-38-70 15:00:00* Test Item Value Reference Range Interpretation Comments Estimat Glomerular Filtration Rate (test code = 982738655) > 60 >60 Ranges were taken from the National Kidney Disease Education Program and the [facility] Kidney Foundation literature.Reference ranges:60 or greater: Jywjhk82-88 ( for 3 consecutive months): Chronic kidney disease 15 or less: Kidney failureH[facility] LakeGlucose gomsdyymqtm5323-96-92 15:00:00* Test Item Value Reference Range Interpretation Comments Glucose Level (test code = ROD4008) 138 74-118 [facility] or plasma calcium measurement (mass/volume)2020-04-06 15:00:00* Test Item Value Reference Range Interpretation Comments Calcium Level (test code = 53205-8) 8.9 8.4-10.2 [facility] or plasma total bilirubin measurement (mass/volume)2020-04-06 15:00:00* Test Item Value Reference Range Interpretation Comments Total Bilirubin (test code = 1975-2) 1.4 0.2-1.2 [facility] LakeFluoroscopic procedure less than one hour obatxisq2324-21-67 15:00:00* Test Item Value Reference Range Interpretation Comments Aspartate Amino Transf (AST/SGOT) (test code = Aspartate Amino Transf (AST/SGOT)) 618 5-34 [facility]um or plasma alanine aminotransferase measurement (enzymatic activity/volume)2020-04-06 15:00:00* Test Item Value Reference Range Interpretation Comments Alanine Aminotransferase (ALT/SGPT) (test code = 1742-6) 1083 0-55 [facility] or plasma protein measurement (mass/volume)2020-04-06 15:00:00* Test Item Value Reference Range Interpretation Comments Total Protein (test code = 2885-2) 6.7 6.5-8.1 [facility] or plasma albumin measurement (mass/volume)2020-04-06 15:00:00* Test Item Value Reference Range Interpretation Comments Albumin (test code = 1751-7) 3.7 3.5-5.0 [facility] LakePlasma globulin measurement (mass/volume) 2020-04-06 15:00:00* Test Item Value Reference Range Interpretation Comments Globulin (test code = 49394-4) 3.0 2.3-3.5 [facility]um or plasma albumin/globulin mass [id number] 15:00:00* Test Item Value Reference Range Interpretation Comments Albumin/Globulin Ratio (test code = 1759-0) 1.2 0.8-2.0 [facility] or plasma alkaline phosphatase measurement (enzymatic activity/volume)2020-04-06 15:00:00* Test Item Value Reference Range Interpretation Comments Alkaline Phosphatase (test code = 6768-6) 182 40-150 [facility] Lake[facility] leukocytes automated count (number/volume)2020-04-06 04:50:00* Test Item Value Reference Range Interpretation Comments White Blood Count (test code = 6690-2) 3.96 4.8-10.8 [facility] LakeBlood erythrocytes automated count (number/volume)2020-04-06 04:50:00* Test Item Value Reference Range Interpretation Comments Red Blood Count (test code = 789-8) 4.41 3.6-5.1 [facility] Lake[facility] hemoglobin measurement (moles/volume)2020-04-06 04:50:00* Test Item Value Reference Range Interpretation Comments Hemoglobin (test code = 86194-8) 12.0 12.0-16.0 [facility] LakeAutomated blood hematocrit (volume fraction)2020-04-06 04:50:00* Test Item Value Reference Range Interpretation Comments Hematocrit (test code = 4544-3) 37.2 34.2-44.1 [facility] LakeAutomated erythrocyte mean corpuscular jnsilx3213-17-93 04:50:00* Test Item Value Reference Range Interpretation Comments Mean Corpuscular Volume (test code = 787-2) 84.4 81-99 [facility] LakeAutomated erythrocyte mean corpuscular hemoglobin (mass per erythrocyte)2020-04-06 04:50:00* Test Item Value Reference Range Interpretation Comments Mean Corpuscular Hemoglobin (test code = 785-6) 27.2 28-32 [facility] LakeAutomated erythrocyte mean corpuscular hemoglobin concentration measurement (mass/volume)2020-04-06 04:50:00* Test Item Value Reference Range Interpretation Comments Mean Corpuscular Hemoglobin Concent (test code = 786-4) 32.3 31-35 [facility] LakeRDW XkoFn-Vje8219-91-31 04:50:00* Test Item Value Reference Range Interpretation Comments Red Cell Distribution Width (test code = 99256-5) 14.1 11.7 -14.4 [facility] LakeAutomated blood platelet count (count/volume)2020-04-06 04:50:00* Test Item Value Reference Range Interpretation Comments Platelet Count (test code = 777-3) 164 140-360 [facility] LakeAutomated blood segmented neutrophil count as percentage of total lqqtfrnelu8900-07-77 04:50:00* Test Item Value Reference Range Interpretation Comments Neutrophils (%) (Auto) (test code = 39116-3) 55.7 38.7-80.0 [facility] LakeAutomated blood lymphocyte count as percentage ot total jwxlselahz2029-58-26 04:50:00* Test Item Value Reference Range Interpretation Comments Lymphocytes (%) (Auto) (test code = 736-9) 28.3 18.0-39.1 [facility] LakeAutomated blood monocyte count as percentage of total gtdlknmmof7772-61-50 04:50:00* Test Item Value Reference Range Interpretation Comments Monocytes (%) (Auto) (test code = 5905-5) 10.9 4.4-11.3 [facility] LakeAutomated blood eosinophil count as percentage of total ewpgrcsddf4717-78-43 04:50:00* Test Item Value Reference Range Interpretation Comments Eosinophils (%) (Auto) (test code = 713-8) 4.0 0.0-6.0 [facility] LakeAutomated blood basophil count as percentage of total kucbmevpoz7936-73-34 04:50:00* Test Item Value Reference Range Interpretation Comments Basophils (%) (Auto) (test code = 706-2) 0.8 0.0-1.0 [facility] LakeFluoroscopic procedure less than one hour jhabrivl4685-83-43 04:50:00* Test Item Value Reference Range Interpretation Comments IM GRANULOCYTES % (test code = IM GRANULOCYTES %) 0.3 0.0- 1.0 [facility] LakeAutomated blood neutrophil count 2020-04-06 04:50:00* Test Item Value Reference Range Interpretation Comments Neutrophils # (Auto) (test code = 751-8) 2.2 2.1-6.9 [facility] Lake[facility] lymphocytes count (number/volume) 2020-04-06 04:50:00* Test Item Value Reference Range Interpretation Comments Lymphocytes # (Auto) (test code = 90230-1) 1.1 1.0-3.2 [facility] LakeBlood monocytes automated count (number/volume)2020-04-06 04:50:00* Test Item Value Reference Range Interpretation Comments Monocytes # (Auto) (test code = 742-7) 0.4 0.2-0.8 [facility] LakeAutomated blood eosinophil count 2020-04-06 04:50:00* Test Item Value Reference Range Interpretation Comments Eosinophils # (Auto) (test code = 711-2) 0.2 0.0-0.4 [facility] LakeAutomated blood basophil count (count/volume)2020-04-06 04:50:00* Test Item Value Reference Range Interpretation Comments Basophils # (Auto) (test code = 704-7) 0.0 0.0-0.1 [facility] LakeFluoroscopic procedure less than one hour hikvvxij4551-13-25 04:50:00* Test Item Value Reference Range Interpretation Comments Absolute Immature Granulocyte (auto (izabel t code = Absolute Immature Granulocyte (auto) 0.01 0-0.1 [facility] Paso[facility]um or plasma magnesium measurement (mass/volume)2020-04-06 04:50:00* Test Item Value Reference Range Interpretation Comments Magnesium Level (test code = 89257-1) 1.8 1.3-2.1 [facility] DYRBDIEBIIR5853-46-02 10:25:00 [facility] [address] [address] Patient Name: RANDALL JAVIER MR #: [id number] : 1990 Age/Sex: 29/F Req #: [id number] Adm Physician: RYAN URENA MD Ordered by: YEHUDA GOMEZ DO Report #: [id number] Location: [facility] Room/Bed: [address] [address] Procedure: [id number] US/US GALLBLADDER Exam Date: 04/05/20 Exam Time: 910 REPORT STATUS: Signed EXAM: Right up per quadrant abdominal ultrasound INDICATION: Right upper quadrant pain COMPARISON: CT abdomen/pelvis 04-05-2020. TECHNIQUE: Transverse and longitudi nal images of the right upper quadrant abdomen were obtained FINDINGS: Limited examination secondary to bowel gas. Liver: Size: 14.8 cm in the right midclavicular line, normal Appearance: Normal echogenicity, smooth contour Mass: No focal masses Gallbladder: No distension, pericholecystic fluid, or reported sonographic Gallagher's sign. Cholelithiasis. Gallbladder wal l measures 0.4 cm. Bile Ducts: Intrahepatic Ducts: No dilatation Extra hepatic Ducts: Common bile duct measures 0.5 cm, no dilatation Pancreas: Visualized portions of the pancreatic head, neck and proximal body are normal. Kidney: The right kidney measures 12.0 cm without evidence of hydronephrosis or stone. Vessels: Aorta: Visualized portions are normal Inferior V samanta Cava: Visualized portions are normal Main Portal Vein: 0.9 cm, normal size with hepatopetal flow. Free Fluid: No evidence of ascites. IMPRESS ION: Partially decompressed thickened gallbladder with associated gallstones. No pericholecystic fluid and negative reported sonographic Gallagher sign. The findings are equivocal for cholecystitis. Suggest clinical correlation. HIDA s can may be considered if clinically indicated. Signed by: Porsha Mistry on 04/05/2020 10:38 AM Dictated By: JUANIS FLORES MD 1038 Transcribed By: DENISSE on 04/05/20 1038 COPY TO: YEHUDA OGMEZ DO CT ABDOMEN/PELVIS [id number] 02:04:[address] [address] Patient Name: RANDALL JAVIER MR #: [id number] : 1990 Age/Sex: 29/F Req #: [id number] Adm Physician: Ordered by: YEHUDA GOMEZ DO Report #: [id number] Location: ER Room/Bed: Procedure: [id number] CT/CT ABDOMEN/PELVIS W Exam Date: 04/05/20 Exam Time: 0120 REPORT STATUS: Signed EXAM: CT Abdomen and Pelvis WITH contrast INDICATION: Right upper quadrant pain COMPARISON: None. TECHNIQUE: Abdomen and pelvis were scanned utilizing a mu ltidetector helical scanner from the lung base to the pubic symphysis after ad ministration of IV contrast. Coronal and sagittal reformations were obtained. Routine protocol was performed. Scan was performed when during portal venous p hase. IV CONTRAST: 100 mL of Isovue 370 ORAL CONTRAST: None COMPLICATIONS: None RADIATION DOSE: Total DLP: 251 mG y*cm Estimated effective dose: (DLP x 0.015 x size factor) mSv CTD Ivol has been reviewed. It is below the limits set by the Radiation Protocol C ommittee (RP). Dose modulation, iterative reconstruction, and/or weight based adjustment of the mA/kV was utilized to reduce the radiation dose to as low as reasonably achievable. FINDINGS: LINES and TUBES: None. LOWER THORAX: Unremarkable HEPATOBILIARY: Subtle 1.2 cm hyperdensity in h epatic segment 7 (series 2 image 14). Subtle tram track hypodensities about th e intrahepatic portal veins can be due to biliary ductal dilation or portal ed ramona. No focal hepatic lesions. No biliary ductal dilation. GALLBLADDER: Hydropic gallbladder over 9 cm in long axis, and mildly thickened and heteroge neous gallbladder wall. Subtle pericholecystic fat stranding. No radiopaque st ones or sludge. SPLEEN: No splenomegaly. PANCREAS: No focal masses or ductal dilatation. ADRENALS: No adrenal nodules KIDNEYS/URETERS : Kidneys enhance symmetrically. No hydronephrosis. No cystic or solid mass l esions. No stones. GI TRACT: No abnormal distention, wall thickening, or e vidence of bowel obstruction. Appendix is normal. PELVIC ORGANS/ALEXANDER DDER: Probable septate uterus. LYMPH NODES: No lymphadenopathy. VE SSELS: Unremarkable. PERITONEUM / RETROPERITONEUM: No free air or fluid. BONES: Unremarkable. SOFT TISSUES: Pfannenstiel incision scar intact. IMPRESSION: CT findings suggestive of cholecystitis. Re commend right upper quadrant ultrasound. Subtle tram track hypodensities about the intrahepatic portal veins can be due to biliary ductal dilation or portal edema can also be evaluated with right upper quadrant ultrasound. A 1.2 cm hyperdensity in hepatic segment 7 is likely benign, possibly focal nodular hyperplasia, adenoma, or hemangioma. Attention on right upper quadrant ultraso und to hepatic segment 7. Signed by: Jean Pierre Yeung DO on 04/05/2020 2:16 A M Dictated By: JEAN PIERRE YEUNG DO 5 Transcribed By: DENISSE on 04/05/20215 COPY T O: YEHUDA GOMEZ DO Urine color [id number] 23:00:00* Test Item Value Reference Range Interpretation Comments Urine Color (test code = 5778-6) YELLOW YELLOW [facility] Lake[facility]rine [id number] 23:00:00* Test Item Value Reference Range Interpretation Comments Urine Clarity (test code = 31037-0) CLEAR CLEAR [facility] Paso[facility] gravity of Urine by Test strip 2020-04-04 23:00:00* Test Item Value Reference Range Interpretation Comments Urine Specific [place] (test code = 5811-5) 1.025 1.010-1.02 5 [facility] Lake[facility] pH measurement by automated test [id number] 23:00:00* Test Item Value Reference Range Interpretation Comments Urine pH (test code = 70176-2) 7 5-7 [facility] Lake[facility] leukocyte esterase detection by zlmpzxft8627-27-42 23:00:00* Test Item Value Reference Range Interpretation Comments Urine Leukocyte Esterase (test code = 5799-2) NEGATIVE NEGATIVE [facility] Lake[facility]rine nitrite vjmstsqah0913-96-48 23:00:00* Test Item Value Reference Range Interpretation Comments Urine Nitrite (test code = 71301-9) NEGATIVE NEGATIVE [facility] Lake[facility] protein measurement by test strip (mass/volume)2020-04-04 23:00:00* Test Item Value Reference Range Interpretation Comments Urine Protein (test code = 5804-0) NEGATIVE NEGATIVE [facility] Lake[facility] glucose kfmhfwahv7927-63-43 23:00:00* Test Item Value Reference Range Interpretation Comments Urine Glucose (UA) (test code = 2349-9) NEGATIVE NEGATIVE [facility] Lake[facility] ketones detection by automated test [id number] 23:00:00* Test Item Value Reference Range Interpretation Comments Urine Ketones (test code = 66617-8) NEGATIVE NEGATIVE [facility] Lake[facility]rine urobilinogen measurement by test strip (mass/volume)2020-04-04 23:00:00* Test Item Value Reference Range Interpretation Comments Urine Urobilinogen (test code = 74419-3) 0.2 0.2-1 [facility] total bilirubin measurement (mass/volume)2020-04-04 23:00:00* Test Item Value Reference Range Interpretation Comments Urine Bilirubin (test code = 1978-6) NEGATIVE NEGATIVE [facility] Lake[facility] erythrocytes sfnoznyhe7118-62-88 23:00:00* Test Item Value Reference Range Interpretation Comments Urine Blood (test code = 85278-2) TRACE NEGATIVE [facility] LakeAutomated urine sediment leukocyte count by microscopy (number/high power field)2020-04-04 23:00:00* Test Item Value Reference Range Interpretation Comments Urine WBC (test code = 5821-4) 6-10 0-5 [facility] LakeErythrocytes detection in urine sediment by light cqtbeeaboo7708-04-45 23:00:00* Test Item Value Reference Range Interpretation Comments Urine RBC (test code = 77496-6) 6-10 0-5 [facility] LakeBacteria detection in urine sediment by light [id number] 23:00:00* Test Item Value Reference Range Interpretation Comments Urine Bacteria (test code = 47804-8) MODERATE NONE [facility] LakeEpithelial cells detection in urine sediment by light [id number] 23:00:00* Test Item Value Reference Range Interpretation Comments Urine Epithelial Cells (test code = 09699-5) FEW NONE [facility] LakeUrine human chorionic gonadotropin (hCG) hycjotzlp1976-53-05 23:00:00* Test Item Value Reference Range Interpretation Comments Urine Test (test code = 2106-3) NEGATIVE NEGATIVE [facility] Paso[facility]um or plasma lipase measurement (enzymatic activity/volume)2020-04-04 20:10:00* Test Item Value Reference Range Interpretation Comments Lipase (test code = 3040-3) 37 8-78 [facility] [id number] 11:26:00 [facility] [address] [address] Patient Name: RANDALL IVORY MR #: [id number] : 1990 Age/Sex: 29/F Req #: [id number] Adm Physician: MONA JULIAN MD Ordered by: MONA JULIAN MD Report #: [id number] Location: MED/SURG Room/Bed: [facility] Procedure: [id number] U S/US GALLBLADDER Exam Date: 03/10/20 Exam Time: 941 REPORT STATUS: Signed EXAM: Rig ht upper quadrant abdominal ultrasound INDICATION: Right upper quadrant p ain COMPARISON: CT abdomen and pelvis of 03/06/2020 TECHNIQUE: Transverse a nd longitudinal images of the right upper quadrant abdomen were obtained FINDINGS: Liver: Size: 14.3 cm in the right midclavicular line, normal Appearance: Increased echogenicity, smooth contour Mass: No focal masses Gallbladder: Multiple echogenic gallstones in the gallbladder. No gallbladder wall thickening, gallbladder distention, or pericholecystic fluid. Gallbladder wall measures 3 mm. Negative sonographic Gallagher's sign. Bile Ducts: In trahepatic Ducts: No dilatation Extrahepatic Ducts: Common bile duct measures 4 mm Pancreas: Visualized portions of the pancreatic head, neck and proximal body are normal. Kidney: The right kidney measures 10.9 cm without evidenc e of hydronephrosis or stone. Vessels: Aorta: Visualized portions are normal Inferior Vena Cava: Visualized portions are normal Main Portal Vein: 0.9 cm, normal size with hepatopetal flow. Free Fluid: No ascites or pleu ral effusion IMPRESSION: Cholelithiasis without sonographic evidence of c holecystitis. Mild hepatic steatosis. Signed by: Cuba Payton MD on 03/10 11:28 AM Dictated By: CUBA PAYTON MD 27 Transcribed By: DENISSE on 03/10/201127 COPY TO: MONA JULIAN MD Serum or plasma total bilirubin measurement (mass/volume)2020-03-10 05:15:00* Test Item Value Reference Range Interpretation Comments Total Bilirubin (test code = 1975-2) 0.9 0.2-1.[address] [facility] plasma conjugated bilirubin measurement (mass/volume)2020-03-10 05:15:00* Test Item Value Reference Range Interpretation Comments Direct Bilirubin (test code = 97269-2) 0.5 0.0-0.5 [facility] LakeFluoroscopic procedure less than one hour rvhcbnzj0871-29-83 05:15:00* Test Item Value Reference Range Interpretation Comments Aspartate Amino Transf (AST/SGOT) (test code = Aspartate Amino Transf (AST/SGOT)) 63 5-34 [facility] alanine aminotransferase measurement (enzymatic activity/volume)2020-03-10 05:15:00* Test Item Value Reference Range Interpretation Comments Alanine Aminotransferase (ALT/SGPT) (test code = 1742-6) 532 0-55 [facility] or plasma protein measurement (mass/volume)2020-03-10 05:15:00* Test Item Value Reference Range Interpretation Comments Total Protein (test code = 2885-2) 6.8 6.5-8.1 [facility] or plasma albumin measurement (mass/volume)2020-03-10 05:15:00* Test Item Value Reference Range Interpretation Comments Albumin (test code = 1751-7) 3.7 3.5-5.0 [facility] or plasma alkaline phosphatase measurement (enzymatic activity/volume)2020-03-10 05:15:00* Test Item Value Reference Range Interpretation Comments Alkaline Phosphatase (test code = 6768-6) 155 40-150 [facility] Paso[facility] or plasma lipase measurement (enzymatic activity/volume)2020-03-10 05:15:00* Test Item Value Reference Range Interpretation Comments Lipase (test code = 3040-3) 92 8-78 [facility] leukocytes automated count (number/volume)2020-03-09 05:30:00* Test Item Value Reference Range Interpretation Comments White Blood Count (test code = 6690-2) 5.17 4.8-10.8 [facility] erythrocytes automated count (number/volume)2020-03-09 05:30:00* Test Item Value Reference Range Interpretation Comments Red Blood Count (test code = 789-8) 4.79 3.6-5.1 [facility] hemoglobin measurement (moles/volume)2020-03-09 05:30:00* Test Item Value Reference Range Interpretation Comments Hemoglobin (test code = 05597-3) 13.3 12.0-16.0 [facility] LakeAutomated blood hematocrit (volume fraction)2020-03-09 05:30:00* Test Item Value Reference Range Interpretation Comments Hematocrit (test code = 4544-3) 39.5 34.2-44.1 [facility] LakeAutomated erythrocyte mean corpuscular ugldno9890-43-15 05:30:00* Test Item Value Reference Range Interpretation Comments Mean Corpuscular Volume (test code = 787-2) 82.5 81-99 [facility] LakeAutomated erythrocyte mean corpuscular hemoglobin (mass per erythrocyte)2020-03-09 05:30:00* Test Item Value Reference Range Interpretation Comments Mean Corpuscular Hemoglobin (test code = 785-6) 27.8 28-32 [facility] LakeAutomated erythrocyte mean corpuscular hemoglobin concentration measurement (mass/volume)2020-03-09 05:30:00* Test Item Value Reference Range Interpretation Comments Mean Corpuscular Hemoglobin Concent (test code = 786-4) 33.7 31-35 [facility] LakeRDW KogYt-Hor2767-69-03 05:30:00* Test Item Value Reference Range Interpretation Comments Red Cell Distribution Width (test code = 71987-8) 13.8 11.7 -14.4 [facility] LakeAutomated blood platelet count (count/volume)2020-03-09 05:30:00* Test Item Value Reference Range Interpretation Comments Platelet Count (test code = 777-3) 210 140-360 [facility] Stationed blood segmented neutrophil count as percentage of total qtdbtamsjx1819-87-33 05:30:00* Test Item Value Reference Range Interpretation Comments Neutrophils (%) (Auto) (test code = 89822-6) 57.7 38.7-80.0 [facility] LakeAutomated blood lymphocyte count as percentage ot total prqgxfyfbd4966-58-76 05:30:00* Test Item Value Reference Range Interpretation Comments Lymphocytes (%) (Auto) (test code = 736-9) 26.3 18.0-39.1 [facility] LakeAutomated blood monocyte count as percentage of total ftwaparwoe9346-55-79 05:30:00* Test Item Value Reference Range Interpretation Comments Monocytes (%) (Auto) (test code = 5905-5) 10.4 4.4-11.3 [facility] LakeAutom[facility] blood eosinophil count as percentage of total rarfzvshrg0924-44-70 05:30:00* Test Item Value Reference Range Interpretation Comments Eosinophils (%) (Auto) (test code = 713-8) 4.6 0.0-6.0 [facility] Lake[facility] blood basophil count as percentage of total dmibwhijws0740-86-49 05:30:00* Test Item Value Reference Range Interpretation Comments Basophils (%) (Auto) (test code = 706-2) 0.8 0.0-1.0 [facility] LakeFluoroscopic procedure less than one hour vpzuzoln3250-14-08 05:30:00* Test Item Value Reference Range Interpretation Comments IM GRANULOCYTES % (test code = IM GRANULOCYTES %) 0.2 0.0- 1.0 [facility] Lake[facility] blood neutrophil count 2020-03-09 05:30:00* Test Item Value Reference Range Interpretation Comments Neutrophils # (Auto) (test code = 751-8) 3.0 2.1-6.9 [facility] lymphocytes count (number/volume) 2020-03-09 05:30:00* Test Item Value Reference Range Interpretation Comments Lymphocytes # (Auto) (test code = 48593-8) 1.4 1.0-3.2 [facility] Lake[facility] monocytes automated count (number/volume)2020-03-09 05:30:00* Test Item Value Reference Range Interpretation Comments Monocytes # (Auto) (test code = 742-7) 0.5 0.2-0.8 [facility] Lake[facility] blood eosinophil count 2020-03-09 05:30:00* Test Item Value Reference Range Interpretation Comments Eosinophils # (Auto) (test code = 711-2) 0.2 0.0-0.4 [facility] LakeAutomated blood basophil count (count/volume)2020-03-09 05:30:00* Test Item Value Reference Range Interpretation Comments Basophils # (Auto) (test code = 704-7) 0.0 0.0-0.1 [facility] LakeFluoroscopic procedure less than one hour qrgnvmup7949-06-45 05:30:00* Test Item Value Reference Range Interpretation Comments Absolute Immature Granulocyte (auto (izabel t code = Absolute Immature Granulocyte (auto) 0.01 0-0.1 [facility] Paso[facility]um or plasma sodium measurement (moles/volume)2020-03-09 05:30:00* Test Item Value Reference Range Interpretation Comments Sodium Level (test code = 2951-2) 138 136-145 [facility] Pasoerum or plasma potassium measurement (moles/volume)2020-03-09 05:30:00* Test Item Value Reference Range Interpretation Comments Potassium Level (test code = 2823-3) 3.2 3.5-5.1 [facility] Paso[facility]um or plasma chloride measurement (moles/volume)2020-03-09 05:30:00* Test Item Value Reference Range Interpretation Comments Chloride Level (test code = 2075-0) 110 98-107 [facility] Pasoerum or plasma carbon dioxide, total measurement (moles/volume)2020-03-09 05:30:00* Test Item Value Reference Range Interpretation Comments Carbon Dioxide Level (test code = 2028-9) 16 22-29 [facility] Paso[facility]um or plasma anion ezd0927-62-39 05:30:00* Test Item Value Reference Range Interpretation Comments Anion Gap (test code = 44653-3) 15.2 8-16 [facility] or plasma urea nitrogen measurement (mass/volume)2020-03-09 05:30:00* Test Item Value Reference Range Interpretation Comments Blood Urea Nitrogen (test code = 3094-0) 5 7-26 [facility] Pasoerum or plasma creatinine measurement (mass/volume)2020-03-09 05:30:00* Test Item Value Reference Range Interpretation Comments Creatinine (test code = 2160-0) 0.62 0.57-1.11 [facility] Pasoerum or plasma urea nitrogen/creatinine mass jbjst2844-41-77 05:30:00* Test Item Value Reference Range Interpretation Comments BUN/Creatinine Ratio (test code = 3097-3) 8 6-25 [facility] LakeEstimated glomerular filtration rate (GFR) htgqicgkhmkno5672-06-06 05:30:00* Test Item Value Reference Range Interpretation Comments Estimat Glomerular Filtration Rate (test code = 789310882) > 60 >60 Ranges were taken from the National Kidney Disease Education Program and the Karen [facility] hospitalal Kidney Foundation literature.Reference ranges:60 or greater: Umvcgn67-00 ( for 3 consecutive months): Chronic kidney disease 15 or less: Kidney failureHCA Houston Healthcare Clear LakeGlucose ujouetxozxc7548-90-47 05:30:00* Test Item Value Reference Range Interpretation Comments Glucose Level (test code = ANL7056) 65 74-118 [facility] Pasoerum or plasma calcium measurement (mass/volume)2020-03-09 05:30:00* Test Item Value Reference Range Interpretation Comments Calcium Level (test code = 75982-7) 8.9 8.4-10.2 [facility] LakeMRI [facility]P [id number] 19:05:00 [facility] [address] [address] Patient Name: RANDALL IVORY MR #: [id number] : 1990 Age/Sex: 29/F Req #: [id number] Adm Physician: MONA JULIAN MD Ordered by: MONA JULIAN MD Report #: [id number] Location: MED/SURG Room/Bed: [facility] Procedure: [id number] M RI/MRI MRCP WO Exam Date: Exam [...] (test code = 5643-2) < 10.0 0.0-10.0 [facility] [id number] 17:00:[address] [address] Patient Name: RANDALL IVORY MR #: [id number] : 1990 Age/Sex: 29/F Req #: [id number] Adm Physician: Ordered by: PABLO DUNCAN CASH POSTING REPRESENTATIVE Report #: [id number] Location: ER Room/Bed: Procedure: CT/CT ABDOMEN W [...] DENISSE on 03/06/201704 COPY TO: PABLO DUNCAN CASH POSTING REPRESENTATIVE CT ABDOMEN/PELVIS [id number] 16:04:00 [address] [address] Patient Name: RANDALL IVORY MR #: [id number] : 1990 Age/Sex: 29/F Req #: [id number] Adm Physician: Ordered by: PABLO DUNCAN CASH POSTING REPRESENTATIVE Report #: [id number] Location: ER Room/Bed: Procedure: CT/CT ABDOMEN/PELVIS WO [...] Color (test code = 5778-6) STRAW YELLOW [facility] LakeUrine qgsdatp3625-45-14 14:20:00* Test Item Value Reference Range Interpretation Comments Urine Clarity (test code = 94186-7) SL CLOUDY CLEAR [facility] Pasopecific gravity of Urine by Test strip 2020-03-06 14:20:00* Test Item Value Reference Range Interpretation Comments Urine Specific [place] (test code = 5811-5) 1.020 1.010-1.02 5 [facility] LakeUrine pH measurement by automated test lmvsx1643-81-20 14:20:00* Test Item Value Reference Range Interpretation Comments Urine pH (test code = 02877-9) 7 5-7 [facility] LakeUrine leukocyte esterase detection by islcwpgl9770-54-47 14:20:00* Test Item Value Reference Range Interpretation Comments Urine Leukocyte Esterase (test code = 5799-2) NEGATIVE NEGATIVE [facility] LakeUrine nitrite mpshzgmpq2989-71-72 14:20:00* Test Item Value Reference Range Interpretation Comments Urine Nitrite (test code = 79831-5) NEGATIVE NEGATIVE [facility] Lake[facility]rine protein measurement by test strip (mass/volume)2020-03-06 14:20:00* Test Item Value Reference Range Interpretation Comments Urine Protein (test code = 5804-0) NEGATIVE NEGATIVE [facility] LakeUrine glucose gdbrdsqjo5305-25-01 14:20:00* Test Item Value Reference Range Interpretation Comments Urine Glucose (UA) (test code = 2349-9) NEGATIVE NEGATIVE [facility] LakeUrine ketones detection by automated test dcfbx1662-02-56 14:20:00* Test Item Value Reference Range Interpretation Comments Urine Ketones (test code = 21625-8) NEGATIVE NEGATIVE [facility] LakeUrine urobilinogen measurement by test strip (mass/volume)2020-03-06 14:20:00* Test Item Value Reference Range Interpretation Comments Urine Urobilinogen (test code = 05741-5) 0.2 0.2-1 [facility] Lake[facility]rine total bilirubin measurement (mass/volume)2020-03-06 14:20:00* Test Item Value Reference Range Interpretation Comments Urine Bilirubin (test code = 1978-6) MODERATE NEGATIVE [facility] LakeUrine erythrocytes fzxpiaaee4294-05-58 14:20:00* Test Item Value Reference Range Interpretation Comments Urine Blood (test code = 98010-2) TRACE NEGATIVE [facility] LakeAutomated urine sediment leukocyte count by microscopy (number/high power field)2020-03-06 14:20:00* Test Item Value Reference Range Interpretation Comments Urine WBC (test code = 5821-4) NONE 0-5 [facility] LakeErythrocytes detection in urine sediment by light ivxuevqmga3787-45-78 14:20:00* Test Item Value Reference Range Interpretation Comments Urine RBC (test code = 98961-6) 0-5 0-5 [facility] LakeBacteria detection in urine sediment by light wnrzlplitf8602-42-93 14:20:00* Test Item Value Reference Range Interpretation Comments Urine Bacteria (test code = 45643-3) RARE NONE [facility] LakeEpithelial cells detection in urine sediment by light qssphlxkvb0468-00-85 14:20:00* Test Item Value Reference Range Interpretation Comments Urine Epithelial Cells (test code = 09219-0) FEW NONE [facility] LakePlasma globulin measurement (mass/volume) 2020-03-06 14:20:00* Test Item Value Reference Range Interpretation Comments Globulin (test code = 68117-8) 2.9 2.3-3.5 [facility] Pasoerum or plasma albumin/globulin mass guqum1652-85-73 14:20:00* Test Item Value Reference Range Interpretation Comments Albumin/Globulin Ratio (test code = 1759-0) 1.4 0.8-2.0 [facility] Pasoerum or plasma amylase measurement (enzymatic activity/volume)2020-03-06 14:20:00* Test Item Value Reference Range Interpretation Comments Amylase Level (test code = 1798-8) 3642 25-125 [facility] Pasoerum or plasma choriogonadotropin ( test) tgufdjiti9347-78-28 14:20:00* Test Item Value Reference Range Interpretation Comments Human Chorionic Gonadotropin, Qual (test code = 2118-8) NEGATIVE NEGATIVE [facility] LakeURINALYSIS NYJPUQDY6148-89-95 06:57:00* Test Item Value Reference Range Interpretation [...] COMMENTS: repeat urinalysis Urine Source? Clean CatchURINALYSIS YBYFSDTR9570-67-24 06:55:00* Test Item Value Reference Range Interpretation [...] HCG SERUM BETA (test code = HCG) 83286.0 mIU/mL 0-3 H Interfering substances present in [...] MONTHS AFTER CONCEPTION 10,000-100,000 MIU/ML BASIC METABOLIC DVIVS9607-82-30 05:42:00* Test Item Value Reference Range Interpretation [...] CA) 8.8 mg/dL 8.5-10.1 N HEPATIC FUNCTION HTPSL9867-43-31 05:42:00* Test Item Value Reference Range Interpretation [...] reference range due to change in reagent. DRVGKN1843-34-37 05:42:00* Test Item Value Reference Range Interpretation Comments LIPASE (test code = LIP) 87 U/L 73.0-393.0 N SCFTKQMK-N3617-34-22 05:42:00* Test Item Value Reference Range Interpretation Comments TROPONIN-I (test code = TROPI) <0.015 ng/mL 0-0.045 N CBC W/O LEZA2084-35-52 05:40:00* Test Item Value Reference Range Interpretation [...] MPV) 10.4 fL 6.7-11.0 N CBC W/O HJDD4101-09-41 05:19:00* Test Item Value Reference Range Interpretation [...] = MPV) fL 6.7-11.0 - US ABDOMEN [id number] 04:57:00 Name: RANDALL DE LA CRUZ [facility] : 1990 Age/S: 28 / F [address] [facility] Unit #: [id number] Loc: [place] [address] Phys: Gertrudis Angel CASH POSTING REPRESENTATIVE Acct: [id number] Dis Date: Status: REG ER PHONE #: [phone] Exam Date: 07/29/2019 0430 FAX #: [phone] Reason: Epigastric EXAMS: CPT CODE: [id number] ABDOMEN LTD 33714 EXAM: RIGHT UPPER QUADRANT ABDOMINAL ULTRASOUND INDICATION: [...] Report (CONTINUED) Name: RANDALL DE LA CRUZ [facility] : 1990 Age/S: 28 / F [address] Unit #: [id number] Loc: [place] [address] Phy s: AngelGertrudis diggs CASH POSTING REPRESENTATIVE Acct: [id number] Dis Date: Status: REG ER PHONE #: [phone] Exam Date: 07/29/20190 FAX #: [phone] Reason: Epigastric EXAMS: CPT CODE: [id number] US ABDOMEN LTD 01187 <Continued> CC: Gertrudis Angel CASH POSTING REPRESENTATIVE Technologist: Patricia Galvan RT(S), RDMS Trnscb Date/Time: 07/29/2019 (0457) 16 Orig Print D/T: S: 07/29/2019 (8778) Probe: PAGE 2 Signed Report URINALYSIS COMPLETE [...] #/LPF NONE Urine Source? Clean CatchBASIC METABOLIC HRJCT1581-29-08 07:49:00* Test Item Value Reference Range Interpretation Comments SODIUM (test code = NA) 141 mmol/L 136-145 N POTASSIUM (test code = K) 2.8 mmol/L 3.5-5.1 LL Re sults called to [id number] by EDU 07/25/19 0643Critical results verified and [...] CA) 8.6 mg/dL 8.5-10.1 N HCG SERUM [id number] 07:49:00* Test Item Value Reference Range Interpretation Comments HCG SERUM BETA (test code = HCG) 51183.0 mIU/mL 0-3 H Interfering substances present in [...] MIU/ML2-3 MONTHS AFTER CONCEPTION 10,000-100,000 MIU/ML URINALYSIS IJUVIUEL7265-72-17 06:47:00* Test Item Value Reference Range Interpretation [...] #/LPF FEW Urine Source? Clean CatchBASIC METABOLIC [id number] 06:43:00* Test Item Value Reference Range Interpretation Comments SODIUM (test code = NA) 141 mmol/L 136-145 N POTASSIUM (test code = K) 2.8 mmol/L 3.5-5.1 LL Re sults called to [id number] by EDU 07/25/19 0643Critical results verified and [...] CA) 8.6 mg/dL 8.5-10.1 N HCG SERUM [id number] 06:43:00* Test Item Value Reference Range Interpretation Comments HCG SERUM BETA (test code = HCG) mIU/mL 0-3 - US PREG AFTER [id number] 06:17:00 Name: RANDALL JAVIER [facility] : 1990 Age/S: 28 / F [address] [facility] Unit #: [id number] Loc: [place] [address] Phys: Dillan Up [facility] Acct: [id number] Dis Date: Status: REG ER PHONE #: [phone] Exam Date: 07/25/2019 0557 FAX #: [phone] Reason: VAGINAL BLEEDING/PELVIC PAIN EXAMS: CPT CODE: [id number] US PREG AFTER TRI 25690 EXAM: LIMITED OBSTETRIC ULTRASOUND INDICATION: VAGINAL BLEEDING/PELVIC [...] 1 Signed Report (CONTINUED) Name: [facility]ANDALL [facility]AVIER [facility] 1990 Age/S: 28 / F [address] [facility] Unit #: [id number] Loc: [place] [address] Phys: Dillan Up Acct: [id number] Dis Date: Status: REG ER PHONE #: [phone] Exam Date: 07/25/2019 0557 FAX #: [phone] Reason: VAGINAL BLEEDING/PELVIC PAIN EXAMS: CPT CODE: [id number] US PREG AFTER 1ST TRI 92898 < Continued> at 0617 Reported and signed by: Naomi Patiño M.D. CC: Dillan Up Technologist: CARMEN AGUIRRE RDMS Trnscb Date/Time: 07/25/2019 (616) 16 Orig Print D/T: S: 07/25/2019 (619) Probe: PAGE 2 Signed Report CBC W/O [id number] 06:08:00* Test Item Value Reference Range Interpretation [...]
[2020-04-09 01:03] LABS: BASOPHILS % 0.6 % (0.0-1.0); EOSINOPHILS % 0.8 % (0.0-6.0); HEMATOCRIT 37.7 % (34.2-44.1); HEMOGLOBIN 12.7 g/dL (12.0-16.0); LYMPHOCYTES # (AUTO) 1.3 (1.0-3.2); LYMPHOCYTES % 25.2 % (18.0-39.1); MEAN CORPUSCULAR HEMOGLOBIN 27.4 pg (28-32); MEAN CORPUSCULAR HGB CONC 33.7 g/dL (31-35); MEAN CORPUSCULAR VOLUME 81.4 fL (81-99); MONOCYTES # (AUTO) 0.4 (0.2-0.8); MONOCYTES % 7.6 % (4.4-11.3); NEUTROPHILS # (AUTO) 3.4 (2.1-6.9); NEUTROPHILS % 65.4 % (38.7-80.0); PLATELET COUNT 201 x10e3/uL (140-360); RED BLOOD COUNT 4.63 x10e6/uL (3.6-5.1); RED CELL DISTRIBUTION WIDTH 13.5 % (11.7-14.4)
--- NOTE | 2020-04-09 01:17 | Emergency Department Note ---
History of Present Illnes History of Present Illness Chief Complaint: General Medicine Complaints History of Present Illness This is a 29 year old female C/O FEELING LIGHTHEADED, DIZZY, AND FEELING LIKE SHE IS ABOUT TO PASS OUT, SYMPTOMS BEGAN ABOUT 1 HOUR AFTER TAKING A NORCO FOR PAIN SECONDARY TO GALLBLADDER REMOVAL 3 DAYS AGO. PT FELT LIKE HER THROAT WAS CLOSING UP, AND FELT HER FINGERS WERE CRAMPING UP. PT STATES THIS IS FIRST TIME SHE TOOK THE NORCO, STATES TOOK THE NORCO BECAUSE SHE BEGAN TO HAVE WORSENING UPPER ABD PAIN Historian: Patient, Family Member Arrival Mode: Car Onset (how long ago): hour(s) (1) Location: NONE Quality: LIGHT HEADED, DIZZY, SOB Radiation: non-radiation Severity: moderate Onset quality: gradual Duration (how long): hour(s) (1) Timing of current episode: constant Progression: worsening Chronicity: new Context: recent illness; recent surgery (CHOLECYSTECTOMY ON 04/06/20) Relieving factors: none Exacerbating factors: none Associated symptoms: denies other symptoms Treatments prior to arrival: none Past Medical/Family History Physician Review I have reviewed the patient's past medical and family history. Any updates have been documented here. Past Medical History Recent Fever: No Clinical Suspicion of Infectio: No New/Unexplained Change in Ment: No Past Medical History: None Past Surgical History: None, Cholecysctectomy Social History Smoking Cessation: Never Smoker Alcohol Use: None Any Illegal Drug Use: No Other Last Tetanus: UTD Review of Systems Review of Systems Constitutional: no symptoms EENTM: no symptoms Cardiovascular: no symptoms Respiratory: dyspnea Gastrointestinal: abdominal pain (UPPER) Genitourinary: no symptoms Musculoskeletal: other (FINGERS ARE NUMB AND STIFF ON BOTH HANDS) Neurological: other (DIZZY, LIGHT HEADED) Psychological: no symptoms Endocrine: no symptoms Hematological/Lymphatic: no symptoms Review of other systems All other systems reviewed and negative. Physical Exam Related Data Allergies: Coded Allergies: aspirin (Verified Allergy, Intermediate, 04/04/20) Triage Vital Signs Vital Signs Date Time Temp Pulse Resp B/P (MAP) Pulse Ox O2 Delivery O2 Flow Rate FiO2 04/09/20 00:22 98.1 64 24 131/81 100 Vital signs reviewed: Yes Physical Exam CONSTITUTIONAL Constitutional: well-developed, well-nourished, other (ANXIOUS) HENT HENT: normocephalic, atraumatic, oropharynx clear/moist, nose normal HENT L/R: left ext ear normal, right ext ear normal EYES Eyes: PERRL, conjunctivae normal NECK Neck: ROM normal PULMONARY Pulmonary: breath sounds normal, other (PT HYPERVENTILATING WITH TACYPNEA) CARDIOVASCULAR Cardiovascular: regular rhythm, heart sounds normal, capillary refill normal, normal rate GASTROINTESTINAL Abdominal: soft, bowel sounds normal, tender (MODERATE EPIGASTRIC) GENITOURINARY Genitourinary: exam deferred SKIN Skin: warm, dry MUSCULOSKELETAL Musculoskeletal: other (PT WITH CARPOSPASMS TO BOTH HANDS) NEUROLOGICAL Neurological: alert, oriented x 3, no gross motor or sensory deficits PSYCHOLOGICAL Psychological: mood/affect normal, judgement normal Results Laboratory Result Diagram: 04/09/20 0031 Laboratory Laboratory Tests Test 04/09/20 00:31 White Blood Count 5.12 x10e3/uL (4.8-10.8) Red Blood Count 4.63 x10e6/uL (3.6-5.1) Hemoglobin 12.7 g/dL (12.0-16.0) Hematocrit 37.7 % (34.2-44.1) Mean Corpuscular Volume 81.4 fL (81-99) Mean Corpuscular Hemoglobin 27.4 pg (28-32) Mean Corpuscular Hemoglobin Concent 33.7 g/dL (31-35) Red Cell Distribution Width 13.5 % (11.7-14.4) Platelet Count 201 x10e3/uL (140-360) Neutrophils (%) (Auto) 65.4 % (38.7-80.0) Lymphocytes (%) (Auto) 25.2 % (18.0-39.1) Monocytes (%) (Auto) 7.6 % (4.4-11.3) Eosinophils (%) (Auto) 0.8 % (0.0-6.0) Basophils (%) (Auto) 0.6 % (0.0-1.0) Neutrophils # (Auto) 3.4 (2.1-6.9) Lymphocytes # (Auto) 1.3 (1.0-3.2) Monocytes # (Auto) 0.4 (0.2-0.8) Eosinophils # (Auto) 0.0 (0.0-0.4) Basophils # (Auto) 0.0 (0.0-0.1) Absolute Immature Granulocyte (auto 0.02 x10e3/uL (0-0.1) Sodium Level 139 mmol/L (136-145) Potassium Level 3.1 mmol/L (3.5-5.1) Chloride Level 105 mmol/L (98-107) Carbon Dioxide Level 19 mmol/L (22-29) Anion Gap 18.1 mmol/L (8-16) Blood Urea Nitrogen 9 mg/dL (7-26) Creatinine 0.70 mg/dL (0.57-1.11) Estimat Glomerular Filtration Rate > 60 ML/MIN (60-) BUN/Creatinine Ratio 13 (6-25) Glucose Level 134 mg/dL (74-118) Calcium Level 9.6 mg/dL (8.4-10.2) Total Bilirubin 2.0 mg/dL (0.2-1.2) Aspartate Amino Transf (AST/SGOT) 773 IU/L (5-34) Alanine Aminotransferase (ALT/SGPT) 778 IU/L (0-55) Alkaline Phosphatase 370 IU/L (40-150) Total Protein 7.1 g/dL (6.5-8.1) Albumin 4.2 g/dL (3.5-5.0) Globulin 2.9 g/dL (2.3-3.5) Albumin/Globulin Ratio 1.4 (0.8-2.0) Amylase Level 323 U/L (25-125) Lipase 1048 U/L (8-78) Laboratory Tests Test 04/09/20 00:31 White Blood Count 5.12 x10e3/uL (4.8-10.8) Red Blood Count 4.63 x10e6/uL (3.6-5.1) Hemoglobin 12.7 g/dL (12.0-16.0) Hematocrit 37.7 % (34.2-44.1) Mean Corpuscular Volume 81.4 fL (81-99) Mean Corpuscular Hemoglobin 27.4 pg (28-32) Mean Corpuscular Hemoglobin Concent 33.7 g/dL (31-35) Red Cell Distribution Width 13.5 % (11.7-14.4) Platelet Count 201 x10e3/uL (140-360) Neutrophils (%) (Auto) 65.4 % (38.7-80.0) Lymphocytes (%) (Auto) 25.2 % (18.0-39.1) Monocytes (%) (Auto) 7.6 % (4.4-11.3) Eosinophils (%) (Auto) 0.8 % (0.0-6.0) Basophils (%) (Auto) 0.6 % (0.0-1.0) Neutrophils # (Auto) 3.4 (2.1-6.9) Lymphocytes # (Auto) 1.3 (1.0-3.2) Monocytes # (Auto) 0.4 (0.2-0.8) Eosinophils # (Auto) 0.0 (0.0-0.4) Basophils # (Auto) 0.0 (0.0-0.1) Absolute Immature Granulocyte (auto 0.02 x10e3/uL (0-0.1) Lab results reviewed: Yes Laboratory comments PT WITH ELEVATED LFT'S AND PANCREATITIS, MOST LIKELY HAS RETAINED GALLSTONE IN CBD GIVEN RECENT H/O CHOLECYSTECTOMY Imaging Imaging results reviewed: Yes Impressions Procedure: [id number] DX/CHEST SINGLE (NOT PORTABLE) Exam Date: 04/09/20 Exam Time: 0120 REPORT STATUS: Signed EXAMINATION: CHEST SINGLE (NOT PORTABLE) COMPARISON: No relevant priors INDICATION: ^SOB ^[id number] ^0120 ^Y DISCUSSION: Frontal view of the chest obtained at 0120 hours. HEART AND MEDIASTINUM: The cardiomediastinal silhouette is unremarkable. LINES: None. LUNGS: The lungs are well inflated and clear. No pneumonia or pulmonary edema. PLEURA: No pleural effusion or pneumothorax. BONES AND SOFT TISSUES: No focal osseous lesion. The soft tissues are normal. IMPRESSION: No acute cardiopulmonary disease. Signed by: Dr. Kassidy Sheikh MD on 04/09/2020 1:39 AM Dictated By: KASSIDY SHEIKH MD 8 Transcribed By: DENISSE on 04/09/20138 Procedures 12 Lead ECG Interpretation Roving Marker: Interpreted by ED physician Rhythm: sinus rhythm Rate: normal BPM: 70 QRS axis: normal ST segments normal: No (NON SPECIFIC ST CHANGES) T waves normal: Yes Clinical Impression: non-specific ECG Critical Care Time Subsequent provider I assumed direction of critical care for this patient from another provider of my specialty. Assessment & Plan Assessment & Plan Final Impression: (1) BILIARY ACUTE PANCREATITIS WITHOUT NECROSIS OR INFECTION (2) HYPERVENTILATION Assessment & Plan PT BEGAN HAVING DIZZINESS, DROWSINESS AFTER TAKING NORCO FOR THE FIRST TIME, THEN BEGAN TO FEEL SOB AND HANDS AND FACE BEGAN TO TINGLE, PT HYPERVENTILATING ON ARRIVAL AND HAS CARPOSPASMS TO BOTH HANDS, PT ALSO WITH UPPER ABD PAIN AND TENDERNESS CBC, CMP,AMYLASE, LIPASE EKG, CXR ORDERED TO EVAL FOR ELECTROLYTE ABNORMALITY, PNEUMONIA,ELEVATED LFT'S, PANCREATITIS PT WITH GALLSTONE PANCREATITIS I SPOKE WITH DR URENA AND DR SAXENA, ADMIT INPATIENT, ORDER MRCP IN AM Depart Disposition: ADMITTED Last Vital Signs Date Time Temp Pulse Resp B/P (MAP) Pulse Ox O2 Delivery O2 Flow Rate FiO2 04/09/20 00:22 98.1 64 24 131/81 100 Home Meds Active Scripts Cefdinir (OMNICEF) 300 Mg Capsule, 300 MG PO BID for 5 Days, CAP Prov:EMILY MANZANARES [employer] 04/06/20 Acetaminophen With Codeine (TYLENOL WITH CODEINE #3 TABLET) 1 Each Tablet, 300 MG PO Q8H, #20 TAB Prov:EMILY MANZANARES NP 04/06/20 RANDELL DUMONT MD Apr 09, 2020 01:17
[2020-04-09 01:24] LABS: ALANINE AMINOTRANSFERASE 778 IU/L (0-55); ALBUMIN 4.2 g/dL (3.5-5.0); ALBUMIN/GLOBULIN RATIO 1.4 (0.8-2.0); ALKALINE PHOSPHATASE 370 IU/L (40-150); ANION GAP 18.1 mmol/L (8-16); BLOOD UREA NITROGEN 9 mg/dL (7-26); BUN/CREATININE RATIO 13 (6-25); CALCIUM 9.6 mg/dL (8.4-10.2); CARBON DIOXIDE 19 mmol/L (22-29); CHLORIDE 105 mmol/L (98-107); EST GLOMERULAR FILTRATION RATE > 60 ML/MIN (60-); GLUCOSE 134 mg/dL (74-118); POTASSIUM 3.1 mmol/L (3.5-5.1); SODIUM 139 mmol/L (136-145)
--- NOTE | 2020-04-09 01:42 | Diagnostic Imaging Report ---
EXAMINATION: CHEST SINGLE (NOT PORTABLE) COMPARISON: No relevant priors INDICATION: ^SOB ^[id number] ^0120 ^Y DISCUSSION: Frontal view of the chest obtained at 0120 hours. HEART AND MEDIASTINUM: The cardiomediastinal silhouette is unremarkable. LINES: None. LUNGS: The lungs are well inflated and clear. No pneumonia or pulmonary edema. PLEURA: No pleural effusion or pneumothorax. BONES AND SOFT TISSUES: No focal osseous lesion. The soft tissues are normal. IMPRESSION: No acute cardiopulmonary disease. Signed by: Dr. Manohar Sheikh MD on 04/09/2020 1:39 AM
[2020-04-09 02:20] LABS: AMYLASE 323 U/L (25-125); LIPASE 1048 U/L (8-78)
[2020-04-09] MEDS ORDERED: SODIUM CHLORIDE 0.9% 1000ML 1,000 ML IV ONE (02:30)
[2020-04-09] MEDS ORDERED: ONDANSETRON HCL INJ 2MG/ML 2ML 2 MG/ML VIAL IV PRN (02:45)
[2020-04-09] MEDS ORDERED: MORPHINE SULFATE 2 MG/ML SYR 1ML IV PRN (02:45)
--- OUTSIDE RECORDS SUMMARY | 2020-04-09 02:59 | XMS REPORT | Continuity of Care Document ---
Author Author [facility] t Organization [facility] Address [address] [place] [address] Phone Unavailable Care Team Providers Care Boat Patcher Plastic Name Role Phone NO, PCP PCP Unavailable Tereso DUMONT Attphys Unavailable RYAN URENA Attphys Unavailable MONA JULIAN Attphys Unavailable Eunice Nguyen CNM Attphys Jovan Salazar Rn [facility] Attphys Unavailable Porsha Jules MD Attphys Doctor Unassigned, Name No Attphys Unavailable Tereso Wayne CNM Attphys , [facility] Attphys Unavailable RYAN URENA Admphys Unavailable MONA JULIAN Admphys Unavailable Porsha Jules MD Admphys Payers Payer Name Policy Type Policy Number Effective Date Expiration Date S ource Problems Condition Name Condition Details Condition Category Status Onset Date Resolution Date Last Treatment Date Treating Clinician Comments Source Pancreatitis Problem Active [facility] Cholecystitis Problem Active [facility] Allergies, Adverse Reactions, Alerts Allergy Name Allergy Type Status Severity Reaction(s) Onset Date Inacti ve Date Treating Clinician Comments Source Aspirin Allergy to substance Active Moderate 2020-04-04 00:00:[address] [facility] Aspirin Allergy to substance Active Severe SWELLING IN TON YESSI AND THROAT 2020-03-06 00:00:00 [facility] aspirin DA Active MO 2019-07-25 00:00:00 [facility] No Known Allergies DA Active U 2019-07-25 00:00:00 [facility] Social History Social Habit Start Date Stop Date Quantity Comments Source Sex Assigned At 1990 00:00:00 1990 00:00:[address] [facility] Medications Ordered Medication Name Filled Medication Name Start Date Stop Da te Current Medication? Ordering Clinician Indication Dosage Frequency Signature (SIG) Comments Components Source Cefdinir (Omnicef) 300 Mg CAPSULE Cefdinir (Omnicef) 300 Mg CAPSULE 2020-04-06 09:09:00 Yes 300 Tw[address] A Day [facility] Acetaminophen With Codeine (Tylenol With Codeine #3 Ta blet) 1 Each TABLET Acetaminophen With Codeine (Tylenol With Codeine #3 Tablet) 1 Each TABLET 2020-04-06 09:08:00 Yes 300 Every [address] [facility] Famotidine (Pepcid) 20 Mg TABLET Famotidine (Pepcid) 20 Mg T ABLET 2020-03-10 08:52:00 Yes 20 Twice A Day [facility] Ondansetron Hcl (Zofran*) 4 Mg TABLET Ondansetron Hcl (Zofra n*) 4 Mg TABLET 2020-03-10 08:52:00 Yes 4 Every 4 Hour s as needed for Nausea/Vomiting [facility] Vital Signs Vital Name Observation Time Observation Value Comments Source Body Temperature 2020-04-06 16:30:00 97.6 [degF] [facility] Weight 2020-04-05 18:12:00 139 [lb_av] [facility] BMI (Body Mass Index) 2020-04-05 18:12:00 23.9 kg/m2 [facility] Body Temperature 2020-03-10 11:46:00 97.7 [degF] [facility] Weight 2020-03-08 00:47:00 159.56 [lb_av] [facility] BMI (Body Mass Index) 2020-03-08 00:47:00 25.4 kg/m2 [facility] Procedures Procedure Date / Time Performed Performing Clinician [facility] e Computed tomography of abdomen and pelvis with contrast 00:00:00 [facility] Gallbladder 2020-04-05 00:00:00 [facility] US Gallbladder 2020-03-10 00:00:00 [facility] Magnetic resonance cholangiopancreatography (MRCP) wit hout contrast 2020-03-07 00:00:00 [facility] CT of abdomen and pelvis without contrast 2020-03-06 00:00:[address] [facility] Computed tomography of abdomen with contrast 2020-03-06 00:00:[address] [facility] Plan of Care Planned Activity Planned Date Details Comments Source Instructions Cholelithiasis [facility] Instructions Cholelithiasis [facility] Encounters Start Date/Time End Date/Time Encounter Type Admission Type Attendi [facility] Care Department Encounter ID Source 2020-04-05 03:00:00 2020-04-06 17:18:00 Discharged Inpatient (obs) 1 RYAN URENA [facility] [id number] [facility] 2020-03-06 17:55:00 2020-03-10 14:24:00 Discharged Inpatient 1 IESHA MONA [facility] [id number] [facility] 2020-01-09 10:52:18 2020-01-09 11:47:42 Routine Visit Yeny Nguyen [facility] DIRECTOR OF RETAIL MERCHANDISING [facility] [id number] 2019-12-26 10:04:52 2019-12-26 10:45:22 Nurse Visit 1, Christopher Aldana Rn [facility] DIRECTOR OF RETAIL MERCHANDISING [facility] [id number] 2019-12-19 06:31:00 2019-12-21 13:20:00 Hospital Encounter Charly Jules [facility] [id number] 2019-12-19 00:00:00 2019-12-19 00:00:00 Orders Only D octor Unassigned, [place] [facility] [id number] 2019-12-17 13:16:43 2019-12-17 14:01:45 Routine Visit Viviana Wayne [facility] DIRECTOR OF RETAIL MERCHANDISING [facility] [id number] 2019-12-13 15:34:16 2019-12-13 16:37:54 Routine Visit Viviana Wayne [facility] DIRECTOR OF RETAIL MERCHANDISING [facility] [id number] 2019-07-18 16:05:34 2019-07-18 16:50:45 Routine Visit Yeny Nguyen [facility] DIRECTOR OF RETAIL MERCHANDISING [facility] [id number] 2019-06-19 15:28:12 2019-06-19 16:04:29 Routine Visit Yeny Nguyen [facility] DIRECTOR OF RETAIL MERCHANDISING [facility] [id number] 2019-06-11 15:27:50 2019-06-11 15:54:27 Reproduction Artist Visit 1 , [facility] Room [facility] DIRECTOR OF RETAIL MERCHANDISING [facility] [id number] Results Test Description Test Time Test Comments Results Result Comments Source CHEST SINGLE (NOT PORTABLE) 2020-04-09 01:38:00 [place] [address] Patient Name: RANDALL JAVIER MR #: [id number] : 1990 Age/Sex: 29/F Req #: [id number] Adm Physician: Ordered by: RANDELL DUMONT MD Report #: [id number] Location: ER Room/Bed: Procedure: [id number] DX/CHEST SINGLE (NOT PORTABLE) Exam Date: 04/09/20 Exam Time: 0120 REPORT STATUS: Signed EXAMINATION: CHEST SINGLE (NOT PORTABLE) COMPARISON: No relevant priors INDICATION: SOB [id number] Y DISCUSSION: Frontal view of the chest obtained at 0120 hours. HEART AND MEDIASTINUM: The cardiomediastinal silhouette is unremarkable. LINES: None. LUNGS: The lungs are well inflated and clear. No pneumonia or pulmonary edema. PLEURA: No pleural effusion or pneumothorax. BONES AND SOFT TISSUES: No focal osseous lesion. The soft tissues are normal. IMPRESSION: No acute cardiopulmonary disease. Signed by: Dr. Kassidy Rojas MD on 04/09/2020 1:39 AM Dictated By: KASSIDY ROJAS MD 8 Transcribed By: DENISSE on 04/09/20138 COPY TO: RANDELL DUMONT MD Serum or plasma sodium measurement (moles/volume) 2020-04-06 15:00:00 Test Item Sodium Level (test code = 2951-2) 137 136-145 [facility] potassium measurement (moles/volume)2020-04-06 15:00:00* Test Item Value Reference Range Interpretation Comments Potassium Level (test code = 2823-3) 4.3 3.5-5.1 [facility] plasma chloride measurement (moles/volume)2020-04-06 15:00:00* Test Item Value Reference Range Interpretation Comments Chloride Level (test code = 2075-0) 106 98-107 [facility] plasma carbon dioxide, total measurement (moles/volume)2020-04-06 15:00:00* Test Item Value Reference Range Interpretation Comments Carbon Dioxide Level (test code = 2028-9) 21 22-29 [facility] plasma anion zyi4206-11-94 15:00:00* Test Item Value Reference Range Interpretation Comments Anion Gap (test code = 36287-5) 14.3 8-16 [facility] urea nitrogen measurement (mass/volume)2020-04-06 15:00:00* Test Item Value Reference Range Interpretation Comments Blood Urea Nitrogen (test code = 3094-0) 8 7-26 [facility] plasma creatinine measurement (mass/volume)2020-04-06 15:00:00* Test Item Value Reference Range Interpretation Comments Creatinine (test code = 2160-0) 0.71 0.57-1.11 [facility] plasma urea nitrogen/creatinine mass jmfmh4312-02-61 15:00:00* Test Item Value Reference Range Interpretation Comments BUN/Creatinine Ratio (test code = 3097-3) 11 6-[address] CenterEstimated glomerular filtration rate (GFR) zzeoeezrjwvtk9770-89-30 15:00:00* Test Item Value Reference Range Interpretation Comments Estimat Glomerular Filtration Rate (test code = 650068053) > 60 >60 Ranges were taken from the National Kidney Disease Education Program and the [facility] literature.Reference ranges:60 or greater: Knmqij17-36 ( for 3 consecutive months): Chronic kidney disease 15 or less: [address] [address] Medical CenterGlucose lygrzpuwfyf7135-96-75 15:00:00* Test Item Value Reference Range Interpretation Comments Glucose Level (test code = SWU3868) 138 74-118 [facility] or plasma calcium measurement (mass/volume)2020-04-06 15:00:00* Test Item Value Reference Range Interpretation Comments Calcium Level (test code = 34921-6) 8.9 8.4-10.2 [facility] or plasma total bilirubin measurement (mass/volume)2020-04-06 15:00:00* Test Item Value Reference Range Interpretation Comments Total Bilirubin (test code = 1975-2) 1.4 0.2-1.[address] CenterFluoroscopic procedure less than one hour rygbbpuo5083-93-94 15:00:00* Test Item Value Reference Range Interpretation Comments Aspartate Amino Transf (AST/SGOT) (test code = Aspartate Amino Transf (AST/SGOT)) 618 5-34 [facility] or plasma alanine aminotransferase measurement (enzymatic activity/volume)2020-04-06 15:00:00* Test Item Value Reference Range Interpretation Comments Alanine Aminotransferase (ALT/SGPT) (test code = 1742-6) 1083 0-55 [facility] or plasma protein measurement (mass/volume)2020-04-06 15:00:00* Test Item Value Reference Range Interpretation Comments Total Protein (test code = 2885-2) 6.7 6.5-8.1 [facility] or plasma albumin measurement (mass/volume)2020-04-06 15:00:00* Test Item Value Reference Range Interpretation Comments Albumin (test code = 1751-7) 3.7 3.5-5.[address] CenterPlasma globulin measurement (mass/volume) 2020-04-06 15:00:00* Test Item Value Reference Range Interpretation Comments Globulin (test code = 67168-1) 3.0 2.3-3.5 [facility] or plasma albumin/globulin mass zfbsj3889-60-18 15:00:00* Test Item Value Reference Range Interpretation Comments Albumin/Globulin Ratio (test code = 1759-0) 1.2 0.8-2.0 [facility] plasma alkaline phosphatase measurement (enzymatic activity/volume)2020-04-06 15:00:00* Test Item Value Reference Range Interpretation Comments Alkaline Phosphatase (test code = 6768-6) 182 40-[address] [facility] CenterBlood leukocytes automated count (number/volume)2020-04-06 04:50:00* Test Item Value Reference Range Interpretation Comments White Blood Count (test code = 6690-2) 3.96 4.8-10.[address] CenterBlood erythrocytes automated count (number/volume)2020-04-06 04:50:00* Test Item Value Reference Range Interpretation Comments Red Blood Count (test code = 789-8) 4.41 3.6-5.[address] CenterBlood hemoglobin measurement (moles/volume)2020-04-06 04:50:00* Test Item Value Reference Range Interpretation Comments Hemoglobin (test code = 93050-1) 12.0 12.0-16.[address] CenterAutomated blood hematocrit (volume fraction)2020-04-06 04:50:00* Test Item Value Reference Range Interpretation Comments Hematocrit (test code = 4544-3) 37.2 34.2-44.[address] CenterAutomated erythrocyte mean corpuscular uvlaaq9273-60-52 04:50:00* Test Item Value Reference Range Interpretation Comments Mean Corpuscular Volume (test code = 787-2) 84.4 81-[address] CenterAutomated erythrocyte mean corpuscular hemoglobin (mass per erythrocyte)2020-04-06 04:50:00* Test Item Value Reference Range Interpretation Comments Mean Corpuscular Hemoglobin (test code = 785-6) 27.2 28-[address] CenterAutomated erythrocyte mean corpuscular hemoglobin concentration measurement (mass/volume)2020-04-06 04:50:00* Test Item Value Reference Range Interpretation Comments Mean Corpuscular Hemoglobin Concent (test code = 786-4) 32.3 31-[address] [facility] Medical CenterRDW UheUz-Yor4704-25-31 04:50:00* Test Item Value Reference Range Interpretation Comments Red Cell Distribution Width (test code = 95131-0) 14.1 11.7 -14.[address] CenterAutomated blood platelet count (count/volume)2020-04-06 04:50:00* Test Item Value Reference Range Interpretation Comments Platelet Count (test code = 777-3) 164 140-[address] CenterAutomated blood segmented neutrophil count as percentage of total bwipuejwws1376-04-94 04:50:00* Test Item Value Reference Range Interpretation Comments Neutrophils (%) (Auto) (test code = 05018-8) 55.7 38.7-80.[address] CenterAutomated blood lymphocyte count as percentage ot total cxywmceaqh4705-41-04 04:50:00* Test Item Value Reference Range Interpretation Comments Lymphocytes (%) (Auto) (test code = 736-9) 28.3 18.0-39.[address] CenterAutomated blood monocyte count as percentage of total indfrxghtk0783-54-21 04:50:00* Test Item Value Reference Range Interpretation Comments Monocytes (%) (Auto) (test code = 5905-5) 10.9 4.4-11.[address] CenterAutomated blood eosinophil count as percentage of total gegkmlmpdx5791-76-68 04:50:00* Test Item Value Reference Range Interpretation Comments Eosinophils (%) (Auto) (test code = 713-8) 4.0 0.0-6.[address] CenterAutomated blood basophil count as percentage of total xntlkidozt0940-65-47 04:50:00* Test Item Value Reference Range Interpretation Comments Basophils (%) (Auto) (test code = 706-2) 0.8 0.0-1.[address] CenterFluoroscopic procedure less than one hour hbsxgfzr4320-16-62 04:50:00* Test Item Value Reference Range Interpretation Comments IM GRANULOCYTES % (test code = IM GRANULOCYTES %) 0.3 0.0- 1.[address] CenterAutomated blood neutrophil count 2020-04-06 04:50:00* Test Item Value Reference Range Interpretation Comments Neutrophils # (Auto) (test code = 751-8) 2.2 2.1-6.[address] CenterBlood lymphocytes count (number/volume) 2020-04-06 04:50:00* Test Item Value Reference Range Interpretation Comments Lymphocytes # (Auto) (test code = 51507-6) 1.1 1.0-3.[address] CenterBlood monocytes automated count (number/volume)2020-04-06 04:50:00* Test Item Value Reference Range Interpretation Comments Monocytes # (Auto) (test code = 742-7) 0.4 0.2-0.[address] CenterAutomated blood eosinophil count 2020-04-06 04:50:00* Test Item Value Reference Range Interpretation Comments Eosinophils # (Auto) (test code = 711-2) 0.2 0.0-0.[address] [facility] CenterAutomated blood basophil count (count/volume)2020-04-06 04:50:00* Test Item Value Reference Range Interpretation Comments Basophils # (Auto) (test code = 704-7) 0.0 0.0-0.[address] CenterFluoroscopic procedure less than one hour nwxmbffk8804-94-59 04:50:00* Test Item Value Reference Range Interpretation Comments Absolute Immature Granulocyte (auto (izabel t code = Absolute Immature Granulocyte (auto) 0.01 0-0.1 [facility] or plasma magnesium measurement (mass/volume)2020-04-06 04:50:00* Test Item Value Reference Range Interpretation Comments Magnesium Level (test code = 84037-5) 1.8 1.3-2.[address] CenterUS XUPMWYGHRTT7323-02-72 10:25:00 [facility] [address] [address] Patient Name: RANDALL JAVIER MR #: [id number] : 1990 Age/Sex: 29/F Req #: [id number] Adm Physician: RYAN URENA MD Ordered by: YEHUDA GOMEZ DO Report #: [id number] Location: [facility] Room/Bed: [place] [address] Procedure: [id number] US/US GALLBLADDER Exam Date: 04/05/20 Exam Time: [...] DENISSE on 04/05/20 1038 COPY TO: YEHUDA GOMEZ DO CT ABDOMEN/PELVIS [id number] 02:04:00 [place] [address] Patient Name: RANDALL JAVIER MR #: [id number] : 1990 Age/Sex: 29/F Req #: [id number] Adm Physician: Ordered by: YEHUDA GOMEZ DO Report #: [id number] Location: ER Room/Bed: Procedure: [id number] CT/CT ABDOMEN/PELVIS W Exam Date: 04/05/20 Exam [...] set by the Radiation Protocol C ommittee (RPC). Dose modulation, iterative reconstruction, and/or weight [...] T O: YEHUDA GOMEZ DO Urine color zukbhqukqoxid2031-23-20 23:00:00* Test Item Value Reference Range Interpretation Comments Urine Color (test code = 5778-6) YELLOW [facility]LLOW [facility] xlnthvx1161-99-18 23:00:00* Test Item Value Reference Range Interpretation Comments Urine Clarity (test code = 28034-3) CLEAR CLEAR [facility]ownpecific gravity of Urine by Test strip 2020-04-04 23:00:00* Test Item Value Reference Range Interpretation Comments Urine Specific [place] (test code = 5811-5) 1.025 1.010-1.[address] [facility] CenterUrine pH measurement by automated test cguxv4642-20-24 23:00:00* Test Item Value Reference Range Interpretation Comments Urine pH (test code = 99934-4) 7 5-[address] [facility] CenterUrine leukocyte esterase detection by siyebaek2678-76-68 23:00:00* Test Item Value Reference Range Interpretation Comments Urine Leukocyte Esterase (test code = 5799-2) NEGATIVE NEGATIVE [facility] CenterUrine nitrite mfhxmzoye2808-97-06 23:00:00* Test Item Value Reference Range Interpretation Comments Urine Nitrite (test code = 39148-1) NEGATIVE NEGATIVE [facility] CenterUrine protein measurement by test strip (mass/volume)2020-04-04 23:00:00* Test Item Value Reference Range Interpretation Comments Urine Protein (test code = 5804-0) NEGATIVE NEGATIVE [facility] CenterUrine glucose fufppmamt2872-38-29 23:00:00* Test Item Value Reference Range Interpretation Comments Urine Glucose (UA) (test code = 2349-9) NEGATIVE NEGATIVE [facility] CenterUrine ketones detection by automated test lywin5837-09-79 23:00:00* Test Item Value Reference Range Interpretation Comments Urine Ketones (test code = 70234-4) NEGATIVE NEGATIVE [facility] CenterUrine urobilinogen measurement by test strip (mass/volume)2020-04-04 23:00:00* Test Item Value Reference Range Interpretation Comments Urine Urobilinogen (test code = 87883-2) 0.2 0.2-[address] CenterUrine total bilirubin measurement (mass/volume)2020-04-04 23:00:00* Test Item Value Reference Range Interpretation Comments Urine Bilirubin (test code = 1978-6) NEGATIVE NEGATIVE [facility] CenterUrine erythrocytes rxsducwvc7315-52-98 23:00:00* Test Item Value Reference Range Interpretation Comments Urine Blood (test code = 32198-4) TRACE NEGATIVE [facility] CenterAutomated urine sediment leukocyte count by microscopy (number/high power field)2020-04-04 23:00:00* Test Item Value Reference Range Interpretation Comments Urine WBC (test code = 5821-4) 6-10 0-[address] [facility] CenterErythrocytes detection in urine sediment by light oehqjsnmab6492-84-40 23:00:00* Test Item Value Reference Range Interpretation Comments Urine RBC (test code = 44419-3) 6-10 0-[address] [facility] CenterBacteria detection in urine sediment by light sbbadwdkpt3036-73-89 23:00:00* Test Item Value Reference Range Interpretation Comments Urine Bacteria (test code = 55774-8) MODERATE NONE [facility] CenterEpithelial cells detection in urine sediment by light uafeagmpmd7479-75-75 23:00:00* Test Item Value Reference Range Interpretation Comments Urine Epithelial Cells (test code = 70077-4) FEW NONE [facility] CenterUrine human chorionic gonadotropin (hCG) vecefvktl1872-15-64 23:00:00* Test Item Value Reference Range Interpretation Comments Urine Test (test code = 2106-3) NEGATIVE NEGATIVE [facility]um or plasma lipase measurement (enzymatic activity/volume)2020-04-04 20:10:00* Test Item Value Reference Range Interpretation Comments Lipase (test code = 3040-3) 37 8-[address] [facility] CenterUS HSHDNITLJNR5974-19-22 11:26:00 [facility] [address] [address] Patient Name: RANDALL IVORY MR #: [id number] : 1990 Age/Sex: 29/F Req #: [id number] Adm Physician: MONA JULIAN MD Ordered by: MONA JULIAN MD Report #: [id number] Location: MED/SURG Room/Bed: [facility] Procedure: [id number] U S/US GALLBLADDER Exam Date: 03/10/20 Exam Time: 09 REPORT STATUS: Signed EXAM: Rig ht upper [...] 11:28 AM Dictated By: CUBA PAYTON MD [id number] Transcribed By: DENISSE on 03/10/20 1128 COPY TO: MONA JULIAN MD Serum or plasma total bilirubin measurement (mass/volume)2020-03-10 05:15:00* Test Item Value Reference Range Interpretation Comments Total Bilirubin (test code = 1975-2) 0.9 0.2-1.2 [facility] or plasma conjugated bilirubin measurement (mass/volume)2020-03-10 05:15:00* Test Item Value Reference Range Interpretation Comments Direct Bilirubin (test code = 09243-8) 0.5 0.0-0.[address] [facility] CenterFluoroscopic procedure less than one hour gqxdyjcy2072-73-39 05:15:00* Test Item Value Reference Range Interpretation Comments Aspartate Amino Transf (AST/SGOT) (test code = Aspartate Amino Transf (AST/SGOT)) 63 5-34 [facility] or plasma alanine aminotransferase measurement (enzymatic activity/volume)2020-03-10 05:15:00* Test Item Value Reference Range Interpretation Comments Alanine Aminotransferase (ALT/SGPT) (test code = 1742-6) 532 0-55 [facility]um or plasma protein measurement (mass/volume)2020-03-10 05:15:00* Test Item Value Reference Range Interpretation Comments Total Protein (test code = 2885-2) 6.8 6.5-8.1 [facility] [facility] albumin [facility] (mass/volume)2020-03-10 05:15:00* Test Item Value Reference Range Interpretation Comments Albumin (test code = 1751-7) 3.7 3.5-5.0 [facility] alkaline phosphatase measurement (enzymatic activity/volume)2020-03-10 05:15:00* Test Item Value Reference Range Interpretation Comments Alkaline Phosphatase (test code = 6768-6) 155 40-150 [facility] plasma lipase measurement (enzymatic activity/volume)2020-03-10 05:15:00* Test Item Value Reference Range Interpretation Comments Lipase (test code = 3040-3) 92 8-[address] [facility] CenterBlood leukocytes automated count (number/volume)2020-03-09 05:30:00* Test Item Value Reference Range Interpretation Comments White Blood Count (test code = 6690-2) 5.17 4.8-10.[address] [facility] CenterBlood erythrocytes automated count (number/volume)2020-03-09 05:30:00* Test Item Value Reference Range Interpretation Comments Red Blood Count (test code = 789-8) 4.79 3.6-5.[address] [facility] CenterBlood hemoglobin measurement (moles/volume)2020-03-09 05:30:00* Test Item Value Reference Range Interpretation Comments Hemoglobin (test code = 62520-4) 13.3 12.0-16.[address] [facility] CenterAutomated blood hematocrit (volume fraction)2020-03-09 05:30:00* Test Item Value Reference Range Interpretation Comments Hematocrit (test code = 4544-3) 39.5 34.2-44.[address] CenterAutomated erythrocyte mean corpuscular exivpr7535-06-68 05:30:00* Test Item Value Reference Range Interpretation Comments Mean Corpuscular Volume (test code = 787-2) 82.5 81-[address] [facility] [facility] CenterAutomated erythrocyte mean corpuscular hemoglobin (mass per erythrocyte)2020-03-09 05:30:00* Test Item Value Reference Range Interpretation Comments Mean Corpuscular Hemoglobin (test code = 785-6) 27.8 28-[address] [facility] CenterAutsandhills regional medical centered erythrocyte mean corpuscular hemoglobin concentration measurement (mass/volume)2020-03-09 05:30:00* Test Item Value Reference Range Interpretation Comments Mean Corpuscular Hemoglobin Concent (test code = 786-4) 33.7 31-[address] [facility] [facility] Medical CenterRDW GruVr-Dzd9420-26-03 05:30:00* Test Item Value Reference Range Interpretation Comments Red Cell Distribution Width (test code = 93324-2) 13.8 11.7 -14.[address] [facility] CenterAutomated blood platelet count (count/volume)2020-03-09 05:30:00* Test Item Value Reference Range Interpretation Comments Platelet Count (test code = 777-3) 210 140-360 [facility] neutrophil count as percentage of total lhhrjhaygn6611-44-34 05:30:00* Test Item Value Reference Range Interpretation Comments Neutrophils (%) (Auto) (test code = 63821-7) 57.7 38.7-80.0 [facility] lymphocyte count as percentage ot total qvlajtgtor2450-83-72 05:30:00* Test Item Value Reference Range Interpretation Comments Lymphocytes (%) (Auto) (test code = 736-9) 26.3 18.0-39.[address] CenterAutomated blood monocyte count as percentage of total wwmujlfvjh8103-27-38 05:30:00* Test Item Value Reference Range Interpretation Comments Monocytes (%) (Auto) (test code = 5905-5) 10.4 4.4-11.[address] CenterAutomated blood eosinophil count as percentage of total xfhlkoszly5790-01-32 05:30:00* Test Item Value Reference Range Interpretation Comments Eosinophils (%) (Auto) (test code = 713-8) 4.6 0.0-6.[address] [facility] CenterAutomated blood basophil count as percentage of total tpqjkuedvx4765-89-34 05:30:00* Test Item Value Reference Range Interpretation Comments Basophils (%) (Auto) (test code = 706-2) 0.8 0.0-1.[address] [facility] Medical CenterFluoroscopic procedure less than one hour eqhzflza2211-39-43 05:30:00* Test Item Value Reference Range Interpretation Comments IM GRANULOCYTES % (test code = IM GRANULOCYTES %) 0.2 0.0- 1.[address] [facility] Medical CenterAutomated blood neutrophil count 2020-03-09 05:30:00* Test Item Value Reference Range Interpretation Comments Neutrophils # (Auto) (test code = 751-8) 3.0 2.1-6.[address] CenterBlood lymphocytes count (number/volume) 2020-03-09 05:30:00* Test Item Value Reference Range Interpretation Comments Lymphocytes # (Auto) (test code = 86362-6) 1.4 1.0-3.[address] [facility] CenterBlood monocytes automated count (number/volume)2020-03-09 05:30:00* Test Item Value Reference Range Interpretation Comments Monocytes # (Auto) (test code = 742-7) 0.5 0.2-0.[address] [facility] CenterAutomated blood eosinophil count 2020-03-09 05:30:00* Test Item Value Reference Range Interpretation Comments Eosinophils # (Auto) (test code = 711-2) 0.2 0.0-0.[address] [facility] CenterAutomated blood basophil count (count/volume)2020-03-09 05:30:00* Test Item Value Reference Range Interpretation Comments Basophils # (Auto) (test code = 704-7) 0.0 0.0-0.[address] [facility] CenterFluoroscopic procedure less than one hour odlbxgfr8974-66-15 05:30:00* Test Item Value Reference Range Interpretation Comments Absolute Immature Granulocyte (auto (izabel t code = Absolute Immature Granulocyte (auto) 0.01 0-0.1 [facility] sodium measurement (moles/volume)2020-03-09 05:30:00* Test Item Value Reference Range Interpretation Comments Sodium Level (test code = 2951-2) 138 136-145 [facility] plasma potassium measurement (moles/volume)2020-03-09 05:30:00* Test Item Value Reference Range Interpretation Comments Potassium Level (test code = 2823-3) 3.2 3.5-5.1 [facility] plasma chloride measurement (moles/volume)2020-03-09 05:30:00* Test Item Value Reference Range Interpretation Comments Chloride Level (test code = 2075-0) 110 98-107 [facility] or plasma carbon dioxide, total measurement (moles/volume)2020-03-09 05:30:00* Test Item Value Reference Range Interpretation Comments Carbon Dioxide Level (test code = 2028-9) 16 22-29 [facility]um or plasma anion jap0556-79-70 05:30:00* Test Item Value Reference Range Interpretation Comments Anion Gap (test code = 42638-0) 15.2 8-16 [facility] plasma urea nitrogen measurement (mass/volume)2020-03-09 05:30:00* Test Item Value Reference Range Interpretation Comments Blood Urea Nitrogen (test code = 3094-0) 5 7-26 [facility] plasma creatinine measurement (mass/volume)2020-03-09 05:30:00* Test Item Value Reference Range Interpretation Comments Creatinine (test code = 2160-0) 0.62 0.57-1.11 [facility] or plasma urea nitrogen/creatinine mass feupt3964-80-97 05:30:00* Test Item Value Reference Range Interpretation Comments BUN/Creatinine Ratio (test code = 3097-3) 8 6-[address] Medical CenterEstimated glomerular filtration rate (GFR) zaddmljaubexo6349-41-47 05:30:00* Test Item Value Reference Range Interpretation Comments Estimat Glomerular Filtration Rate (test code = 119677733) > 60 >60 Ranges were taken from the National Kidney Disease Education Program and the [facility] Kidney Foundation literature.Reference ranges:60 or greater: Bbdgxd53-44 ( for 3 consecutive months): Chronic kidney disease 15 or less: Kidney failureCH[facility] St[facility] – Patients Medical CenterGlucose rofjyfjjrts7422-54-09 05:30:00* Test Item Value Reference Range Interpretation Comments Glucose Level (test code = XJI7832) 65 74-118 [facility] plasma calcium measurement (mass/volume)2020-03-09 05:30:00* Test Item Value Reference Range Interpretation Comments Calcium Level (test code = 24438-3) 8.9 8.4-10.[address] CenterMRI MRCP [id number] 19:05:00 [facility] [address] [address] Patient Name: RANDALL IVORY MR #: [id number] : 1990 Age/Sex: 29/F Req #: [id number] Adm Physician: OMNA JULIAN MD Ordered by: MONA JULIAN MD Report #: [id number] Location: MED/SURG Room/Bed: [facility] Procedure: [id number] M RI/MRI MRCP WO Exam Date: Exam [...] MD 12 Transcribed By: DENISSE on 03/08/20 191 3 COPY TO: MONA JULIAN MD Serum or plasma ethanol measurement (mass/volume)2020-03-07 16:02:00* Test Item Value Reference Range Interpretation Comments Ethyl Alcohol Level (test code = 5643-2) < 10.0 0.0-10.[address] [id number] 17:00:00 [facility] [address] [place] [address] Patient Name: RANDALL IVORY MR #: [id number] : 1990 Age/Sex: 29/F Req #: [id number] Adm Physician: Ordered by: PABLO DUNCAN COMMERCIAL PRODUCTION EDITOR Report #: [id number] Location: ER Room/Bed: Procedure: CT/CT ABDOMEN W [...] DENISSE on 03/06/201704 COPY TO: PABLO DUNCAN NP CT ABDOMEN/PELVIS JR5020-04-06 16:04:[address] [address] Patient Name: RANDALL IVORY MR #: [id number] : 1990 Age/Sex: 29/F Req #: [id number] Adm Physician: Ordered by: PABLO DUNCAN COMMERCIAL PRODUCTION EDITOR Report #: [id number] Location: ER Room/Bed: Procedure: CT/CT ABDOMEN/PELVIS WO [...] Color (test code = 5778-6) STRAW YELLOW [facility] CenterUrine gkeynlm7687-01-12 14:20:00* Test Item Value Reference Range Interpretation Comments Urine Clarity (test code = 68932-3) SL CLOUDY CLEAR [facility] Uptownpecific gravity of Urine by Test strip 2020-03-06 14:20:00* Test Item Value Reference Range Interpretation Comments Urine Specific [place] (test code = 5811-5) 1.020 1.010-1.[address] [facility] CenterUrine pH measurement by automated test tekdp4635-47-80 14:20:00* Test Item Value Reference Range Interpretation Comments Urine pH (test code = 46749-0) 7 5-[address] [facility] Medical CenterUrine leukocyte esterase detection by nrulgjqu9831-23-67 14:20:00* Test Item Value Reference Range Interpretation Comments Urine Leukocyte Esterase (test code = 5799-2) NEGATIVE NEGATIVE [facility] CenterUrine nitrite xbzsjwpor2168-00-46 14:20:00* Test Item Value Reference Range Interpretation Comments Urine Nitrite (test code = 54897-5) NEGATIVE NEGATIVE [facility] CenterUrine protein measurement by test strip (mass/volume)2020-03-06 14:20:00* Test Item Value Reference Range Interpretation Comments Urine Protein (test code = 5804-0) NEGATIVE NEGATIVE [facility] CenterUrine glucose xzdqhniay8743-52-99 14:20:00* Test Item Value Reference Range Interpretation Comments Urine Glucose (UA) (test code = 2349-9) NEGATIVE NEGATIVE [facility] CenterUrine ketones detection by automated test txnvk3256-07-21 14:20:00* Test Item Value Reference Range Interpretation Comments Urine Ketones (test code = 93168-4) NEGATIVE NEGATIVE [facility] CenterUrine urobilinogen measurement by test strip (mass/volume)2020-03-06 14:20:00* Test Item Value Reference Range Interpretation Comments Urine Urobilinogen (test code = 55067-7) 0.2 0.2-[address] [facility] Medical CenterUrine total bilirubin measurement (mass/volume)2020-03-06 14:20:00* Test Item Value Reference Range Interpretation Comments Urine Bilirubin (test code = 1978-6) MODERATE NEGATIVE [facility] CenterUrine erythrocytes fclxpdgxr6059-20-30 14:20:00* Test Item Value Reference Range Interpretation Comments Urine Blood (test code = 53905-2) TRACE NEGATIVE [facility] CenterAutomated urine sediment leukocyte count by microscopy (number/high power field)2020-03-06 14:20:00* Test Item Value Reference Range Interpretation Comments Urine WBC (test code = 5821-4) NONE 0-[address] Medical CenterErythrocytes detection in urine sediment by light ierweobovl5747-71-25 14:20:00* Test Item Value Reference Range Interpretation Comments Urine RBC (test code = 96476-2) 0-5 0-[address] [facility] CenterBacteria detection in urine sediment by light onbxcevfoj3323-39-28 14:20:00* Test Item Value Reference Range Interpretation Comments Urine Bacteria (test code = 44446-5) RARE NONE [facility] CenterEpithelial cells detection in urine sediment by light ejoumajeoy9639-03-58 14:20:00* Test Item Value Reference Range Interpretation Comments Urine Epithelial Cells (test code = 67880-7) FEW NONE [facility] Medical CenterPlasma globulin measurement (mass/volume) 2020-03-06 14:20:00* Test Item Value Reference Range Interpretation Comments Globulin (test code = 15490-8) 2.9 2.3-3.5 [facility] or plasma albumin/globulin mass thtmo9826-13-56 14:20:00* Test Item Value Reference Range Interpretation Comments Albumin/Globulin Ratio (test code = 1759-0) 1.4 0.8-2.0 [facility] or plasma amylase measurement (enzymatic activity/volume)2020-03-06 14:20:00* Test Item Value Reference Range Interpretation Comments Amylase Level (test code = 1798-8) 3642 25-125 [facility] Uptownerum or plasma choriogonadotropin ( test) gpxlrcoco3984-98-99 14:20:00* Test Item Value Reference Range Interpretation Comments Human Chorionic Gonadotropin, Qual (test code = 2118-8) NEGATIVE NEGATIVE [facility] CenterURINALYSIS HDMPQNTK5731-24-05 06:57:00* Test Item Value Reference Range Interpretation [...] COMMENTS: repeat urinalysis Urine Source? Clean CatchURINALYSIS FYGFQLWC7132-79-16 06:55:00* Test Item Value Reference Range Interpretation [...] HCG SERUM BETA (test code = HCG) 47171.0 mIU/mL 0-3 H Interfering substances present in [...] MONTHS AFTER CONCEPTION 10,000-100,000 MIU/ML BASIC METABOLIC FUCRK6251-85-56 05:42:00* Test Item Value Reference Range Interpretation [...] CA) 8.8 mg/dL 8.5-10.1 N HEPATIC FUNCTION OPBAS1255-87-73 05:42:00* Test Item Value Reference Range Interpretation [...] reference range due to change in reagent. DUOOEX4411-21-94 05:42:00* Test Item Value Reference Range Interpretation Comments LIPASE (test code = LIP) 87 U/L 73.0-393.0 N BYNIRPNK-K4218-47-22 05:42:00* Test Item Value Reference Range Interpretation Comments TROPONIN-I (test code = TROPI) <0.015 ng/mL 0-0.045 N CBC W/O LGQW9800-16-09 05:40:00* Test Item Value Reference Range Interpretation [...] MPV) 10.4 fL 6.7-11.0 N CBC W/O [id number] 05:19:00* Test Item Value Reference Range Interpretation [...] = MPV) fL 6.7-11.0 - US ABDOMEN [id number] 04:57:00 Name: YAYA BERGERSERANDALL JACOME [facility] : 1990 Age/S: 28 / F [place] y Unit #: [id number] Loc: [place] [address] Phys: Gertrudis Angel COMMERCIAL PRODUCTION EDITOR Acct: [id number] Dis Date: Status: REG ER PHONE #: [phone] Exam Date: 07/29/2019429 FAX #: [phone] Reason: Epigastric EXAMS: CPT CODE: [id number] US ABDOMEN LTD 02772 EXAM: RIGHT UPPER QUADRANT ABDOMINAL ULTRASOUND INDICATION: [...] Report (CONTINUED) Name: RANDALL DE LA CRUZ [facility] : 1990 Age/S: 28 / F [address] [facility] Unit #: [id number] [place] [address] Phy s: Gertrudis Angel NP Acct: [id number] Dis Date: Status: REG ER PHONE #: [phone] Exam Date: 07/29/2019429 FAX #: [phone] Reason: Epigastric EXAMS: CPT CODE: [id number] US ABDOMEN LTD 41338 <Continued> CC: Gertrudis Angel NP Technologist: Patricia Galvan RT(S), [facility] Trnmab Date/Time: 07/29/2019 (0457) [email or web address] Orig Print D/T: S: 07/29/2019 (0530) [...] #/LPF NONE Urine Source? Clean CatchBASIC METABOLIC [id number] 07:49:00* Test Item Value Reference Range Interpretation Comments SODIUM (test code = NA) 141 mmol/L 136-145 N POTASSIUM (test code = K) 2.8 mmol/L 3.5-5.1 LL Re sults called to [id number] by EDU 07/25/19 0643Critical results verified and [...] CA) 8.6 mg/dL 8.5-10.1 N HCG SERUM [id number] 07:49:00* Test Item Value Reference Range Interpretation Comments HCG SERUM BETA (test code = HCG) 52840.0 mIU/mL 0-3 H Interfering substances present in [...] MIU/ML2-3 MONTHS AFTER CONCEPTION 10,000-100,000 MIU/ML URINALYSIS [id number] 06:47:00* Test Item Value Reference Range Interpretation [...] #/LPF FEW Urine Source? Clean CatchBASIC METABOLIC [id number] 06:43:00* Test Item Value Reference Range Interpretation Comments SODIUM (test code = NA) 141 mmol/L 136-145 N POTASSIUM (test code = K) 2.8 mmol/L 3.5-5.[address] [facility] called to [id number] by V.[email or web address] 07/25/19 0643Critical results verified and [...] CA) 8.6 mg/dL 8.5-10.1 N HCG SERUM [id number] 06:43:00* Test Item Value Reference Range Interpretation Comments HCG SERUM BETA (test code = HCG) mIU/mL 0-3 - US PREG AFTER [id number] 06:17:00 Name: RANDALL JAVIER [facility] : 1990 Age/S: 28 / F [address] [facility] Unit #: [id number] Loc: [place] [address] Phys: DavidnoblecherelleDillan Derrek PRODUCTION SUPPORT ANALYST Acct: [id number] Dis Date: Status: REG ER PHONE #: [phone] Exam Date: 07/25/2019 0557 FAX #: [phone] Reason: VAGINAL BLEEDING/PELVIC PAIN EXAMS: CPT CODE: [id number] US PREG AFTER TRI 47170 EXAM: LIMITED OBSTETRIC ULTRASOUND INDICATION: VAGINAL BLEEDING/PELVIC [...] 1 Signed Report (CONTINUED) Name: RANDALL JAVIER : 1990 Age/S: 28 / F [place] Unit #: [id number] Loc: [place] [address] Phys: Dillan Up Acct: [id number] Dis Date: Status: REG ER PHONE #: [phone] Exam Date: 07/25/2019 0557 FAX #: [phone] Reason: VAGINAL BLEEDING/PELVIC PAIN EXAMS: CPT CODE: [id number] US PREG AFTER TRI 07933 < Continued> at 0617 Reported and signed by: Naomi Patiño M.D. CC: Dillan Up Technologist: CARMEN AGUIRRE RDMS Trnscb Date/Time: 07/25/2019 (616) [email or web address] Orig Print D/T: S: 07/25/2019 (06) Probe: PAGE 2 Signed Report CBC W/O [id number] 06:08:00* Test Item Value Reference Range Interpretation [...]
--- NOTE | 2020-04-09 04:00 | NUR ---
Patient arrived to unit from ER in stable condition, no s/s of distress, denies pain at this time. All safety measures in place. Will continue to monitor.
[2020-04-09] MEDS: SODIUM CHLORIDE 0.9% 1000ML 1,000 ML IV SCH ×3 (04:01→21:16)
--- NOTE | 2020-04-09 07:04 | NUR ---
Bedside report given to day nurse. Patient awake and resting in bed, no s/s of distress at this time. All safety measures in place.
[2020-04-09] MEDS ORDERED: POTASSIUM CHLORIDE 20MEQ/100ML 200 ML IV ONE (09:00)
--- NOTE | 2020-04-09 09:11 | NUR ---
GAVE PACKET OF INFORMATION WITH COMMUNITY RESOURCES FOR ASSISTANCE WITH LOW TO NO INCOME TO PATIENT. RESOURCES THAT PATIENT MAY BE ABLE TO FOLLOW UP UPON DISCHARGE. PT EDUCATED ON EACH RESOURCE AND UNDERSTANDING HOW TO FOLLOW UP TO SEE IF QUALIFIED FOR EACH RESOURCE.
--- NOTE | 2020-04-09 10:24 | NUR ---
Leaving unit for CT of head and MRCP
--- NOTE | 2020-04-09 10:58 | Diagnostic Imaging Report ---
CT BRAIN WO HISTORY: Vertigo COMPARISON: None. TECHNIQUE: Noncontrast axial scans were obtained from skull base to the vertex. Coronal and sagittal reconstructions obtained from the axial data. One or more of the following dose reduction techniques were used: Automated exposure control, adjustment of the mA and/or kV according to patient size, and/or utilization of iterative reconstruction technique. DISCUSSION: Scalp/Skull: Unremarkable. Brain sulci: Appropriate for patient's age. Ventricles: Normal in size and configuration. No hydrocephalus. Extra-axial spaces: No masses or fluid collections. Parenchyma: No abnormal densities. No mass, hemorrhage, or large vascular territory acute infarct. Dural sinuses: No abnormal densities. Sellar/Suprasellar region: Intact. Skull base: Intact. Incidental findings: None. IMPRESSION: No intracranial abnormalities. Signed by: Dr. Vineet Xiao M.D. on 04/09/2020 10:55 AM
--- NOTE | 2020-04-09 13:04 | Diagnostic Imaging Report ---
TECHNIQUE: MRI of the abdomen and MRCP WITHOUT intravenous contrast. 3-D volume reconstructions were obtained to evaluate the biliary ductal system. INDICATION: 29-year-old woman with gallstone pancreatitis status post cholecystectomy. COMPARISON: Abdomen and pelvis CT 04/05/2020. FINDINGS: ABSENCE OF INTRAVENOUS CONTRAST DECREASES SENSITIVITY FOR DETECTION OF FOCAL LESIONS AND VASCULAR PATHOLOGY. LOWER THORAX: Unremarkable. LIVER: No hepatic signal abnormality. 1.3 x 1.1 cm mildly T2 hyperintense lesion in segment 7 correlates with an area of enhancement on recent CT. Additional 1 cm T2 hyperintense lesion in segment 6 also correlates with an area of enhancement on recent CT. BILIARY: Interval cholecystectomy. Intrahepatic and extrahepatic bile ducts are normal in caliber and contour without definite filling defect. SPLEEN: No splenomegaly. PANCREAS: No focal masses or ductal dilatation. ADRENALS: No adrenal nodules. KIDNEYS/URETERS: No hydronephrosis or solid mass lesions. PERITONEUM/RETROPERITONEUM: No free fluid. LYMPH NODES: No lymphadenopathy. VESSELS: Unremarkable. GI TRACT: No distention or wall thickening. BONES AND SOFT TISSUES: Unremarkable. IMPRESSION: Interval cholecystectomy. No biliary ductal dilatation or definite choledocholithiasis. Two lesions in the right hepatic lobe, both of which enhanced with contrast on recent CT. While these lesions are likely benign, they remain incompletely characterized. Nonemergent abdomen MRI with and without intravenous contrast (liver protocol) may be obtained for further characterization. Signed by: Zenaida Patton MD on 04/09/2020 1:00 PM
--- NOTE | 2020-04-09 19:25 | Consultation ---
DATE OF CONSULTATION: 04/09/2020 HISTORY OF PRESENT ILLNESS: The patient is a 29-year-old female known to me, she had surgery 4 days ago for laparoscopic cholecystectomy for huauz-uz-sgpltgv cholecystitis. She developed abdominal pain with nausea and vomiting yesterday, came back to the emergency room, evaluation revealed findings suggestive of pancreatitis. The patient says her pain is gone now. She had an MRCP done today, which were done, did not reveal any common bile duct stones, no biliary dilation. PAST MEDICAL HISTORY: Otherwise, unremarkable detailed in the chart from the recent admission. REVIEW OF SYSTEMS: As stated in the history of present illness, otherwise was negative. She has not had any fever. PHYSICAL EXAMINATION: GENERAL: The patient is awake and alert. VITAL SIGNS: Her vital signs are normal. HEENT: The sclerae is not icteric. NECK: No masses. LUNGS: Equal breath sounds are clear bilaterally. CARDIAC: Regular rate and rhythm. ABDOMEN: Soft. There was no tenderness. No mass. No organomegaly. Wounds were clean. EXTREMITIES: Have no edema. NEUROLOGIC: Intact. LABORATORY TESTS: CBCs are normal. Chemistries revealed elevated amylase and lipase as well as abnormal liver function tests with elevated bilirubin on admission. Repeat labs are pending. MRCP is as stated above. ASSESSMENT: A 29-year-old female with pancreatitis, likely secondary to the common bile duct stone, which has passed. MRCP is negative and her pain is gone. Plan to start the patient on liquid diet. Her lab tests are to be repeated, lab tests are improved. If she tolerated diet, she likely can be discharged soon. Thank you for asking me to see Ms. Gibson. MD JACOBO Bernabe/ZACK /[id number]
[2020-04-10] VITALS: BP 116/78
[2020-04-10 00:05] VITALS: BP 116/78
[2020-04-10] MEDS: SODIUM CHLORIDE 0.9% 1000ML 1,000 ML IV SCH (01:01)
[2020-04-10 04:00] VITALS: BP 119/65
[2020-04-10 05:55] LABS: BASOPHILS % 0.6 % (0.0-1.0); EOSINOPHILS # (AUTO) 0.1 (0.0-0.4); EOSINOPHILS % 2.1 % (0.0-6.0); HEMATOCRIT 35.4 % (34.2-44.1); HEMOGLOBIN 11.6 g/dL (12.0-16.0); LYMPHOCYTES # (AUTO) 1.5 (1.0-3.2); LYMPHOCYTES % 29.1 % (18.0-39.1); MEAN CORPUSCULAR HGB CONC 32.8 g/dL (31-35); MEAN CORPUSCULAR VOLUME 85.5 fL (81-99); MONOCYTES # (AUTO) 0.5 (0.2-0.8); MONOCYTES % 9.6 % (4.4-11.3); NEUTROPHILS % 58.4 % (38.7-80.0); PLATELET COUNT 154 x10e3/uL (140-360); RED BLOOD COUNT 4.14 x10e6/uL (3.6-5.1); RED CELL DISTRIBUTION WIDTH 13.9 % (11.7-14.4)
[2020-04-10 06:15] LABS: ALANINE AMINOTRANSFERASE 778 IU/L (0-55); ALBUMIN 3.3 g/dL (3.5-5.0); ALBUMIN/GLOBULIN RATIO 1.3 (0.8-2.0); ALKALINE PHOSPHATASE 266 IU/L (40-150); AMYLASE 121 U/L (25-125); ANION GAP 11.3 mmol/L (8-16); BLOOD UREA NITROGEN < 5 mg/dL (7-26); CALCIUM 8.5 mg/dL (8.4-10.2); CARBON DIOXIDE 20 mmol/L (22-29); CHLORIDE 110 mmol/L (98-107); CREATININE, SERUM 0.64 mg/dL (0.57-1.11); EST GLOMERULAR FILTRATION RATE > 60 ML/MIN (60-); GLUCOSE 64 mg/dL (74-118); LIPASE 67 U/L (8-78); POTASSIUM 3.3 mmol/L (3.5-5.1); SODIUM 138 mmol/L (136-145)
[2020-04-10 06:19] LABS: BUN/CREATININE RATIO 8 (6-25)
[2020-04-10] MEDS ORDERED: POTASSIUM CHLORIDE 20 MEQ TAB CR PO ONE (06:50)
[2020-04-10 08:20] VITALS: BP 110/76
[2020-04-10 08:32] VITALS: BP 110/76
[2020-04-10] MEDS ORDERED: POTASSIUM CHLORIDE 20 MEQ TAB CR PO STA (09:40)
--- NOTE | 2020-04-11 00:01 | Discharge Summary ---
ADMISSION DIAGNOSES: Gallstone pancreatitis, hypokalemia, transaminitis secondary to gallstone pancreatitis. DISCHARGE DIAGNOSES: Gallstone pancreatitis, hypokalemia, transaminitis secondary to gallstone pancreatitis. HISTORY: None. SURGICAL HISTORY: and cholecystectomy. FAMILY HISTORY: Noncontributory. SOCIAL HISTORY: Noncontributory. HOSPITAL COURSE: A 29-year-old female admits with complaints of worsening upper abdominal pain since the laparoscopic cholecystectomy on 04/06/2020. Her pain improved once she got home, but then worsened again yesterday. She denies nausea and vomiting. On admission, her lipase was 1048. She was kept n.p.o. and given IV fluids. The patient had an MRCP, which showed no ductal dilatation or definite choledocholithiasis. The patient is tolerating a regular diet and her LFTs are trending down. Per GI and Surgery recommendation, the patient can discharge home. She will follow up with primary care in 1 to 2 weeks. The patient understands instructions and agrees to plan. Vital signs stable, the patient is afebrile. Dictated by Xiomy Montes NP MD CHANDANA Mcpherson/MODL /[id number]
== END 2020-04-10 11:00 | disposition home or self-care (01) | DRG 440 ==
LOC: ER 00:15 → ERHOLD 02:54 → MED/SURG 03:45
PROVIDERS: ADMIT Internal Medicine; ATTEND Internal Medicine
DX: K85.10 Biliary acute pancreatitis without necrosis or infection (principal); E87.6 Hypokalemia; R74.0 Nonspecific elevation of levels of transaminase and lactic acid dehydrogenase [LDH]
CPT/HCPCS: 36415; 70450; 71045; 74181; 80053; 82150; 83690; 85025; 87635; 93005; 99284; J2270; J2405; J3480; J7030